=== PATIENT | female | born 1980 | race Caucasian/White ===

== ENCOUNTER 2016-05-31 16:09 | Inpatient (IN) | payer BC, MEDICAID, OTHER ==
--- NOTE | 2016-05-31 17:02 | ED ---
General Adult HPI - General Chief complaint: Psychiatric Symptoms Stated complaint: Mental Health Time Seen by Provider: 05/31/16 16:40 Source: patient, RN notes reviewed Mode of arrival: ambulatory Limitations: no limitations - History of Present Illness Initial comments: Patient 36-year-old female who presents emergency room today with a chief complaint of Court ordered psychiatric evaluation. Patient does admit that she missed an appointment. She states that the police showed up at her door and brought her here to the emergency room for evaluation. She denies any suicidal thoughts or plans. Denies any homicidal thoughts or plans. Denies any visual or auditory hallucinations. Patient denies any physical complaints. Patient denies any recent fever, chills, shortness of breath, chest pain, back pain, abdominal pain, nausea or vomiting, numbness or tingling, dysuria or hematuria, constipation or diarrhea, headaches or visual changes, or any other complaints. - Related Data Home Medications Medication Instructions Recorded Confirmed Dextroamphetamine/Amphetamine 30 mg PO BID 05/31/16 05/31/16 [Adderall] Venlafaxine HCl [Effexor XR] 150 mg PO DAILY 05/31/16 05/31/16 Previous Rx's Medication Instructions Recorded Divalproex ER [Depakote ER] 1,000 mg PO HS #60 tab.er.[id number] 01/04/16 Allergies Allergy/AdvReac Type Severity Reaction Status Date / Time No Known Allergies Allergy Verified 05/31/16 16:40 Review of Systems ROS Statement: Those systems with pertinent positive or pertinent negative responses have been documented in the HPI. ROS Other: All systems not noted in ROS Statement are negative. Past Medical History Past Medical History: Hypertension History of Any Multi-Drug Resistant Organisms: None Reported Additional Past Surgical History / Comment(s): breast implants Past Anesthesia/Blood Transfusion Reactions: No Reported Reaction Past Psychological History: ADD/ADHD, Bipolar Smoking Status: Former smoker Past Alcohol Use History: None Reported Additional Past Alcohol Use History / Comment(s): Patient has history of smoking and quit when she was 18 years old. She does use marijuana approximately once every 6 months. She drinks alcohol on a rare basis. She denies any medical marijuana card. She is currently but his left her . She has 3-year-old twins and one 6-year-old daughter. Past Drug Use History: None Reported - Past Family History Father Family Medical History: No Reported History Mother Family Medical History: No Reported History Brother(s) Family Medical History: No Reported History Sister(s) Family Medical History: No Reported History General Exam - General Exam Comments Initial Comments: General: The patient is awake and alert, in no distress, and does not appear acutely ill. Eye: Pupils are equal, round and reactive to light, extra-ocular movements are intact. No nystagmus. There is normal conjunctiva bilaterally. No signs of icterus. Ears, nose, mouth and throat: There are moist mucous membranes and no oral lesions. Neck: The neck is supple, there is no tenderness or JVD. Cardiovascular: There is a regular rate and rhythm. No murmur, rub or gallop is appreciated. Respiratory: Lungs are clear to auscultation, respirations are non-labored, breath sounds are equal. No wheezes, stridor, rales, or rhonchi. Gastrointestinal: Soft, non-distended, non-tender abdomen without masses or organomegaly noted. There is no rebound or guarding present. No CVA tenderness. Bowel sounds are unremarkable. Musculoskeletal: Normal ROM, no tenderness. Strength 5/5. Sensation intact. Pulses equal bilaterally 2+. Neurological: A&O x 3. CN II-XII intact, There are no obvious motor or sensory deficits. Coordination appears grossly intact. Speech is normal. Skin: Skin is warm and dry and no rashes or lesions are noted. Psychiatric: Cooperative. Limitations: no limitations Course Vital Signs 05/31/16 05/31/16 16:17 17:07 Temperature 98.0 F Pulse Rate 94 85 Respiratory 20 18 Rate Blood Pressure 243/134 172/103 O2 Sat by Pulse 100 99 Oximetry Medical Decision Making - Medical Decision Making Patient seen here the emergency room by [facility]. They recommend admission. Patient's blood pressure elevated here in the emergency room does have a history of hypertension but has not been taking her blood pressure medication. Patient has been ordered Norvasc. Will be admitted. - Lab Data Lab Results 05/31/16 Range/Units 18:51 Valproic Acid 20.7 ug/mL Disposition Clinical Impression: Bipolar disorder Disposition: TRANSFER TO PSYCH HOSP/UNIT Condition: Stable Time of Disposition: 19:40
[2016-05-31] MEDS: amLODIPine 5 MG TAB PO SCH (19:49)
[2016-05-31] MEDS ORDERED: ZIPRASIDONE 20 MG VIAL IM ONE (21:36)
[2016-05-31] MEDS ORDERED: WATER FOR INJECTION, STERILE 10 ML IV ONE (21:36)
[2016-05-31] MEDS ORDERED: LORazepam 2 MG/ML SYRINGE ONE (21:39)
[2016-05-31] MEDS ORDERED: LORazepam 2 MG/ML SYRINGE IM PRN (21:39)
[2016-05-31] MEDS: ZIPRASIDONE 20 MG VIAL IM PRN (21:59)
[2016-05-31] MEDS ORDERED: MAG HYDROX/AL HYDROX/SIMETH 30 ML CUP PO PRN (22:18)
[2016-05-31] MEDS ORDERED: LORazepam 1 MG TAB PO PRN (22:30)
[2016-05-31 22:59] LABS: Appearance,Urine Cloudy (Clear); Bilirubin,Urine Negative (Negative); Glucose,Urine (UA) Negative (Negative); Ketones,Urine Negative (Negative); Leukocyte Esterase,Urine Moderate (Negative); Mucus,Urine Occasional /hpf; Nitrite,Urine Negative (Negative); PH, Urine 6.5 (5.0-8.0); Particle Count 7449; Protein,Urine Trace (Negative); RBC,Urine 1 /hpf (0-5); Specific Gravity,Urine 1.012 (1.001-1.035); Squamous Epithelial Cell,Urine 9 /hpf (0-4); UA Billing (MACRO vs. MICRO) MICRO; Urobilinogen,Urine <2.0 mg/dL (<2.0); WBC,Urine 15 /hpf (0-5)
[2016-06-01] MEDS ORDERED: ZIPRASIDONE 20 MG CAP PO SCH (09:00)
[2016-06-01] MEDS ORDERED: WATER FOR INJECTION, STERILE 10 ML IV ONE (09:17)
[2016-06-01] MEDS: ZIPRASIDONE 20 MG VIAL IM PRN (09:27)
[2016-06-01 11:04] LABS: Basophils % (A) 0 %; CH 25.1; CHCM 31.5; Eosinophils # (A) 0.1 k/uL (0-0.7); Eosinophils % (A) 3 %; HCT 37.4 % (34.0-46.0); HDW 2.78; HGB 11.7 gm/dL (11.4-16.0); Hypochromasia Slight; Luc # (Auto) 0.09; Luc % (Auto) 2; Lymphocytes % (A) 27 %; MCH 24.9 pg (25.0-35.0); MCHC 31.2 g/dL (31.0-37.0); MCV 79.7 fL (80.0-100.0); Mean Platelet Volume 6.8; Monocytes # (A) 0.3 k/uL (0-1.0); Monocytes % (A) 8 %; Neutrophils # (A) 2.2 k/uL (1.3-7.7); Neutrophils % (A) 60 %; RBC 4.69 m/uL (3.80-5.40); RDW 14.7 % (11.5-15.5); WBC 3.7 k/uL (3.8-10.6); WBC (Perox) 3.97
[2016-06-01 11:13] LABS: ALT 22 U/L (9-52); AST 22 U/L (14-36); Alkaline Phosphatase 56 U/L (38-126); Anion Gap 9 mmol/L; Blood Urea Nitrogen 6 mg/dL (7-17); Calcium 9.3 mg/dL (8.4-10.2); Carbon Dioxide 29 mmol/L (22-30); Chloride 101 mmol/L (98-107); Glucose 91 mg/dL (74-99); Non-African American GFR(MDRD) >60 (>60 ml/min/1.73 sqM); Potassium 4.5 mmol/L (3.5-5.1); Sodium 139 mmol/L (137-145); Total Bilirubin 0.6 mg/dL (0.2-1.3); Total Protein 7.1 g/dL (6.3-8.2)
[2016-06-01] MEDS ORDERED: ZIPRASIDONE 20 MG VIAL IM PRN (11:51)
--- NOTE | 2016-06-01 12:32 | P.HP ---
Psychiatric H&P - . H&P Date: 06/01/16 History & Physical: IDENTIFYING DATA: Mr. Otto is a 36-year-old female who has history of a bipolar disorder.. HISTORY OF PRESENT ILLNESS: The police brought her to the emergency department with a pickup order for noncompliance with outpatient mental health treatment. She is on a 1 year involuntary treatment order due to persistent noncompliance with mental health treatment. She was loud, yelling profane and aggressive in the emergency department. She spit on some of the ER staff. Her management required administration of Geodon 20 mg and Ativan 1 mg IM. On arrival in the unit she remained agitated, angry and loud and profane. Since admission she has received 1 mg of lorazepam and 20 mg of Geodon IM. She insisted that I interview her in her room. She was pleasant on approach and alleged that there is no reason for her to have been admitted. She denied that she had been noncompliant with outpatient treatment attributing missed appointments to medical illness. She denied that she had been noncompliant with her prescribed medications-Abilify 5 mg and Depakote ER 500 mg. Urine drug screen was positive for amphetamines. PAST PSYCHIATRIC HISTORY: She has history of bipolar disorder and noncompliance with mental health treatment. She meets with Dr Escobedo at [facility] outpatient counseling services. His last appointment was 05/11/2016. She complained of headache with Invega Sustenna and Dr. Escobedo changed her medication from Invega to Abilify. She has had multiple prior psychiatric hospitalization (at least 6 to this facility). Her last admission was in December 2015 for noncompliance with an outpatient treatment order an acute symptoms of marquita and psychosis. Her discharge medications included Depakote ER 1000 mg at bedtime and Invega Sustenna 117 mg IM monthly. PAST MEDICAL HISTORY: Essential hypertension. ALLERGIES: NO KNOWN DRUG ALLERGIES. SUBSTANCE USE HISTORY: She denied use of alcohol or drugs. She has a history of use of psychostimulants including Adderall. According to record, she has a history of marijuana use. FAMILY PSYCHIATRIC/SUBSTANCE USE HISTORY: According to the medical record she has a family history of mental illness and alcohol use disorder.. LEGAL HISTORY: She denied that she is on probation, parole or has pending charges. SOCIAL HISTORY: She was born and raised in [facility]. She has an 11th grade education. She is and her has custody of her 3 children. She is unemployed and receives social security disability. MENTAL STATUS EXAM: She presented as a disheveled 36-year-old female who had a hospital gown and wrapped tightly around her head. She wrapped the towel around her head because she has a headache and "sinus problems". She maintained eye contact and appeared to attend to the interview. She had no prominent physical abnormalities. She had a bright facial expression. She is alert and oriented to person, place and time. She was restless but not agitated and did not demonstrate involuntary movements. She was irritable but not aggressive or agitated. Her speech was rapid with increased rhythm and volume. She demonstrated flight of ideas and pressured speech. She denied suicidal ideation or wishes. She denied homicidal ideation. She feels hopeless and helpless regarding her readmission. She ruminated on the injustice of this hospitalization. She did not express ideas of reference or clear paranoid ideation. Her thinking was concrete and logical. She did not demonstrate clang associations, neologisms or blocking. She denied hallucinations and did not appear to be responding to internal stimuli STRENGTHS: Good physical health, stable housing, stable income, WEAKNESSES: Noncompliance with mental health treatment resulting in multiple involuntary hospitalizations. IMPRESSION: Have she is a 36-year-old female with a well-established diagnosis of bipolar disorder. She presented involuntarily for noncompliance with a 1 year involuntary treatment order. She was irritable, restless, aggressive and disruptive in the emergency room and initially on the unit. Her management required administration of IM sedatives but not seclusion or restraint. She continues several symptoms of marquita including rapid speech, flight of ideas, restlessness and pressured speech. She did not express symptoms suggestive of psychosis such as hallucinations, organized delusional beliefs etc. PRINCIPLE DIAGNOSIS: Bipolar disorder most recent episode manic without psychotic symptoms, noncompliance with mental health treatment RECOMMENDATION: Continue with inpatient psychiatric hospitalization due to the severity of her manic symptoms. Increase Abilify to 15 mg daily and Depakote ER to 1000 mg at bedtime. Continue Geodon 20 mg IM twice a day and/or lorazepam 1 mg by mouth/IM every 6 hours when necessary for agitation. Encourage participation in therapeutic groups and activities as tolerated. Evaluate clinical status response to treatment on a daily basis. Allergies Allergy/AdvReac Type Severity Reaction Status Date / Time No Known Allergies Allergy Verified 05/31/16 16:40 Vital Signs Temp 97.9 F 05/31/16 22:36 Pulse 72 05/31/16 22:36 Resp 16 05/31/16 22:36 BP 135/69 05/31/16 22:36 Pulse Ox 100 05/31/16 19:45 Laboratory Last Values WBC 3.7 k/uL (3.8-10.6) L 06/01/16 10:40 RBC 4.69 m/uL (3.80-5.40) 06/01/16 10:40 Hgb 11.7 gm/dL (11.4-16.0) 06/01/16 10:40 Hct 37.4 % (34.0-46.0) 06/01/16 10:40 MCV 79.7 fL (80.0-100.0) L 06/01/16 10:40 MCH 24.9 pg (25.0-35.0) L 06/01/16 10:40 MCHC 31.2 g/dL (31.0-37.0) 06/01/16 10:40 RDW 14.7 % (11.5-15.5) 06/01/16 10:40 Plt Count 190 k/uL (150-450) 06/01/16 10:40 Neutrophils % 60 % 06/01/16 10:40 Lymphocytes % 27 % 06/01/16 10:40 Monocytes % 8 % 06/01/16 10:40 Eosinophils % 3 % 06/01/16 10:40 Basophils % 0 % 06/01/16 10:40 Neutrophils # 2.2 k/uL (1.3-7.7) 06/01/16 10:40 Lymphocytes # 1.0 k/uL (1.0-4.8) 06/01/16 10:40 Monocytes # 0.3 k/uL (0-1.0) 06/01/16 10:40 Eosinophils # 0.1 k/uL (0-0.7) 06/01/16 10:40 Basophils # 0.0 k/uL (0-0.2) 06/01/16 10:40 Hypochromasia Slight 06/01/16 10:40 Sodium 139 mmol/L (137-145) 06/01/16 10:40 Potassium 4.5 mmol/L (3.5-5.1) 06/01/16 10:40 Chloride 101 mmol/L (98-107) 06/01/16 10:40 Carbon Dioxide 29 mmol/L (22-30) 06/01/16 10:40 Anion Gap 9 mmol/L 06/01/16 10:40 BUN 6 mg/dL (7-17) L 06/01/16 10:40 Creatinine 0.72 mg/dL (0.52-1.04) 06/01/16 10:40 Est GFR (MDRD) Af Amer >60 (>60 ml/min/1.73 sqM) 06/01/16 10:40 Est GFR (MDRD) Non-Af >60 (>60 ml/min/1.73 sqM) 06/01/16 10:40 Glucose 91 mg/dL (74-99) 06/01/16 10:40 Calcium 9.3 mg/dL (8.4-10.2) 06/01/16 10:40 Total Bilirubin 0.6 mg/dL (0.2-1.3) 06/01/16 10:40 AST 22 U/L (14-36) 06/01/16 10:40 ALT 22 U/L (9-52) 06/01/16 10:40 Alkaline Phosphatase 56 U/L (38-126) 06/01/16 10:40 Total Protein 7.1 g/dL (6.3-8.2) 06/01/16 10:40 Albumin 3.8 g/dL (3.5-5.0) 06/01/16 10:40 TSH 0.977 mIU/L (0.465-4.680) 06/01/16 10:40 Urine Color Yellow 05/31/16 17:05 Urine Appearance Cloudy (Clear) H 05/31/16 17:05 Urine pH 6.5 (5.0-8.0) 05/31/16 17:05 Ur Specific [place] 1.012 (1.001-1.035) 05/31/16 17:05 Urine Protein Trace (Negative) H 05/31/16 17:05 Urine Glucose (UA) Negative (Negative) 05/31/16 17:05 Urine Ketones Negative (Negative) 05/31/16 17:05 Urine Blood Negative (Negative) 05/31/16 17:05 Urine Nitrate Negative (Negative) 05/31/16 17:05 Urine Bilirubin Negative (Negative) 05/31/16 17:05 Urine Urobilinogen <2.0 mg/dL (<2.0) 05/31/16 17:05 Ur Leukocyte Esterase Moderate (Negative) H 05/31/16 17:05 Urine RBC 1 /hpf (0-5) 05/31/16 17:05 Urine WBC 15 /hpf (0-5) H 05/31/16 17:05 Ur Squamous Epith Cells 9 /hpf (0-4) H 05/31/16 17:05 Urine Mucus Occasional /hpf (None) H 05/31/16 17:05 Urine HCG, Qual Not Detected (Not Detectd) 05/31/16 17:05 Urine Opiates Screen Not Detected (NotDetected) 05/31/16 17:05 Ur Oxycodone Screen Not Detected (NotDetected) 05/31/16 17:05 Urine Methadone Screen Not Detected (NotDetected) 05/31/16 17:05 Ur Propoxyphene Screen Not Detected (NotDetected) 05/31/16 17:05 Ur Barbiturates Screen Not Detected (NotDetected) 05/31/16 17:05 Valproic Acid 20.7 ug/mL 05/31/16 18:51 U Tricyclic Antidepress Not Detected (NotDetected) 05/31/16 17:05 Ur Phencyclidine Scrn Not Detected (NotDetected) 05/31/16 17:05 Ur Amphetamines Screen Detected (NotDetected) H 05/31/16 17:05 U Methamphetamines Scrn Not Detected (NotDetected) 05/31/16 17:05 U Benzodiazepines Scrn Not Detected (NotDetected) 05/31/16 17:05 Urine Cocaine Screen Not Detected (NotDetected) 05/31/16 17:05 U Marijuana (THC) Screen Not Detected (NotDetected) 05/31/16 17:05 06/01/16 12:05
[2016-06-01] MEDS: ARIPiprazole 15 MG TAB PO SCH (13:11)
--- NOTE | 2016-06-01 13:35 | P.CONS ---
History of Present Illness - Reason for Consult Consult date: 06/01/16 Medical history and physical - History of Present Illness 36 year old female with a history of bipolar disorder who was maintained on Abilify was brought into the hospital by the police as patient started be angry and started inappropriate behavior including spitting out some staff in the ER. Patient has some history of noncompliance with her treatments. Patient states her her main reason for her anger is her children were taken away from her due to the above-stated illness. In the recent times patient denies having any headaches, blurry vision, nausea, vomiting, abdominal pain, chest pain, difficulty breathing, urinary urgency or frequency, change in bowel habits. Patient does apparently have a history of isolated elevation of blood pressures especially when she is angry. She does maintain a blood pressure diary. She does state to understand that her use of Adderall could cause blood pressure elevation as well. She states that her last blood pressure was 120/72 at her PCPs office. During the time of my examination patient does have some flight of ideas. Comfort her head with his shirt and states that it protects her eyes is and is able to relieve intermittent headaches. Denies having any suicidal or homicidal ideations. Review of Systems All systems: negative (Noted in HPI) Past Medical History Past Medical History: Hypertension History of Any Multi-Drug Resistant Organisms: None Reported Additional Past Surgical History / Comment(s): breast implants Past Anesthesia/Blood Transfusion Reactions: No Reported Reaction Past Psychological History: ADD/ADHD, Bipolar Smoking Status: Former smoker Past Alcohol Use History: None Reported Additional Past Alcohol Use History / Comment(s): Patient has history of smoking and quit when she was 18 years old. She does use marijuana approximately once every 6 months. She drinks alcohol on a rare basis. She denies any medical marijuana card. She is currently but his left her . She has 3-year-old twins and one 6-year-old daughter. Past Drug Use History: None Reported - Past Family History Father Family Medical History: No Reported History Mother Family Medical History: No Reported History Brother(s) Family Medical History: No Reported History Sister(s) Family Medical History: No Reported History Medications and Allergies Home Medications Medication Instructions Recorded Confirmed Type Dextroamphetamine/Amphetamine 30 mg PO BID 05/31/16 05/31/16 History [Adderall] ARIPiprazole [ARIPiprazole] 5 mg PO DAILY 06/01/16 06/01/16 History Divalproex ER [Depakote ER] 500 mg PO HS 06/01/16 06/01/16 History Venlafaxine HCl [Venlafaxine HCl 37.5 mg PO DAILY 06/01/16 06/01/16 History ER] Allergies Allergy/AdvReac Type Severity Reaction Status Date / Time No Known Allergies Allergy Verified 05/31/16 16:40 Physical Exam Vitals: Vital Signs Temp Pulse Resp BP 05/31/16 22:36 97.9 F 72 16 135/69 Physical exam Gen. appearance oriented 3 in no distress Neck is supple no JVD Lungs good air entry clear to auscultation no rhonchi or wheezing Heart S1-S2 heard regular rate and rhythm no murmurs appreciated Abdomen is soft nontender no organomegaly bowel sounds are intact Neurologically cranial nerves II-12 grossly intact no focal motor or sensory deficits noted. Strength is 5 out of 5 in all 4 extremities no abnormal deep tendon reflexes appreciated Skin no abnormalities appreciated Psychiatric flight of ideas. No suicidal or homicidal ideations reported. Results CBC & Chem 7: 06/01/16 10:40 06/01/16 10:40 Labs: Abnormal Lab Results - Last 24 Hours (Table) 06/01/16 06/01/16 Range/Units 10:40 10:40 WBC 3.7 L (3.8-10.6) k/uL MCV 79.7 L (80.0-100.0) fL MCH 24.9 L (25.0-35.0) pg BUN 6 L (7-17) mg/dL Assessment and Plan Plan: #1 bipolar disorder with acute psychosis #2 remote history of intermittent elevated blood pressure e plan Continue current medications. Patient's blood pressure this a.m. was appropriate. Continue amlodipine and this should be continued even on discharge. She is to follow-up with her primary care thereafter. Thank you for the consultation. Patient is medically stable and no further workup is indicated.
[2016-06-01] MEDS: DIVALPROEX ER 500 MG TAB.ER.24H PO SCH (21:28)
[2016-06-02] MEDS: amLODIPine 5 MG TAB PO SCH (08:39)
[2016-06-02] MEDS: ARIPiprazole 15 MG TAB PO SCH (08:39)
--- NOTE | 2016-06-02 16:35 | P.PN ---
Progress Note - Text SUBJECTIVE: I reviewed the medical record and interviewed Ms. Otto. She is a 36-year-old female who has history of bipolar disorder. She presents unit involuntarily for noncompliance with treatment and recurrence of manic symptoms. She is on a one-year involuntary treatment order due to a persistent history of noncompliance. Note that her urine drug screen was positive for amphetamines. She complained of feeling sedated and requested that we decreased her medication. She requested repeatedly to be discharged so that she could "be with my 3 daughters." She feigned shock when I informed her that her current dose of Depakote is 1000 mg at bedtime. She alleged that his "too much" and the reason for her sedation. OBJECTIVE: She presented as a disheveled appearing 36-year-old female who was minimally cooperative. She appeared tired and moderately sedated. She made intermittent eye contact but appeared to attend to the interview. She had no physical abnormalities. She had a blunted facial expression. She showed psychomotor retardation but no abnormal movements. Her speech was spontaneous, slow with decreased rhythm and volume. Her affect appeared depressed. She denied suicidal ideation or wishes. She denied homicidal ideation. She did not expressed depressive cognitions such as hopelessness, helplessness and worthlessness. She ruminated about discharge. She did not express ideas reference or paranoid ideation. Her thinking was concrete but her associations were coherent and logical. She denied hallucinations and did not appear to be responding to internal stimuli. According to the MAR she has been compliant with both aripiprazole and Depakote. She slept 7 hours last night. She showed no behavioral problems and has not required use of when necessary medication for behavioral dyscontrol. ASSESSMENT: She is much less hyperactive, restless, irritable than on admission yesterday. The abrupt change in her presentation and the marked sedation maybe due to combination of medication noncompliance and use of psychostimulant medications. PLAN: Continue inpatient hospitalization for treatment of her bipolar illness. Decrease Abilify to 10 mg daily; consider changing to Abilify Maintenna prior to discharge. Continue Depakote 1000 mg at bedtime and obtain a serum valproic acid level and 3-4 days. Discussed the contribution of psychostimulant use to her rehospitalization. Encourage participation in therapeutic groups and activities. Evaluate clinical status and response to treatment daily basis.
[2016-06-02] MEDS: DIVALPROEX ER 500 MG TAB.ER.24H PO SCH (20:48)
[2016-06-03 06:55] VITALS: RESP 16
[2016-06-03] MEDS: ARIPiprazole 10 MG TAB PO SCH (09:38)
[2016-06-03] MEDS: amLODIPine 5 MG TAB PO SCH (09:38)
--- NOTE | 2016-06-03 15:27 | P.PN ---
Progress Note - Text SUBJECTIVE: I reviewed the medical record and interviewed Ms. Otto. She again requested to be discharged. She gave several reasons for needing to be discharged. She stated that she needs to make a partial payment of initial deposit for her apartment by June 08 or she would lose the apartment. She has a court hearing on Saturday for trespassing charges. She also perseverated on needing to "see my daughters." She denied that she intentionally missed her outpatient appointments; she alleged that she had rescheduled all of the missed appointments. OBJECTIVE: She presented as a disheveled appearing 36-year-old female who was minimally cooperative. She had a towel wrapped around her head for the treatment of headache and nasal congestion. She would not get out of bed for the interview. She made intermittent eye contact but appeared to attend to the interview. She had a blunted facial expression. She showed psychomotor retardation but no abnormal movements. She had pressured speech and flight of ideas. Affect was irritable. She denied suicidal ideation or wishes. She denied homicidal ideation. She did not expressed depressive cognitions such as hopelessness, helplessness and worthlessness. She ruminated about discharge. She did not express ideas reference or paranoid ideation. Her thinking was concrete but her associations were coherent and logical. She denied hallucinations and did not appear to be responding to internal stimuli. According to the MAR she has been compliant with both aripiprazole and Depakote. She slept 6 hours last night. She showed no behavioral problems and has not required use of when necessary medication for behavioral dyscontrol. ASSESSMENT: She appears moderately mentally ill and is slightly improved from admission. She continues to show signs and symptoms of hypomania including pressured speech, irritability and flight of ideas. PLAN: Continue inpatient hospitalization for treatment of her bipolar illness. Continue Abilify to 10 mg daily; consider changing to Abilify Maintenna prior to discharge. Continue Depakote 1000 mg at bedtime and obtain a serum valproic acid level and 3-4 days. Encourage participation in therapeutic groups and activities. Evaluate clinical status and response to treatment daily basis.
[2016-06-03] MEDS: DIVALPROEX ER 500 MG TAB.ER.24H PO SCH (20:19)
[2016-06-04] MEDS: ARIPiprazole 10 MG TAB PO SCH (08:08)
[2016-06-04] MEDS: amLODIPine 5 MG TAB PO SCH (08:09)
--- NOTE | 2016-06-04 11:59 | P.PN ---
Progress Note - Text SUBJECTIVE: I reviewed the medical record, interviewed Ms. Otto and discussed her treatment and treatment plan during team meeting. She complained of feeling fatigued and tired and complaining about the current dose of Depakote and Abilify. As she had on every encounter, she requested to be discharged. She again emphasized the need to make a partial initial deposit for apartment by June 08 or she would lose the apartment. She the June [address] for trespassing charges. As she has maintained during prior encounters she denied that she had intentionally missed scheduled outpatient mental health appointments or failed to keep terms of her involuntary treatment order. Today she alleged that she missed the appointments because she was caring for her 6 children. OBJECTIVE: She presented as a somewhat disheveled appearing 36-year-old female who was pleasant on approach. She was pleasant on approach. She made eye contact and appeared to attend to the interview. She had a blunted. bright facial expression. She showed no abnormality of psychomotor activity and no abnormal movements. Her speech was spontaneous with normal rate , rhythm rhythm and volume. Her affect was blunted but stable and appropriate. She was not hyperverbal and did not demonstrate flight of ideas. She denied suicidal ideation or wishes. She denied homicidal ideation. She did not expressed depressive cognitions such as hopelessness, helplessness and worthlessness. She ruminated about discharge. She did not express ideas reference or paranoid ideation. Her thinking was concrete but her associations were coherent and logical. She denied hallucinations and did not appear to be responding to internal stimuli. According to the MAR she has been compliant with both aripiprazole and Depakote. She slept 7 hours last night. She showed no behavioral problems and has not required use of when necessary medication for behavioral dyscontrol. ASSESSMENT: She appears moderately mentally ill and is marked improved from admission. She does not appear hypomanic. I suspect that her presentation was related to use of psychostimulant medications. PLAN: Continue inpatient hospitalization for treatment of her bipolar illness. Continue Abilify to 10 mg daily; consider changing to Abilify Maintenna prior to discharge. Continue Depakote 1000 mg at bedtime and obtain a serum valproic acid level and 3-4 days. Encourage participation in therapeutic groups and activities. Evaluate clinical status and response to treatment daily basis. I sent her primary care provider, Dr. Sarthak Jean, a letter requesting him not to prescribe her psychostimulant medications.
[2016-06-04 14:44] VITALS: BMI 28.8
[2016-06-04] MEDS: DIVALPROEX ER 500 MG TAB.ER.24H PO SCH (19:59)
[2016-06-05 06:04] VITALS: BP 137/87; PULSE 65; TEMP 97.9
[2016-06-05] MEDS: ARIPiprazole 10 MG TAB PO SCH (08:29)
[2016-06-05] MEDS: amLODIPine 5 MG TAB PO SCH (08:29)
--- NOTE | 2016-06-05 13:50 | P.DS ---
Providers Date of admission: 05/31/16 21:18 Attending physician: Anastacio Negrete MD Consults: 05/31/16 22:18 Consult Physician Routine Consulting Provider: Zoila Aguilar Consult Reason/Comments: H and P with medical follow up. 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 Otto is a 36-year-old female who has history of a bipolar disorder. The police brought her to the emergency department with a pickup order for noncompliance with outpatient mental health treatment. She is on a 1 year involuntary treatment order due to persistent noncompliance with mental health treatment. She was loud, yelling profane and aggressive in the emergency department. She spit on some of the ER staff. Her management required administration of Geodon 20 mg and Ativan 1 mg IM. On arrival in the unit she remained agitated, angry and loud and profane. Since admission she has received 1 mg of lorazepam and 20 mg of Geodon IM. She insisted that I interview her in her room. She was pleasant on approach and alleged that there is no reason for her to have been admitted. She denied that she had been noncompliant with outpatient treatment attributing missed appointments to medical illness. She denied that she had been noncompliant with her prescribed medications-Abilify 5 mg and Depakote ER 500 mg. Urine drug screen was positive for amphetamines. She has history of bipolar disorder and noncompliance with mental health treatment. She meets with Dr Escobedo at [facility] outpatient counseling services. His last appointment was 05/11/2016. She complained of headache with Invega Sustenna and Dr. Escobedo changed her medication from Invega to Abilify. She has had multiple prior psychiatric hospitalization (at least 6 to this facility). Her last admission was in December 2015 for noncompliance with an outpatient treatment order an acute symptoms of marquita and psychosis. Her discharge medications included Depakote ER 1000 mg at bedtime and Invega Sustenna 117 mg IM monthly. We admitted to the psychiatric unit under the care of this news writer. We provided a biopsychosocial assessment. The microsoft bi consultant services engineer completed the initial physical exam and medical history. The microsoft bi consultant diagnosed a remote history of intermittent elevated blood pressure and, after subsequent monitoring, prescribed Norvasc 5 mg daily. Her blood pressure on the day of discharge was 137/87. We increased Abilify to 15 mg daily and Depakote 1000 mg at bedtime. She complained of sedation from the increased dose of Abilify and we decreased the dose to 10 mg daily. Her marquita abated fairly quickly and was followed by a period of hypersomnia and lassitude. We suspect that her presentation was related to her use of psychostimulant medications. We did not prescribed Adderall and we do not recommend that she continue Adderall. We sent her to her primary care provider a letter requesting his assistance by not prescribing her psychostimulants. From our first encounter and every day throughout the hospitalization she requested to be discharged. Her reasons including a pending court hearing for a trespassing charge, housing issues and the needs of her children. At time of discharge she was alert and fully oriented. She was pleasant on approach. She displayed no signs or symptoms of marquita or hypomania. She continues to maintain her need for psychostimulant medications and disagrees with our medical recommendation that she not take psychostimulants. She has a follow-up appointment with her outpatient providers. Patient Condition at Discharge: Stable Plan - Discharge Summary New Discharge Prescriptions: ARIPiprazole [Abilify] 10 mg PO DAILY 30 Days Divalproex ER [Depakote ER] 1,000 mg PO HS 30 Days amLODIPine [Norvasc] 5 mg PO DAILY 30 Days Discharge Medication List ARIPiprazole [Abilify] 10 mg PO DAILY 30 Days 06/05/16 [Rx] Divalproex ER [Depakote ER] 1,000 mg PO HS 30 Days 06/05/16 [Rx] amLODIPine [Norvasc] 5 mg PO DAILY 30 Days 06/05/16 [Rx] Follow up Appointment(s)/Referral(s): [facility] [Outside] - 1 Week (w/ Cami Etienne on 06/06/16 @ 10am w/ Dr. Escobedo on 06/21/16 @ 9:40am ) None,Stated [Primary Care Provider] - 1-2 days Patient Instructions/Handouts: Bipolar Disorder (DC) Activity/Diet/Wound Care/Special Instructions: Activity and diet as tolerated. Avoid the use of street drugs and alcohol. Take all medications as prescribed. When you are in of refills on your medications please contact your outpatient medical doctor and/or outpatient psychiatrist to have this done. Please go to your scheduled outpatient appointment for aftercare. If symptoms return or become worse call the crisis line at [phone] and/or go to the nearest emergency room for an evaluation. Discharge Disposition: HOME SELF-CARE
== END 2016-06-05 10:20 | disposition home or self-care (01) | DRG 885 ==
LOC: EC 16:09 → 3MHU 21:18
PROVIDERS: ADMIT Psychiatry & Neurology Psychiatry; ATTEND Psychiatry & Neurology Psychiatry
DX: F31.9 Bipolar disorder, unspecified (principal); F23 Brief psychotic disorder; I10 Essential (primary) hypertension; F12.90 Cannabis use, unspecified, uncomplicated; F90.9 Attention-deficit hyperactivity disorder, unspecified type; G47.10 Hypersomnia, unspecified; F15.10 Other stimulant abuse, uncomplicated; F19.10 Other psychoactive substance abuse, uncomplicated; Z91.19 Patient's noncompliance with other medical treatment and regimen; Z79.899 Other long term (current) drug therapy; Z87.891 Personal history of nicotine dependence
CPT/HCPCS: 36415; 80053; 80164; 80306; 81001; 81025; 84443; 85025; 99284

== ENCOUNTER 2017-09-27 22:50 | Inpatient (IN) | payer BC, MEDICAID ==
--- NOTE | 2017-09-27 23:14 | ED ---
Psych HPI - General Source: police, RN notes reviewed Mode of arrival: wheelchair - History of Present Illness MD Complaint: other <Raul Langofrd - Last Filed: 09/28/17 00:19> <Raul Barr - Last Filed: 09/28/17 06:06> - General Chief Complaint: Psychiatric Symptoms Stated Complaint: Petition Time Seen by Provider: 09/27/17 23:06 - History of Present Illness Initial Comments: This is a 37-year-old female history of bipolar disorder and psychosis who is brought in under petition by police she barely 7 taking her medications for past several days until earlier shoulder she does need them anymore she is been text seen people about demons she also states she woke up in a jungle she thought her kids were. Additionally she is very combative and verbally abusive and spitting at personnel. being tortured. (Raul Langford) - Related Data Previous Rx's Medication Instructions Recorded ARIPiprazole [Abilify] 10 mg PO DAILY 30 Days tab 06/05/16 Divalproex ER [Depakote ER] 1,000 mg PO HS 30 Days tab.er.24h 06/05/16 amLODIPine [Norvasc] 5 mg PO DAILY 30 Days tab 06/05/16 Allergies Allergy/AdvReac Type Severity Reaction Status Date / Time No Known Allergies Allergy Verified 05/31/16 16:40 Review of Systems ROS Other: All systems not noted in ROS Statement are negative. Limitations: ROS unobtainable due to patients medical condition <Raul Langford - Last Filed: 09/28/17 00:19> ROS Other: All systems not noted in ROS Statement are negative. <Raul Barr - Last Filed: 09/28/17 06:06> ROS Statement: Those systems with pertinent positive or pertinent negative responses have been documented in the HPI. Past Medical History Past Medical History: Hypertension History of Any Multi-Drug Resistant Organisms: None Reported Additional Past Surgical History / Comment(s): breast implants Past Anesthesia/Blood Transfusion Reactions: No Reported Reaction Past Psychological History: ADD/ADHD, Bipolar Smoking Status: Former smoker Past Alcohol Use History: Unable to Obtain Past Drug Use History: Unable to Obtain - Past Family History Father Family Medical History: No Reported History Mother Family Medical History: No Reported History Brother(s) Family Medical History: No Reported History Sister(s) Family Medical History: No Reported History <PrimitivoRaul - Last Filed: 09/28/17 00:19> General Exam Limitations: no limitations General appearance: alert, anxious Head exam: Present: atraumatic, normocephalic, normal inspection Eye exam: Present: normal appearance, PERRL, EOMI. Absent: scleral icterus, conjunctival injection, periorbital swelling ENT exam: Present: normal exam, mucous membranes moist Neck exam: Present: normal inspection. Absent: tenderness, meningismus, lymphadenopathy Respiratory exam: Present: normal lung sounds bilaterally. Absent: respiratory distress, wheezes, rales, rhonchi, stridor Cardiovascular Exam: Present: regular rate, normal rhythm, normal heart sounds. Absent: systolic murmur, diastolic murmur, rubs, gallop, clicks GI/Abdominal exam: Present: soft, normal bowel sounds. Absent: distended, tenderness, guarding, rebound, rigid Extremities exam: Present: normal inspection, full ROM, normal capillary refill. Absent: tenderness, pedal edema, joint swelling, calf tenderness Back exam: Present: normal inspection Neurological exam: Present: alert, altered, CN II-XII intact Psychiatric exam: Present: agitated, anxious, manic Skin exam: Present: warm, dry, intact, normal color. Absent: rash <Raul Langford - Last Filed: 09/28/17 00:19> <Raul Barr - Last Filed: 09/28/17 06:06> - General Exam Comments Initial Comments: This a well-developed well-nourished awake alert and agitated female demonstrate a very aggressive behavior and abusive language. She is verbally and physically threatening. (Raul Langford) Course <Raul Langford - Last Filed: 09/28/17 00:19> <Raul Barr N - Last Filed: 09/28/17 06:06> Vital Signs 09/28/17 09/28/17 09/28/17 01:19 03:06 03:45 Temperature 97.4 F L Pulse Rate 72 89 Respiratory 18 17 18 Rate Blood Pressure 139/106 133/82 O2 Sat by Pulse 100 98 Oximetry 09/28/17 04:40 Temperature Pulse Rate Respiratory 18 Rate Blood Pressure O2 Sat by Pulse Oximetry - Reevaluation(s) Reevaluation #1: 09/28/17 00:18 Patient is resting comfortably after sedation. The patient's-year-old be endorsed to Dr. Barr at our shift change. (Raul Langford) Reevaluation #2: 09/28/17 00:19 I did review the petition. I did discuss the presentation and initial findings by the police officers brought the patient. (Raul Langford) Procedures - Restraint - Face to Face Restraint Occurrence 1 Patient's Immediate Situation: Endangers self safety, Endangers others' safety, Endangers staff safety, Violent behavior Patient's Reaction to the Intervention: Uncooperative, Angry, Hostile, Belligerent, Bizarre, Aggressive, Combative, Resistive to care Need to Continue or Terminate Restraint or Seclusion: Continue Face to Face Eval of Restraint Date: 09/27/17 Face to Face Eval of Restraint Time: 11:00 <Raul Langford - Last Filed: 09/28/17 00:19> <Raul Barr - Last Filed: 09/28/17 06:06> - Restraint - Face to Face Restraint Occurrence 1 Patient's Immediate Situation - Comment: The patient is threatening spitting at staff members very combative. Aggressive verbally abusive (Raul Langford) Medical Decision Making <Raul Langford - Last Filed: 09/28/17 00:19> - Lab Data Result diagrams: 09/28/17 00:34 09/28/17 00:34 <Raul Barr - Last Filed: 09/28/17 06:06> - Medical Decision Making 37-year-old female with acute psychosis, care signed out at shift change. Patient is medically cleared and evaluated by EPS. She will be admitted for further evaluation and treatment. I was able to evaluate the patient and completed clinical certification. (Raul Barr) - Lab Data Lab Results 09/28/17 09/28/17 09/28/17 Range/Units 00:34 00:34 00:34 WBC 4.2 (3.8-10.6) k/uL RBC 4.57 (3.80-5.40) m/uL Hgb 12.9 (11.4-16.0) gm/dL Hct 38.1 (34.0-46.0) % MCV 83.4 (80.0-100.0) fL MCH 28.2 (25.0-35.0) pg MCHC 33.9 (31.0-37.0) g/dL RDW 14.3 (11.5-15.5) % Plt Count 235 (150-450) k/uL Neutrophils % 60 % Lymphocytes % 30 % Monocytes % 7 % Eosinophils % 1 % Basophils % 0 % Neutrophils # 2.5 (1.3-7.7) k/uL Lymphocytes # 1.3 (1.0-4.8) k/uL Monocytes # 0.3 (0-1.0) k/uL Eosinophils # 0.0 (0-0.7) k/uL Basophils # 0.0 (0-0.2) k/uL Sodium 140 (137-145) mmol/L Potassium 3.0 L* (3.5-5.1) mmol/L Chloride 104 (98-107) mmol/L Carbon Dioxide 24 (22-30) mmol/L Anion Gap 12 mmol/L BUN 12 (7-17) mg/dL Creatinine 0.50 L (0.52-1.04) mg/dL Est GFR (CKD-EPI)AfAm >90 (>60 ml/min/1.73 sqM) Est GFR (CKD-EPI)NonAf >90 (>60 ml/min/1.73 sqM) Glucose 95 (74-99) mg/dL Calcium 9.6 (8.4-10.2) mg/dL Total Bilirubin 0.7 (0.2-1.3) mg/dL AST 41 H (14-36) U/L ALT 41 (9-52) U/L Alkaline Phosphatase 48 (38-126) U/L Total Creatine Kinase 403 H (30-135) U/L CK-MB (CK-2) 6.9 H* (0.0-2.4) ng/mL CK-MB (CK-2) Rel Index 1.7 Total Protein 7.0 (6.3-8.2) g/dL Albumin 4.2 (3.5-5.0) g/dL Urine Color Urine Appearance (Clear) Urine pH (5.0-8.0) Ur Specific [place] (1.001-1.035) Urine Protein (Negative) Urine Glucose (UA) (Negative) Urine Ketones (Negative) Urine Blood (Negative) Urine Nitrite (Negative) Urine Bilirubin (Negative) Urine Urobilinogen (<2.0) mg/dL Ur Leukocyte Esterase (Negative) Urine RBC (0-5) /hpf Urine WBC (0-5) /hpf Urine Bacteria (None) /hpf Hyaline Casts (0-2) /lpf Urine Mucus (None) /hpf Urine HCG, Qual (Not Detectd) Salicylates <1.0 mg/dL Urine Opiates Screen (NotDetected) Ur Oxycodone Screen (NotDetected) Urine Methadone Screen (NotDetected) Ur Propoxyphene Screen (NotDetected) Acetaminophen <10.0 ug/mL Ur Barbiturates Screen (NotDetected) U Tricyclic Antidepress (NotDetected) Ur Phencyclidine Scrn (NotDetected) Ur Amphetamines Screen (NotDetected) U Methamphetamines Scrn (NotDetected) U Benzodiazepines Scrn (NotDetected) Urine Cocaine Screen (NotDetected) U Marijuana (THC) Screen (NotDetected) Serum Alcohol <10 mg/dL 09/28/17 09/28/17 Range/Units 01:17 01:17 WBC (3.8-10.6) k/uL RBC (3.80-5.40) m/uL Hgb (11.4-16.0) gm/dL Hct (34.0-46.0) % MCV (80.0-100.0) fL MCH (25.0-35.0) pg MCHC (31.0-37.0) g/dL RDW (11.5-15.5) % Plt Count (150-450) k/uL Neutrophils % % Lymphocytes % % Monocytes % % Eosinophils % % Basophils % % Neutrophils # (1.3-7.7) k/uL Lymphocytes # (1.0-4.8) k/uL Monocytes # (0-1.0) k/uL Eosinophils # (0-0.7) k/uL Basophils # (0-0.2) k/uL Sodium (137-145) mmol/L Potassium (3.5-5.1) mmol/L Chloride (98-107) mmol/L Carbon Dioxide (22-30) mmol/L Anion Gap mmol/L BUN (7-17) mg/dL Creatinine (0.52-1.04) mg/dL Est GFR (CKD-EPI)AfAm (>60 ml/min/1.73 sqM) Est GFR (CKD-EPI)NonAf (>60 ml/min/1.73 sqM) Glucose (74-99) mg/dL Calcium (8.4-10.2) mg/dL Total Bilirubin (0.2-1.3) mg/dL AST (14-36) U/L ALT (9-52) U/L Alkaline Phosphatase (38-126) U/L Total Creatine Kinase (30-135) U/L CK-MB (CK-2) (0.0-2.4) ng/mL CK-MB (CK-2) Rel Index Total Protein (6.3-8.2) g/dL Albumin (3.5-5.0) g/dL Urine Color Dark Yellow Urine Appearance Turbid H (Clear) Urine pH 6.0 (5.0-8.0) Ur Specific [place] 1.028 (1.001-1.035) Urine Protein 2+ H (Negative) Urine Glucose (UA) Negative (Negative) Urine Ketones 1+ H (Negative) Urine Blood Negative (Negative) Urine Nitrite Negative (Negative) Urine Bilirubin 1+ H (Negative) Urine Urobilinogen 4.0 (<2.0) mg/dL Ur Leukocyte Esterase Moderate H (Negative) Urine RBC 2 (0-5) /hpf Urine WBC 126 H (0-5) /hpf Urine Bacteria Occasional H (None) /hpf Hyaline Casts 146 H (0-2) /lpf Urine Mucus Many H (None) /hpf Urine HCG, Qual Not Detected (Not Detectd) Salicylates mg/dL Urine Opiates Screen Not Detected (NotDetected) Ur Oxycodone Screen Not Detected (NotDetected) Urine Methadone Screen Not Detected (NotDetected) Ur Propoxyphene Screen Not Detected (NotDetected) Acetaminophen ug/mL Ur Barbiturates Screen Not Detected (NotDetected) U Tricyclic Antidepress Not Detected (NotDetected) Ur Phencyclidine Scrn Not Detected (NotDetected) Ur Amphetamines Screen Detected H (NotDetected) U Methamphetamines Scrn Not Detected (NotDetected) U Benzodiazepines Scrn Detected H (NotDetected) Urine Cocaine Screen Not Detected (NotDetected) U Marijuana (THC) Screen Detected H (NotDetected) Serum Alcohol mg/dL Disposition <Raul Langford - Last Filed: 09/28/17 00:19> Is patient prescribed a controlled substance at d/c from ED?: No Time of Disposition: 06:06 Decision to Admit Reason: Admit from EC Decision Date: 09/28/17 Decision Time: 06:06 <Raul Barr - Last Filed: 09/28/17 06:06> Clinical Impression: Acute psychosis, Bipolar disorder Disposition: ADMITTED IP TO THIS [facility] Condition: Stable Referrals: None,Stated [Primary Care Provider] - 1-2 days
[2017-09-27] MEDS ORDERED: LORazepam 2 MG/ML INJ IM STA (23:37)
[2017-09-27] MEDS ORDERED: ZIPRASIDONE 20 MG VIAL IM STA (23:37)
[2017-09-28 01:10] LABS: ALT 41 U/L (9-52); AST 41 U/L (14-36); Acetaminophen <10.0 ug/mL; Albumin 4.2 g/dL (3.5-5.0); Alcohol <10 mg/dL; Alkaline Phosphatase 48 U/L (38-126); Anion Gap 12 mmol/L; Blood Urea Nitrogen 12 mg/dL (7-17); Calcium 9.6 mg/dL (8.4-10.2); Carbon Dioxide 24 mmol/L (22-30); Chloride 104 mmol/L (98-107); Glucose 95 mg/dL (74-99); Salicylate <1.0 mg/dL; Sodium 140 mmol/L (137-145); Total Bilirubin 0.7 mg/dL (0.2-1.3)
[2017-09-28] MEDS ORDERED: POTASSIUM BICARBONATE/CIT AC 20 MEQ TABLET.EFF PO ONE (01:49)
[2017-09-28 01:55] LABS: Creatine Kinase MB 6.9 ng/mL (0.0-2.4)
[2017-09-28 02:05] LABS: Basophils % (A) 0 %; Eosinophils % (A) 1 %; HCT 38.1 % (34.0-46.0); HGB 12.9 gm/dL (11.4-16.0); Lymphocytes # (A) 1.3 k/uL (1.0-4.8); Lymphocytes % (A) 30 %; MCH 28.2 pg (25.0-35.0); MCHC 33.9 g/dL (31.0-37.0); MCV 83.4 fL (80.0-100.0); Mean Platelet Volume 7.3; Monocytes # (A) 0.3 k/uL (0-1.0); Monocytes % (A) 7 %; Neutrophils # (A) 2.5 k/uL (1.3-7.7); Neutrophils % (A) 60 %; Platelet Count 235 k/uL (150-450); RBC 4.57 m/uL (3.80-5.40); RDW 14.3 % (11.5-15.5); WBC 4.2 k/uL (3.8-10.6)
[2017-09-28 02:17] LABS: Appearance,Urine Turbid (Clear); Bacteria,Urine Occasional /hpf; Bilirubin,Urine 1+ (Negative); Blood,Urine Negative (Negative); Color,Urine Dark Yellow; Glucose,Urine (UA) Negative (Negative); Hyaline Casts,Urine 146 /lpf (0-2); Ketones,Urine 1+ (Negative); Leukocyte Esterase,Urine Moderate (Negative); Mucus,Urine Many /hpf; Nitrite,Urine Negative (Negative); Protein,Urine 2+ (Negative); RBC,Urine 2 /hpf (0-5); Specific Gravity,Urine 1.028 (1.001-1.035); WBC,Urine 126 /hpf (0-5)
[2017-09-28 02:24] LABS: Amphetamine Screen,Urine Detected (NotDetected); Barbiturate Screen,Urine Not Detected (NotDetected); Benzodiazepines Screen,Urine Detected (NotDetected); Cocaine Screen,Urine Not Detected (NotDetected); Methadone Screen, Urine Not Detected (NotDetected); Opiate Screen,Urine Not Detected (NotDetected); Oxycodone Screen, Urine Not Detected (NotDetected); Phencyclidine Screen,Urine Not Detected (NotDetected); Tricyclic Antidepressant,Urine Not Detected (NotDetected); Urn Cannabinoid Scrn Detected (NotDetected)
[2017-09-28] MEDS ORDERED: ACETAMINOPHEN TAB 325 MG TAB PO PRN (07:50)
[2017-09-28] MEDS ORDERED: MAG HYDROX/AL HYDROX/SIMETH 30 ML CUP PO PRN (07:50)
[2017-09-28] MEDS ORDERED: MAGNESIUM HYDROXIDE 2,400 MG/10 ML CUP PO PRN (07:50)
[2017-09-28] MEDS ORDERED: LORazepam 1 MG TAB PO PRN (07:50)
[2017-09-28 08:06] VITALS: RESP 20; TEMP 98
[2017-09-28 09:36] VITALS: BP 147/97; PULSE 70
[2017-09-28] MEDS: ZIPRASIDONE 20 MG VIAL IM PRN (10:18)
[2017-09-28] MEDS: LORazepam 2 MG/ML INJ IM PRN (10:19)
--- NOTE | 2017-09-28 19:33 | P.HP ---
Psychiatric H&P - . H&P Date: 09/28/17 History & Physical: Allergies Allergy/AdvReac Type Severity Reaction Status Date / Time No Known Allergies Allergy Verified 05/31/16 16:40 Vital Signs Temp 98.0 F 09/28/17 08:05 Pulse 70 09/28/17 09:24 Resp 20 09/28/17 09:24 BP 147/97 09/28/17 09:24 Pulse Ox 99 09/28/17 08:05 Intake & Output 09/28/17 09/28/17 09/29/17 06:59 18:59 06:59 Weight 74.843 kg Laboratory Last Values WBC 4.2 k/uL (3.8-10.6) 09/28/17 00:34 RBC 4.57 m/uL (3.80-5.40) 09/28/17 00:34 Hgb 12.9 gm/dL (11.4-16.0) 09/28/17 00:34 Hct 38.1 % (34.0-46.0) 09/28/17 00:34 MCV 83.4 fL (80.0-100.0) 09/28/17 00:34 MCH 28.2 pg (25.0-35.0) 09/28/17 00:34 MCHC 33.9 g/dL (31.0-37.0) 09/28/17 00:34 RDW 14.3 % (11.5-15.5) 09/28/17 00:34 Plt Count 235 k/uL (150-450) 09/28/17 00:34 Neutrophils % 60 % 09/28/17 00:34 Lymphocytes % 30 % 09/28/17 00:34 Monocytes % 7 % 09/28/17 00:34 Eosinophils % 1 % 09/28/17 00:34 Basophils % 0 % 09/28/17 00:34 Neutrophils # 2.5 k/uL (1.3-7.7) 09/28/17 00:34 Lymphocytes # 1.3 k/uL (1.0-4.8) 09/28/17 00:34 Monocytes # 0.3 k/uL (0-1.0) 09/28/17 00:34 Eosinophils # 0.0 k/uL (0-0.7) 09/28/17 00:34 Basophils # 0.0 k/uL (0-0.2) 09/28/17 00:34 Sodium 140 mmol/L (137-145) 09/28/17 00:34 Potassium 3.0 mmol/L (3.5-5.1) L* 09/28/17 00:34 Chloride 104 mmol/L (98-107) 09/28/17 00:34 Carbon Dioxide 24 mmol/L (22-30) 09/28/17 00:34 Anion Gap 12 mmol/L 09/28/17 00:34 BUN 12 mg/dL (7-17) 09/28/17 00:34 Creatinine 0.50 mg/dL (0.52-1.04) L 09/28/17 00:34 Est GFR (CKD-EPI)AfAm >90 (>60 ml/min/1.73 sqM) 09/28/17 00:34 Est GFR (CKD-EPI)NonAf >90 (>60 ml/min/1.73 sqM) 09/28/17 00:34 Glucose 95 mg/dL (74-99) 09/28/17 00:34 Calcium 9.6 mg/dL (8.4-10.2) 09/28/17 00:34 Total Bilirubin 0.7 mg/dL (0.2-1.3) 09/28/17 00:34 AST 41 U/L (14-36) H 09/28/17 00:34 ALT 41 U/L (9-52) 09/28/17 00:34 Alkaline Phosphatase 48 U/L (38-126) 09/28/17 00:34 Total Creatine Kinase 403 U/L (30-135) H 09/28/17 00:34 CK-MB (CK-2) 6.9 ng/mL (0.0-2.4) H* 09/28/17 00:34 CK-MB (CK-2) Rel Index 1.7 09/28/17 00:34 Total Protein 7.0 g/dL (6.3-8.2) 09/28/17 00:34 Albumin 4.2 g/dL (3.5-5.0) 09/28/17 00:34 Urine Color Dark Yellow 09/28/17 01:17 Urine Appearance Turbid (Clear) H 09/28/17 01:17 Urine pH 6.0 (5.0-8.0) 09/28/17 01:17 Ur Specific [place] 1.028 (1.001-1.035) 09/28/17 01:17 Urine Protein 2+ (Negative) H 09/28/17 01:17 Urine Glucose (UA) Negative (Negative) 09/28/17 01:17 Urine Ketones 1+ (Negative) H 09/28/17 01:17 Urine Blood Negative (Negative) 09/28/17 01:17 Urine Nitrite Negative (Negative) 09/28/17 01:17 Urine Bilirubin 1+ (Negative) H 09/28/17 01:17 Urine Urobilinogen 4.0 mg/dL (<2.0) 09/28/17 01:17 Ur Leukocyte Esterase Moderate (Negative) H 09/28/17 01:17 Urine RBC 2 /hpf (0-5) 09/28/17 01:17 Urine WBC 126 /hpf (0-5) H 09/28/17 01:17 Urine Bacteria Occasional /hpf (None) H 09/28/17 01:17 Hyaline Casts 146 /lpf (0-2) H 09/28/17 01:17 Urine Mucus Many /hpf (None) H 09/28/17 01:17 Urine HCG, Qual Not Detected (Not Detectd) 09/28/17 01:17 Salicylates <1.0 mg/dL 09/28/17 00:34 Urine Opiates Screen Not Detected (NotDetected) 09/28/17 01:17 Ur Oxycodone Screen Not Detected (NotDetected) 09/28/17 01:17 Urine Methadone Screen Not Detected (NotDetected) 09/28/17 01:17 Ur Propoxyphene Screen Not Detected (NotDetected) 09/28/17 01:17 Acetaminophen <10.0 ug/mL 09/28/17 00:34 Ur Barbiturates Screen Not Detected (NotDetected) 09/28/17 01:17 Valproic Acid <10.0 ug/mL 09/28/17 00:34 U Tricyclic Antidepress Not Detected (NotDetected) 09/28/17 01:17 Ur Phencyclidine Scrn Not Detected (NotDetected) 09/28/17 01:17 Ur Amphetamines Screen Detected (NotDetected) H 09/28/17 01:17 U Methamphetamines Scrn Not Detected (NotDetected) 09/28/17 01:17 U Benzodiazepines Scrn Detected (NotDetected) H 09/28/17 01:17 Urine Cocaine Screen Not Detected (NotDetected) 09/28/17 01:17 U Marijuana (THC) Screen Detected (NotDetected) H 09/28/17 01:17 Serum Alcohol <10 mg/dL 09/28/17 00:34 09/28/17 19:25 Identifying information 37 year old woman. She says she has three beautiful daughters. She says she doesnt believe in [place] marriage system and refuses to answer questions about her marital status. She says she has been seeing a pamela whom she had known for many years. 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 She also reports she gets SSI. Chief complaint: She says Dr. Warren signed a piece of paper and a bunch of police came to my house, put me in hand cuffs and brought me to the hospital with out my permission. History of presenting illness She says I am doing well, minding my own business. She says she is not mentally and does not need any medications. She says she is not going to sign any papers. She reports God will take care of her. She reports people hate her due to her natural talents. She says all she needs is her family and her children. She reports she can go to God with her problems. She reports she wants to look nice and dress nice and complains that she doesnt have nice clothes to wear in the hospital. She denies history of auditory or visual hallucinations. She reports feeling paranoid, but refuses to talk further about it and says who doesnt feel paranoid . When asked about mood swings, she says every one will have mood swings. She says she should not even be in the hospital stating she has not anything harmful to self or others. She has no insight into her mental illness. She was petitioned by her ex-. Per petition she is non complaint with her prescribed medications and is sending text messages about demons, its ok if she dies taking a bubble bath, waking up in the jungle with her children being tortured, killed etc. Upon arrival in the ER she was very combative, verbally abusive, threatening and spitting on staff. She has to be restrained and sedated due to her combative and threatening behaviors. On the unit patient received prn injectable medications such as geodon and ativan due to her being loud, disruptive, hostile, obnoxious, throwing things at staff and hitting them. She is also paranoid about government taking her Kids away from her and calling staff demons. She is impulsive , irritable with pressured, tangential speech. Due to her established history of medication non compliance she had been treated with involuntary treatment orders before. PAST PSYCHIATRIC HISTORY: Multiple psychiatric hospitalizations due to her established history of medication non compliance. Has been treated with various psychotropic medications such as invega, abilify, depakote, She has history of bipolar disorder and follows up with [facility] outpatient counseling services PAST MEDICAL HISTORY: Essential hypertension. SUBSTANCE USE HISTORY: Urine drug screen was positive for amphetamines, benzodiazepines, marijuana. She claims to have used marijuana as teenager and denies use of other illicit drugs. FAMILY PSYCHIATRIC/SUBSTANCE USE HISTORY: She states both her parents are drug addicts. LEGAL HISTORY: None reported SOCIAL HISTORY: She was born and raised in [facility]. Says both her parents are drug addicts. Denies childhood history of abuse. Reports completing 8th grade education. . She is and her has custody of her 3 children. She is unemployed and receives social security disability. MENTAL STATUS EXAM: 37 year old woman. She is well built and appears in good grooming and hygiene. She maintains good eye contact. No abnormal movements noted. Her speech is increased in volume, rate and normal in tone. Her mood is reported as irritable and frustrated about being in the hospital and affect appropriate. She is paranoid about government taking her children away from her and Dr. Caicedo sending police to her home. She denies current auditory or visual hallucinations. Her thought process is tangential with flight of ideas. She is alert and oriented X 4. She denies current suicidal or homicidal ideations. Her insight and judgement are poor. Admitted through ER on petition and cert Second cert was completed today. She has poor insight and judgement and refuses to take medications. She has been aggressive on the unit and gets PRN injectable to medication to control her behaviors. She has responded well to PRN medications and she is less aggressive with medications. Medicine consult to complete initial history and physical exam Routine labs ordered Placed on safety precautions Monitor for symptoms Multidisciplinary team assessments
--- NOTE | 2017-09-28 20:17 | P.MDCNMH ---
History of Present Illness H&P Date: 09/28/17 Chief Complaint: medical management 37-year-old female with no significant past medical history presented to the hospital, seen by police due to acute psychosis patient is accusing people of trying to hurt her she also admits to hearing voices talking about her. She also paranoid regarding her ex- is trying to strike her life. She also admitted to suicidal thoughts where she is hoping that one day she can blow herself up. So she can hurt as much people with her as possible. Then she said just exaggerating I wouldn't do. Patient otherwise denies any medical concerns at this point she denies any headache changes in her vision or hearing denies any chest pain or trouble breathing denies any abdominal pain denies nausea or vomiting denies fevers chills denies any GI bleeding Review of Systems Pertinent positives as noted in HPI. All other systems were reviewed and are negative Past Medical History Past Medical History: Hypertension History of Any Multi-Drug Resistant Organisms: None Reported Additional Past Surgical History / Comment(s): breast implants Past Anesthesia/Blood Transfusion Reactions: No Reported Reaction Past Psychological History: ADD/ADHD, Bipolar Smoking Status: Former smoker Past Alcohol Use History: Unable to Obtain Past Drug Use History: Unable to Obtain - Past Family History Father Family Medical History: No Reported History Mother Family Medical History: No Reported History Brother(s) Family Medical History: No Reported History Sister(s) Family Medical History: No Reported History Medications and Allergies Home Medications Medication Instructions Recorded Confirmed Type Divalproex ER [Depakote ER] 1,000 mg PO HS 30 Days tab.er.24h 06/05/16 Rx ARIPiprazole [Abilify] 10 mg PO HS 09/28/17 09/28/17 History Dextroamphetamine/Amphetamine 30 mg PO BID 09/28/17 09/28/17 History [Adderall] Falmina 1 tab PO DAILY 09/28/17 09/28/17 History Lisinopril [Zestril] 20 mg PO DAILY 09/28/17 09/28/17 History Allergies Allergy/AdvReac Type Severity Reaction Status Date / Time No Known Allergies Allergy Verified 05/31/16 16:40 Physical Exam Vitals: Vital Signs Temp Pulse Pulse Resp BP BP Pulse Ox 09/28/17 09:24 70 20 147/97 09/28/17 08:05 98.0 F 76 20 130/78 99 09/28/17 07:14 74 18 163/85 100 09/28/17 04:40 18 09/28/17 03:45 89 18 133/82 98 09/28/17 03:06 17 09/28/17 01:19 97.4 F L 72 18 139/106 100 Patient refused to have a physical examination Cranial Nerve Examination - Cranial Nerves Cranial Nerve I- Olfactory: Intact (Patient refuses to have physical exam performed, system is forcing me to make a choice on this patient) Cranial Nerve II- Optic: Intact (Again patient refuses physical exam) Cranial Nerve III- Oculomotor: Intact Cranial Nerve IV- Trochlear: Intact Cranial Nerve V- Trigeminal: Intact Cranial Nerve - Abducens: Intact Cranial Nerve VII- Facial: Intact Cranial Nerve VIII- Auditory: Intact Cranial Nerve IX- Glossopharyngeal: Intact Cranial Nerve X- Vagus: Intact Cranial Nerve XI- Accessory: Intact Cranial Nerve XII- Hypoglossal: Intact Results CBC & Chem 7: 09/28/17 00:34 09/28/17 00:34 Labs: Abnormal Lab Results - Last 24 Hours (Table) 09/28/17 09/28/17 09/28/17 Range/Units 00:34 00:34 01:17 Potassium 3.0 L* (3.5-5.1) mmol/L Creatinine 0.50 L (0.52-1.04) mg/dL AST 41 H (14-36) U/L Total Creatine Kinase 403 H (30-135) U/L CK-MB (CK-2) 6.9 H* (0.0-2.4) ng/mL Urine Appearance Turbid H (Clear) Urine Protein 2+ H (Negative) Urine Ketones 1+ H (Negative) Urine Bilirubin 1+ H (Negative) Ur Leukocyte Esterase Moderate H (Negative) Urine WBC 126 H (0-5) /hpf Urine Bacteria Occasional H (None) /hpf Hyaline Casts 146 H (0-2) /lpf Urine Mucus Many H (None) /hpf Ur Amphetamines Screen Detected H (NotDetected) U Benzodiazepines Scrn Detected H (NotDetected) U Marijuana (THC) Screen Detected H (NotDetected) Assessment and Plan Assessment: 37-year-old female presented to the hospital due to acute psychosis and psoas consultative for medical management Plan: Acute psychosis Suicidal ideation Suicide precautions Management per psych #Hypertension Continue with lisinopril #Tobacco smoking Patient counseled to quit Nicotine replacement replacement therapy offered Patient is low risk for DVT as she is ambulatory Thank you for allowing us to participate in the care of this patient. We will follow peripherally. Do not hesitate to contact us with questions. Someone can be reached from the [facility] hospitalist group at all hours of the day at [phone].
[2017-09-29] MEDS: LISINOPRIL 20 MG TAB PO SCH (10:56)
[2017-09-29] MEDS: LORazepam 2 MG/ML INJ IM PRN (11:02)
[2017-09-29] MEDS: ZIPRASIDONE 20 MG VIAL IM PRN (11:03)
--- NOTE | 2017-09-29 20:04 | P.PN ---
Progress Note - Text Progress Note Date: 09/29/17 Patient was sleeping on her bed and refuses to talk stating she wants to rest. She was about to receive PRN injections this morning due to being agitated and banging on the door. She has been loud, disruptive, obnoxious most of the day. She is also hyper verbal with pressured and disorganized speech. She has her hand prints on the priest, windows in her room. 37 year old woman. She is well built and appears in good grooming and hygiene. She was lying on her bed refuses to talk stating she wants to rest and does not want to be disturbed. She has poor insight and judgement and refuses to take medications. Monitor for symptoms
[2017-09-30] MEDS: LISINOPRIL 20 MG TAB PO SCH (10:08)
--- NOTE | 2017-09-30 16:11 | P.PN ---
Subjective Progress Note Date: 09/30/17 Principal diagnosis: Bipolar disorder current episode manic with psychotic features, poor compliance with medication I reviewed the medical record, interviewed the patient and discuss her treatment and treatment plan during team meeting. The patient is a 49-year-old female with a well-established diagnosis of bipolar disorder. She has had multiple psychiatric hospitalizations and, according to the [facility] logistics service representative, was on a one year order for outpatient treatment. In July 2017 upon the recommendations of her [facility] treatment team the insurance follow up specialist dismissed her order. After the transition advisor dismissed her involuntary treatment order she has not kept her outpatient appointments at [facility] and has not responded when the community team visit her at home. She presented to unit involuntarily. She is restless, hyperactive, paranoid, angry and impulsive. She required 20 mg of Geodon IM on 09/01/2017 for agitation and disruptive behavior. In therapeutic groups and activities she is hyper properly, aggressive, intrusive, hostile and restless. She slept only 4 hours last night. Objective - Vital Signs Vital signs: Vital Signs Temp 98.0 F 09/28/17 08:05 Pulse 70 09/28/17 09:24 Resp 20 09/28/17 09:24 BP 147/97 09/28/17 09:24 Pulse Ox 99 09/28/17 08:05 Intake & Output 09/29/17 09/30/17 09/30/17 18:59 06:59 18:59 Weight 81.4 kg - Psychiatric Psychiatric Comment(s): She presented as a casually dressed and casually groomed 37-year-old female with bright blonde hair. She made eye contact and appeared to attend to the interview. She was restless, angry and paranoid. She was hyperverbal and her speech was loud. Her affect was angry and paranoid. She denied homicidal or suicidal ideation. She did not express ideas reference or clear delusional thoughts. Her thinking was abstract and associations were coherent and logical. She denied hallucinations and did not appear to be responding to internal stimuli. - Labs CBC & Chem 7: 09/28/17 00:34 09/28/17 00:34 Assessment and Plan Assessment: She is a 37-year-old female who presented to unit with signs and symptoms of acute marquita. She has a well-established diagnosis of bipolar disorder has been noncompliant with treatment. (1) Bipolar I disorder, most recent episode manic, severe without psychotic features Current Visit: Yes Status: Acute Priority: High Code(s): F31.13 - BIPOLAR DISORD, CRNT EPSD MANIC W/O PSYCH FEATURES, SEVERE SNOMED Code(s): 409160 (2) Poor compliance Current Visit: Yes Status: Chronic Priority: High Code(s): Z91.19 - PATIENT'S NONCOMPLIANCE W OTH MEDICAL TREATMENT AND REGIMEN SNOMED Code(s): 540856927 (3) Involuntary commitment Current Visit: Yes Status: Acute Priority: Medium Code(s): Z04.6 - ENCNTR FOR GENERAL PSYCHIATRIC EXAM, REQUESTED BY AUTHORITY SNOMED Code(s): 373640472 Plan: Continue inpatient hospitalization. Continue safety precautions. They have probate hearing pending. Continue Geodon 20 mg IM twice a day when necessary for agitation or aggressive behavior. Continue lorazepam 1 mg IM/by mouth for agitation or anxiety. Continue discussion to resume her or outpatient medications Abilify and Depakote. Encourage participation in therapeutic groups and activities. Evaluate clinical status response to treatment daily basis.
[2017-10-01] MEDS: LISINOPRIL 20 MG TAB PO SCH (10:06)
--- NOTE | 2017-10-01 14:17 | P.PN ---
Subjective Progress Note Date: 10/01/17 Principal diagnosis: Bipolar disorder current episode manic with psychotic features, poor compliance with medication I reviewed the medical record, attempted to interview the patient and discuss her treatment and treatment plan during team meeting. She was irritable, sarcastic and condescending. She denied problems or concerns and alleged there is no reason for this hospitalization. She declined to resume her outpatient psychotropic medications-Abilify and Depakote. I obtained a narc care report. She received prescriptions for Adderall from a community doctor in July and August. She remains on a voluntary status pending her probate hearing. She refused to defer the probate hearing. Objective - Vital Signs Vital signs: Vital Signs Temp 98.0 F 09/28/17 08:05 Pulse 70 09/28/17 09:24 Resp 20 09/28/17 09:24 BP 147/97 09/28/17 09:24 Pulse Ox 99 09/28/17 08:05 - Psychiatric Psychiatric Comment(s): She presented as a casually dressed and groomed German[place] appearing female. She made eye contact and appeared to attend to the interview. She had no distinguishing features or prominent physical abnormalities. She had an angry facial expression. She was restless and agitated and is often observed pacing the hallway. Every time I past her on the unit she made a sarcastic comment. Her speech was spontaneous with increased rate. Her affect was irritable, angry and inappropriate. She did not express clear ideas reference, paranoid ideation or delusions. Her thinking abstract and associations were coherent and logical. She did not demonstrate clang associations or neologisms. She did not appear to be responding to internal stimuli. - Labs CBC & Chem 7: 09/28/17 00:34 09/28/17 00:34 Assessment and Plan Assessment: She continues demonstrate signs and symptoms of marquita. She continues to refuse psychotropic medications. She was obtaining prescriptions for Adderall in the community that likely contributed to the manic episode. (1) Bipolar I disorder, most recent episode manic, severe without psychotic features Current Visit: Yes Status: Acute Priority: High Code(s): F31.13 - BIPOLAR DISORD, CRNT EPSD MANIC W/O PSYCH FEATURES, SEVERE SNOMED Code(s): 028881 (2) Poor compliance Current Visit: Yes Status: Chronic Priority: High Code(s): Z91.19 - PATIENT'S NONCOMPLIANCE W OTH MEDICAL TREATMENT AND REGIMEN SNOMED Code(s): 487455951 (3) Involuntary commitment Current Visit: Yes Status: Acute Priority: Medium Code(s): Z04.6 - ENCNTR FOR GENERAL PSYCHIATRIC EXAM, REQUESTED BY AUTHORITY SNOMED Code(s): 354754160 (4) Amphetamine and psychostimulant abuse Current Visit: No Status: Chronic Priority: High Code(s): F15.10 - OTHER STIMULANT ABUSE, UNCOMPLICATED SNOMED Code(s): 636185264 Plan: Continue inpatient hospitalization. Continue safety precautions. Probate hearing pending. Continue Geodon 20 mg IM twice a day when necessary for agitation or aggressive behavior. Continue lorazepam 1 mg IM/by mouth for agitation or anxiety. Continue discussion to resume her or outpatient medications Abilify and Depakote. Encourage participation in therapeutic groups and activities. Evaluate clinical status response to treatment daily basis.
[2017-10-02] MEDS: LISINOPRIL 20 MG TAB PO SCH (09:33)
--- NOTE | 2017-10-02 15:04 | P.PN ---
Subjective Progress Note Date: 10/02/17 Principal diagnosis: Bipolar disorder current episode manic with psychotic features, poor compliance with medication I reviewed the medical record and interviewed the patient. She was irritable, sarcastic and angry in the morning. In the afternoon her affect was brighter and she was more engaging. She denies that she has a mental illness or needs treatment with psychiatric medications. She slept 7 hours last night. She attends some of the therapeutic groups and activities. The therapist described her as hyperverbal, irritable and intrusive. She is refusing lisinopril for the treatment of hypertension. Objective - Vital Signs Vital signs: Vital Signs Temp 98.0 F 09/28/17 08:05 Pulse 70 09/28/17 09:24 Resp 20 09/28/17 09:24 BP 147/97 09/28/17 09:24 Pulse Ox 99 09/28/17 08:05 - Psychiatric Psychiatric Comment(s): She presented as a restless and casually groomed 37-year-old female looked younger than her stated age. She was intermittently irritable, angry and hostile. She made eye contact and appeared to attend to the interview. Her speech was spontaneous with increased rate but normal volume. Her affect was labile at times intense and appropriate. She did not express ideas reference or paranoid ideation. Her thinking was organized and coherent. She did not demonstrate clang associations or neologisms. She did not appear to be responding to internal stimuli. - Labs CBC & Chem 7: 09/28/17 00:34 09/28/17 00:34 Assessment and Plan Assessment: She continues to show signs and symptoms of marquita. She is less persistently irritable and is sleeping most of the night. I suspect that her marked agitation on presentation was due to her use of psychostimulants. (1) Bipolar I disorder, most recent episode manic, severe without psychotic features Current Visit: Yes Status: Acute Priority: High Code(s): F31.13 - BIPOLAR DISORD, CRNT EPSD MANIC W/O PSYCH FEATURES, SEVERE SNOMED Code(s): 274988 (2) Poor compliance Current Visit: Yes Status: Chronic Priority: High Code(s): Z91.19 - PATIENT'S NONCOMPLIANCE W OTH MEDICAL TREATMENT AND REGIMEN SNOMED Code(s): 935550734 (3) Involuntary commitment Current Visit: Yes Status: Acute Priority: Medium Code(s): Z04.6 - ENCNTR FOR GENERAL PSYCHIATRIC EXAM, REQUESTED BY AUTHORITY SNOMED Code(s): 797893342 (4) Amphetamine and psychostimulant abuse Current Visit: No Status: Chronic Priority: High Code(s): F15.10 - OTHER STIMULANT ABUSE, UNCOMPLICATED SNOMED Code(s): 953491095 Plan: Continue inpatient hospitalization. Continue safety precautions. Probate hearing pending. Continue Geodon 20 mg IM twice a day when necessary for agitation or aggressive behavior. Continue lorazepam 1 mg IM/by mouth for agitation or anxiety. Continue discussion to resume her or outpatient medications Abilify and Depakote. Encourage participation in therapeutic groups and activities. Evaluate clinical status response to treatment daily basis.
[2017-10-03] MEDS: LISINOPRIL 20 MG TAB PO SCH (09:21)
--- NOTE | 2017-10-03 16:55 | P.PN ---
Subjective Progress Note Date: 10/03/17 Principal diagnosis: Bipolar disorder current episode manic with psychotic features, poor compliance with medication I reviewed the medical record, interviewed the patient and discussed her treatment and treatment plan during team meeting. She continues to refuse all medications including her antihypertensive. She denies that she requires treatment for mental illness and denies that she has hypertension. She spends most of time in the hallway by the nurses station grooming herself and talking to anyone who passes by. Objective - Vital Signs Vital signs: Vital Signs Temp 98.0 F 09/28/17 08:05 Pulse 70 09/28/17 09:24 Resp 20 09/28/17 09:24 BP 147/97 09/28/17 09:24 Pulse Ox 99 09/28/17 08:05 - Psychiatric Psychiatric Comment(s): She presented as Thelma C dressed and neatly groomed 37-year-old female who was wearing makeup. She was restless, euphoric and hyperverbal. She did not express ideas reference, paranoid ideation or delusional thoughts. Her thinking was abstract and logical. She demonstrated flight of ideas but no clang associations or neologisms. She did not appear to responding to internal stimuli. - Labs CBC & Chem 7: 09/28/17 00:34 09/28/17 00:34 Assessment and Plan Assessment: She is much less irritable, angry and sarcastic. She her mood is elevated and euphoric. She remains manic and the need for treatment with a mood stabilizer. (1) Bipolar I disorder, most recent episode manic, severe without psychotic features Current Visit: Yes Status: Acute Priority: High Code(s): F31.13 - BIPOLAR DISORD, CRNT EPSD MANIC W/O PSYCH FEATURES, SEVERE SNOMED Code(s): 414853 (2) Poor compliance Current Visit: Yes Status: Chronic Priority: High Code(s): Z91.19 - PATIENT'S NONCOMPLIANCE W OTH MEDICAL TREATMENT AND REGIMEN SNOMED Code(s): 578118035 (3) Involuntary commitment Current Visit: Yes Status: Acute Priority: Medium Code(s): Z04.6 - ENCNTR FOR GENERAL PSYCHIATRIC EXAM, REQUESTED BY AUTHORITY SNOMED Code(s): 221062213 (4) Amphetamine and psychostimulant abuse Current Visit: No Status: Chronic Priority: High Code(s): F15.10 - OTHER STIMULANT ABUSE, UNCOMPLICATED SNOMED Code(s): 073346068 Plan: Continue inpatient hospitalization. Continue safety precautions. Probate hearing scheduled for 10/04/2017. Continue Geodon 20 mg IM twice a day when necessary for agitation or aggressive behavior. Continue lorazepam 1 mg IM/by mouth for agitation or anxiety. Continue discussion to resume her or outpatient medications Abilify and Depakote. Encourage participation in therapeutic groups and activities. Evaluate clinical status response to treatment daily basis.
[2017-10-04] MEDS: LISINOPRIL 20 MG TAB PO SCH (08:51)
[2017-10-04] MEDS: ARIPiprazole 5 MG TAB PO SCH (14:02)
--- NOTE | 2017-10-04 17:17 | P.PN ---
Subjective Progress Note Date: 10/04/17 Principal diagnosis: Bipolar disorder current episode manic with psychotic features, poor compliance with medication I reviewed the medical record, interviewed the patient and discussed her treatment and treatment plan during team meeting. She had a probate hearing for involuntary hospitalization and received a 60/90 day involuntary treatment order. When she returned from the record she was angry and accused me of "betraying her". She was restless, hyperactive, intrusive and hyperverbal. She came to my office repeatedly requesting to be discharge. She became frustrated and angry when I wouldn't commit to a discharge date. At one point, she stated her sister wanted me to call and confirm that a discharged on Saturday. I repeatedly told her that she would not be discharge before Saturday. She interpreted this statement to me that she would not remain in the hospital beyond Saturday. We discussed treatment options and she agreed to begin Abilify. She declined my recommendation to begin lithium. We haggled an initial dose of 5 mg daily Objective - Vital Signs Vital signs: Vital Signs Temp 98.0 F 09/28/17 08:05 Pulse 70 09/28/17 09:24 Resp 20 09/28/17 09:24 BP 147/97 09/28/17 09:24 Pulse Ox 99 09/28/17 08:05 - Psychiatric Psychiatric Comment(s): She presented as a neatly groomed and casually dressed 37-year-old woman who was wearing makeup. She made eye contact but did not appear to attend to the interview. She was restless. Her speech was pressured. Her affect was labile , euphoric and irritability. She ruminated about discharge. She did not express ideas reference, paranoid ideation or delusions. Her thinking was abstract and about her thinking was perseverative. She did not express clang associations or neologisms. She did not appear to be responding to internal stimuli. - Labs CBC & Chem 7: 09/28/17 00:34 09/28/17 00:34 Assessment and Plan Assessment: She remains manic, received an involuntary treatment order and agreed to begin psychotropic medications. (1) Bipolar I disorder, most recent episode manic, severe without psychotic features Current Visit: Yes Status: Acute Priority: High Code(s): F31.13 - BIPOLAR DISORD, CRNT EPSD MANIC W/O PSYCH FEATURES, SEVERE SNOMED Code(s): 371988 (2) Poor compliance Current Visit: Yes Status: Chronic Priority: High Code(s): Z91.19 - PATIENT'S NONCOMPLIANCE W OTH MEDICAL TREATMENT AND REGIMEN SNOMED Code(s): 641455945 (3) Involuntary commitment Current Visit: Yes Status: Acute Priority: Medium Code(s): Z04.6 - ENCNTR FOR GENERAL PSYCHIATRIC EXAM, REQUESTED BY AUTHORITY SNOMED Code(s): 251248665 (4) Amphetamine and psychostimulant abuse Current Visit: No Status: Chronic Priority: High Code(s): F15.10 - OTHER STIMULANT ABUSE, UNCOMPLICATED SNOMED Code(s): 186295159 Plan: Continue inpatient hospitalization. Continue safety precautions. Continue Geodon 20 mg IM twice a day when necessary for agitation or aggressive behavior. Continue lorazepam 1 mg IM/by mouth for agitation or anxiety. Begin Depakote 5 mg daily and titrated according to clinical response and tolerance. Encourage participation in therapeutic groups and activities. Evaluate clinical status response to treatment daily basis.
[2017-10-05] MEDS: LISINOPRIL 20 MG TAB PO SCH (09:00)
[2017-10-05] MEDS: ARIPiprazole 5 MG TAB PO SCH (09:00)
--- NOTE | 2017-10-05 19:37 | PN ---
PROGRESS NOTE DATE OF SERVICE: 10/05/2017. CHIEF COMPLAINT: The patient had disorganized behavior. She was texting messages about demons. She was agitated and unable to cooperate with an evaluation. She was admitted on petition for involuntary hospitalization. INTERVAL HISTORY: Patient has been doing fair. She has had considerable ups and downs in her mood. She has periods where she can be calm. She will be out on the unit. She will interact appropriately. At other times, she gets quite distressed and disorganized. It is noted that last evening at 4:30 pm a nursing note indicated that she came to the desk indicating that a patient had been swearing at her and calling her names. The patient herself then proceeded to call other patients on the unit by disrespectful names and stating that she should not be in the hospital. She acknowledged that in fact she had spit on the patient, who had called her name. In group activities, her behavior has been up and down. Yesterday, she did not make much effort to attend group. She was encouraged today. In some of the groups, she was more organized and appropriate in her manner. At times she could get quite intense. In one group it was documented that she had attention seeking behavior and made the statement of "how long do I have to sit here to get credit". It is noteworthy that after I had interviewed her, there was a patient in the day area who was in a very agitated state. The patient talked to that patient having problems giving some reassurance that staff were there to help him and that he should take his medications. She had a very calm manner and was quite supportive and encouraging to the patient. The patient reports that she has not had problems with her medications though she notes that when she was on a higher dose of Abilify it made her excessively sleepy. MENTAL STATUS: Patient gave good eye contact. She had quite animated psychomotor activity. She answered questions with direct responses. At times she would ramble on tangential subjects. At other times, she was more connected to the subject at hand. She was somewhat hyperverbal with pressured speech. Her mood was fluctuating between being calm and then showing some elevated mood with her making sarcastic comments with a broad smile. There was no outward evidence of thought disorder beyond her manic presentation. ASSESSMENT AND PLAN: I will continue the current diagnosis and treatment plan. We will continue to engage the patient in individual and group therapeutic activities. I discussed medications with the patient and suggested that her current dose of Abilify may not be sufficient to fully stabilize her bipolar disorder. At this point, the patient was comfortable with her current dose, feeling that it was helping her. It is noteworthy that I reviewed the history with the patient. I refer the reader to my progress note from a previous admission with a note dated November 13, 2015 for details. The progress note was also a letter to the court regarding her long-term history of relapsing bipolar disorder. I discussed that my understanding is the best she has done was during this past when she was placed on a 1 year treatment order, which was the first time the patient had been on 1 year treatment order. Prior to that she had been on 3 months treatment orders which typically failed because as soon as the order , she would relapse very quickly. I do not have information at this time regarding her medications during that period of time, though it is noted that she has had a number of psychiatric admissions and only returns at this time since her treatment order has . We will continue to focus on stabilization and discharge planning. I reviewed the medical records and reviewed progress with staff. The patient was interviewed. JAMES / SHAHLA: [id number] /
[2017-10-06] MEDS: ARIPiprazole 5 MG TAB PO SCH (08:46)
[2017-10-06] MEDS: LISINOPRIL 20 MG TAB PO SCH (08:48)
--- NOTE | 2017-10-06 18:26 | PN ---
PROGRESS NOTE DATE OF SERVICE: 10/06/2017. CHIEF COMPLAINT: The patient had disorganized behavior. She was texting messages about demons. She was agitated and unable to cooperate with an evaluation. She was admitted on petition for involuntary hospitalization. INTERVAL HISTORY: The patient has been doing fairly well. She had a quiet evening last night. She slept well. Today she has been up. She comes out in the day area. She will interact with others. She has been attending groups. She has seemed to be fairly comfortable. When she is in groups there are times where she can appear "defensive, dramatic, elated and intrusive." She also has been noted to be "appropriate, animated and compliant." Overall she seems to have a more calm manner about her. She was able to discuss discharge planning issues. She is hopeful to be discharged soon. She tolerates her psychotropic medication. MENTAL STATUS: Patient gave good eye contact. Psychomotor activity and speech were normal. Her thoughts were clear. She was spontaneous and interactive. On occasion she would make some sarcastic comments though for the most part her thoughts were on track and appropriate within the conversation. Her affect was a little constricted. Her mood was quiet. She did appear to be anxious, distressed or elevated in mood. There was no clear indication of hypomanic, manic, manic depressive or psychotic symptoms. ASSESSMENT AND PLAN: I will continue the current diagnosis and treatment plan. I will continue psychotropic medications the same. Patient appears to be making good progress. We will continue to focus on stabilization and discharge planning. JAMES / LIVANN: [id number] /
[2017-10-07] MEDS: ARIPiprazole 5 MG TAB PO SCH (09:51)
[2017-10-07] MEDS: LISINOPRIL 20 MG TAB PO SCH (09:52)
--- NOTE | 2017-10-07 12:31 | P.PN ---
Progress Note - Text Progress Note Date: 10/07/17 Interval History: Patient is a 37-year-old female who was admitted and is currently on an involuntary order. Patient had not been taking her outpatient medications of Abilify and Depakote for months. Patient states that she was having side effects from the Depakote and stopped that. Patient denies any racing thoughts and states that she's been sleeping for 12 hours a night. Patient has also been taking amphetamines 30 mg twice a day from her PCP last filled the prescription on September 16. Patient states that she was taking the medications prior to her admission and her UDS was also positive for benzodiazepines and marijuana. Patient denies any racing thoughts and states she is more focused. Mental Status: Appearance/Attitude: Patient is appropriately dressed, makes good eye contact and was cooperative. Behavior: Patient did not exhibit any psychomotor agitation or retardation. Speech/Language: Patient's speech was pressured, normal volume and she was coherent Thought Process: Patient denied racing thoughts, no evidence of loose association or flight of ideas Thought Content: Patient denied any auditory or visual hallucinations no delusions or paranoid ideation were elicited. Patient discussed that she stopped her Depakote due to side effects and states that she had been off of her Abilify for an unknown period of time. Patient states that she is sleeping and eating well. Suicidal/Homicidal Ideation: denies any current suicidal or homicidal ideation Sensorium/Cognition: patient is alert and oriented to person, place, and time and her recent and remote memory are grossly intact. Mood/Affect: patient's mood remains slightly irritable, her affect is appropriate to her mood Insight/Judgment: patient has little insight in the need for medication or her need for treatment, stating that she is ready for discharge Assessment: patient states that she feels she is doing well and ready for discharge and states that she stopped her medication her Depakote due to side effects and it is unclear how long she is been off Abilify. Patient had been on an order as an outpatient which had been discontinued as the patient was doing well. Patient continues to present with slightly pressured speech and little to no insight into the need for medication. Patient's UDS was positive on admission for amphetamines benzodiazepines and marijuana. Patient had been prescribed amphetamines from her primary care physician there is no prescription on maps for benzodiazepines. Patient has been sleeping 6 hours a night she reports that she's been sleeping for 12 hours a night. Patient is currently on an involuntary order. Plan: Patient continues to require hospitalization to further stabilize her mood and her Abilify will be increased to 10 mg a day. Will continue to observe the patient's response to Abilify, no mood stabilizers have been added at this time. Patient has little insight into the need for medication and request that she be discharged.
[2017-10-08] MEDS: ARIPiprazole 10 MG TAB PO SCH (08:38)
[2017-10-08] MEDS: LISINOPRIL 20 MG TAB PO SCH (09:31)
--- NOTE | 2017-10-08 12:03 | P.PN ---
Progress Note - Text Progress Note Date: 10/08/17 Interval History: Patient is a 37-year-old female who was seen today she reports that she slept for 10 hours last night not the sixth that staff reported. She states that she's been attending groups and reported to me that her counselor saw her yesterday and felt she was ready for discharge and also reported that all of the staff here feel she is ready for discharge. Patient states that she has spoken with her psychiatrist at [facility] regarding non- amphetamine based treatments for her ADHD. Patient reported no side effects from her medication. Patient reported that she doesn't understand why she still in the hospital and requested discharge today Mental Status: Appearance/Attitude: Patient is appropriately dressed, makes good eye contact and was cooperative Behavior: Patient did not display any psychomotor agitation or retardation. Speech/Language: Her speech remains slightly pressured of normal volume and she is coherent Thought Process: Patient is goal-directed, no evidence of loose association or flight of ideas Thought Content: Patient denies any auditory or visual hallucinations no delusions or paranoid ideation or elicited. Patient states that she is sleeping and eating well. Patient continues to insist on discharge stating that staff feel she is ready for discharge and that her counselor saw her yesterday and felt she was ready for discharge. Suicidal/Homicidal Ideation: Patient denies any suicidal or homicidal ideation at this time Sensorium/Cognition: Patient is alert and oriented to person, place, and time and recent and remote memory are grossly intact Mood/Affect: Patient's mood is labile, her affect is appropriate to her mood. Patient at times during the interview was smiling and laughing and at other times quite upset and when she left the appointment began sobbing and crying hysterically because she was not being discharged today Insight/Judgment: Patient's insight and judgment are limited Assessment: Patient continues on Abilify which was increased this morning to 10 mg. Patient continues to request discharge stating that she is stable and states that staff and everyone else feels she is ready for discharge. Patient' s mood remains labile and her speech remains slightly pressured. Patient has been sleeping 6 hours a night although she reports that she slept for 10 hours last night. Plan: Patient continue on Abilify 10 mg to target her manic symptoms. Patient and I again discussed the fact that she needs to avoid the use of any amphetamines or other stimulants once she is discharged. Patient continues to require hospitalization to further stabilize her mood and improve her insight into her diagnosis.
[2017-10-08 15:41] VITALS: BMI 27.7
[2017-10-09] MEDS: LISINOPRIL 20 MG TAB PO SCH (08:31)
[2017-10-09] MEDS: ARIPiprazole 10 MG TAB PO SCH (08:31)
[2017-10-09] MEDS ORDERED: ARIPiprazole 400 MG VIAL (NO CHARGE) IM ONE (11:58)
--- NOTE | 2017-10-09 12:10 | P.PN ---
Progress Note - Text Progress Note Date: 10/09/17 Interval History: Patient is a 37-year-old female who was seen this morning and she reports that she slept about 7-1/2 hours last night. She states that she is not feeling sedated on the Abilify and states that she is feeling calm her. She denied having racing thoughts. She states that she feels the medication has been helpful for her. She reports attending groups and activities. Patient reported no side effects from the Abilify. She and I discussed the long -acting injectable Abilify and the patient was agreeable to this. Mental Status: Appearance/Attitude: Patient is appropriately dressed and makes good eye contact and was cooperative. Behavior: Patient did not display any psychomotor agitation or retardation. Speech/Language: Patient's speech is of normal volume and rhythm and spontaneous and she is coherent Thought Process: Patient is goal-directed there is no evidence of loose association or flight of ideas and the patient denies racing thoughts Thought Content: Patient denies any auditory or visual hallucinations no delusions or paranoid ideation were elicited. Patient reports that she is sleeping and eating well. Patient states that her thoughts are much clearer she is not feeling sedated on the Abilify and reported no other complaints of side effects. Patient feels that she is much calmer. Suicidal/Homicidal Ideation: Patient denies any current homicidal or suicidal ideation Sensorium/Cognition: Patient is alert and oriented to person, place, and time and her recent and remote memory are grossly intact Mood/Affect: Patient's mood is less labile and her affect is appropriate. Insight/Judgment: Patient's insight and judgment are improving, patient was able to discuss need for medication and acceptance of long-acting injectable Assessment: Patient is less labile today, her speech is no longer pressured and her understanding of the need for medication has improved. Patient reports no racing thoughts and states that she is feeling calm. She reports that she is sleeping and eating well. Patient has been attending groups and activities and her speech was less pressured in group therapy today. Patient reports no side effects from the Abilify and feels that it has been helpful. She and I had a discussion regarding the use of long-acting injectable Abilify and the patient was agreeable to this. Plan: Patient will continue on Abilify 10 mg by mouth and will be given Abilify Maintenna 400 mg injectable today. Patient and I discussed possible discharge tomorrow and the need to continue with the Abilify orally for a total of 14 days after the injection. Patient was agreeable with the plan and will follow up at [facility] on her discharge.
[2017-10-10] MEDS: ARIPiprazole 10 MG TAB PO SCH (08:38)
[2017-10-10] MEDS: LISINOPRIL 20 MG TAB PO SCH (08:43)
--- NOTE | 2017-10-10 08:55 | P.DS ---
Providers Date of admission: 09/28/17 07:47 Expected date of discharge: 10/10/17 Attending physician: Nasrin White MD Consults: 09/28/17 07:50 Consult Physician Routine Consulting Provider: Caroline Thorne Consult Reason/Comments: H & P Do you want consulting provider notified?: Yes Primary care physician: Stated None Hospital Course: Discharge Diagnosis: Bipolar type I, current episode manic Reason for Admission: Patient is a 37-year-old female who presented to the hospital reporting that she was "doing well and minding my business". She reported that she was not mentally ill and did not need medications. Patient states she was not going to sign any papers and stated that God will take care of her. Patient also reported that she doesn't believe in the [place] marriage system and refused to answer questions regarding her marital status on admission. She denied any auditory or visual hallucinations and reported feeling paranoid but refused to talk about it. She was petitioned by her ex- who reported that she had been noncompliant with medication and was sending him text messages regarding demons and if it was okay to while taking a bubble bath. In the emergency room the patient was extremely combative , verbally abusive threatening and spitting on staff. She required restraints and sedation due to her combative and threatening behaviors. Patient also voiced paranoid ideation about the government taking her kids and calling staff demons. Patient was extremely irritable with pressured and tangential speech. Patient had an established history of medication noncompliance and had been treated in the past on outpatient involuntary treatment orders. Patient has multiple psychiatric hospitalization due to a diagnosis of bipolar disorder. Patient is been treated in the past with Invega, Abilify and Depakote. Patient also had been taking amphetamines at a dosage of 60 mg a day prescribed by her PCP in last filled on September 16, patient's UDS on admission was positive for benzodiazepines there were none on the maps program. Hospital Course: Patient was admitted on an involuntary basis, placed on routine observation, routine laboratory studies and a medical consultation were obtained. Patient was also ordered group and activity therapy. Patient had been compliant with medications while on an involuntary treatment order which had been dismissed by the project manager process development in July 2017 upon the recommendations of the [facility] treatment team. The patient at that time stopped attending treatment appointments as well as stopped taking her medication. Patient initially required IM medication due to agitated disruptive behavior on the inpatient unit. Patient initially refused oral medications, remained irritable, hyperactive intrusive and hyperverbal on the unit. On October 04 the patient at her hearing for an involuntary hospitalization and received a treatment order. That time the patient was begun on Abilify 5 mg daily to target her bipolar symptoms. Patient refused lithium and refused to restart Depakote. Patient was compliant with the Abilify 5 mg and the dose was increased to 10 mg daily. Patient continued to exhibit measured speech, labile mood requesting discharge on each interview, stating that staff felt she was ready to leave as did the staff at [facility]. Patient showed continued response to the Abilify with a decrease in her pressured speech, improvement in her sleep at night, less irritable and her mood stabilized. Patient and I discussed long- acting injectable Abilify and the patient was agreeable to this and was given 400 mg on October 09. Patient continued on Abilify 10 mg orally. Patient attended groups and activities on the unit, she was no longer exhibiting any agitated, labile behavior, her speech was not pressured and she was not exhibiting any paranoid or delusional ideation. Patient was sleeping and eating well. Patient reported no side effects from the medication. Patient and I also had a long discussion about not restarting any stimulant medication once she is discharged, I discussed with the patient her diagnosis of bipolar disorder, poor concentration and focus can be secondary to this diagnosis and to not restart her amphetamines once she is discharged. Allergies No Known Allergies Allergy (Verified 10/06/17 21:29) Laboratory Last Values WBC 4.2 k/uL (3.8-10.6) 09/28/17 00:34 RBC 4.57 m/uL (3.80-5.40) 09/28/17 00:34 Hgb 12.9 gm/dL (11.4-16.0) 09/28/17 00:34 Hct 38.1 % (34.0-46.0) 09/28/17 00:34 MCV 83.4 fL (80.0-100.0) 09/28/17 00:34 MCH 28.2 pg (25.0-35.0) 09/28/17 00:34 MCHC 33.9 g/dL (31.0-37.0) 09/28/17 00:34 RDW 14.3 % (11.5-15.5) 09/28/17 00:34 Plt Count 235 k/uL (150-450) 09/28/17 00:34 Neutrophils % 60 % 09/28/17 00:34 Lymphocytes % 30 % 09/28/17 00:34 Monocytes % 7 % 09/28/17 00:34 Eosinophils % 1 % 09/28/17 00:34 Basophils % 0 % 09/28/17 00:34 Neutrophils # 2.5 k/uL (1.3-7.7) 09/28/17 00:34 Lymphocytes # 1.3 k/uL (1.0-4.8) 09/28/17 00:34 Monocytes # 0.3 k/uL (0-1.0) 09/28/17 00:34 Eosinophils # 0.0 k/uL (0-0.7) 09/28/17 00:34 Basophils # 0.0 k/uL (0-0.2) 09/28/17 00:34 Sodium 140 mmol/L (137-145) 09/28/17 00:34 Potassium 3.0 mmol/L (3.5-5.1) L* 09/28/17 00:34 Chloride 104 mmol/L (98-107) 09/28/17 00:34 Carbon Dioxide 24 mmol/L (22-30) 09/28/17 00:34 Anion Gap 12 mmol/L 09/28/17 00:34 BUN 12 mg/dL (7-17) 09/28/17 00:34 Creatinine 0.50 mg/dL (0.52-1.04) L 09/28/17 00:34 Est GFR (CKD-EPI)AfAm >90 (>60 ml/min/1.73 sqM) 09/28/17 00:34 Est GFR (CKD-EPI)NonAf >90 (>60 ml/min/1.73 sqM) 09/28/17 00:34 Glucose 95 mg/dL (74-99) 09/28/17 00:34 Calcium 9.6 mg/dL (8.4-10.2) 09/28/17 00:34 Total Bilirubin 0.7 mg/dL (0.2-1.3) 09/28/17 00:34 AST 41 U/L (14-36) H 09/28/17 00:34 ALT 41 U/L (9-52) 09/28/17 00:34 Alkaline Phosphatase 48 U/L (38-126) 09/28/17 00:34 Total Creatine Kinase 403 U/L (30-135) H 09/28/17 00:34 CK-MB (CK-2) 6.9 ng/mL (0.0-2.4) H* 09/28/17 00:34 CK-MB (CK-2) Rel Index 1.7 09/28/17 00:34 Total Protein 7.0 g/dL (6.3-8.2) 09/28/17 00:34 Albumin 4.2 g/dL (3.5-5.0) 09/28/17 00:34 Urine Color Dark Yellow 09/28/17 01:17 Urine Appearance Turbid (Clear) H 09/28/17 01:17 Urine pH 6.0 (5.0-8.0) 09/28/17 01:17 Ur Specific [place] 1.028 (1.001-1.035) 09/28/17 01:17 Urine Protein 2+ (Negative) H 09/28/17 01:17 Urine Glucose (UA) Negative (Negative) 09/28/17 01:17 Urine Ketones 1+ (Negative) H 09/28/17 01:17 Urine Blood Negative (Negative) 09/28/17 01:17 Urine Nitrite Negative (Negative) 09/28/17 01:17 Urine Bilirubin 1+ (Negative) H 09/28/17 01:17 Urine Urobilinogen 4.0 mg/dL (<2.0) 09/28/17 01:17 Ur Leukocyte Esterase Moderate (Negative) H 09/28/17 01:17 Urine RBC 2 /hpf (0-5) 09/28/17 01:17 Urine WBC 126 /hpf (0-5) H 09/28/17 01:17 Urine Bacteria Occasional /hpf (None) H 09/28/17 01:17 Hyaline Casts 146 /lpf (0-2) H 09/28/17 01:17 Urine Mucus Many /hpf (None) H 09/28/17 01:17 Urine HCG, Qual Not Detected (Not Detectd) 09/28/17 01:17 Salicylates <1.0 mg/dL 09/28/17 00:34 Urine Opiates Screen Not Detected (NotDetected) 09/28/17 01:17 Ur Oxycodone Screen Not Detected (NotDetected) 09/28/17 01:17 Urine Methadone Screen Not Detected (NotDetected) 09/28/17 01:17 Ur Propoxyphene Screen Not Detected (NotDetected) 09/28/17 01:17 Acetaminophen <10.0 ug/mL 09/28/17 00:34 Ur Barbiturates Screen Not Detected (NotDetected) 09/28/17 01:17 Valproic Acid <10.0 ug/mL 09/28/17 00:34 U Tricyclic Antidepress Not Detected (NotDetected) 09/28/17 01:17 Ur Phencyclidine Scrn Not Detected (NotDetected) 09/28/17 01:17 Ur Amphetamines Screen Detected (NotDetected) H 09/28/17 01:17 U Methamphetamines Scrn Not Detected (NotDetected) 09/28/17 01:17 U Benzodiazepines Scrn Detected (NotDetected) H 09/28/17 01:17 Urine Cocaine Screen Not Detected (NotDetected) 09/28/17 01:17 U Marijuana (THC) Screen Detected (NotDetected) H 09/28/17 01:17 Serum Alcohol <10 mg/dL 09/28/17 00:34 Discharge Mental Status: Appearance/Attitude: Patient is appropriately dressed, made good eye contact and was cooperative. Behavior: Patient did not exhibit any psychomotor agitation or retardation, patient was able to sit quietly during the interview. Speech/Language: Patient's speech was spontaneous and normal volume and rhythm and she was coherent. Thought Process: Patient was goal-directed there was no evidence of loose association or flight of ideas Thought Content: Patient denied any auditory or visual hallucinations and no delusions or paranoid ideation were elicited. Patient denied that she was having any racing thoughts and stated that she was feeling more in control. She reported that her thinking was much clearer and she was not feeling overly sedated on the medication during the day. She reported that she was sleeping well at night and feeling rested in the morning and her appetite had improved. Suicidal/Homicidal Ideation: Patient denied any current suicidal or homicidal ideation. Sensorium/Cognition: Patient was alert and oriented to person, place, and time and her recent and remote memory were grossly intact. Patient reports that her focus and concentration had improved Mood/Affect: Patient's mood was stable she was euthymic and her affect was appropriate Insight/Judgment: Patient's insight and judgment were improving, she was able to discuss the need for medication and the beneficial response Risk Assessment: Patient's risk for readmission is moderate should she become noncompliant with her medication, start the re-use of benzodiazepines or amphetamines. Discharge Plan: Patient will return home and continue on Abilify 10 mg orally for 12 days and then stop. Patient will continue on Abilify Maintenna 400 mg IM the next dose is due on 11/06/2017. Patient will also continue on her lisinopril for her hypertension. Patient denied discussed the fact that she is on a court order for treatment and that she needs to comply with medication and outpatient treatment appointments and she was aware of this. Patient has her first appointment at [facility] tomorrow October 11 at 8:30 in the morning. Patient was encouraged to not restart her amphetamines, avoid the use of any alcohol or other drugs. Patient Condition at Discharge: Stable Plan - Discharge Summary Discharge Rx Participant: No New Discharge Prescriptions: New ARIPiprazole IM [Abilify Maintena] 400 mg IM QMONTH #1 vial Continue Falmina 1 tab PO DAILY ARIPiprazole [Abilify] 10 mg PO HS #12 tab Lisinopril [Zestril] 20 mg PO DAILY #28 tab Discontinued Divalproex ER [Depakote ER] 1,000 mg PO HS 30 Days tab.er.24h Dextroamphetamine/Amphetamine [Adderall] 30 mg PO BID Discharge Medication List Falmina 1 tab PO DAILY 09/28/17 [History] ARIPiprazole IM [Abilify Maintena] 400 mg IM QMONTH #1 vial 10/10/17 [Rx] ARIPiprazole [Abilify] 10 mg PO HS #12 tab 10/10/17 [Rx] Lisinopril [Zestril] 20 mg PO DAILY #28 tab 10/10/17 [Rx] Follow up Appointment(s)/Referral(s): [facility] [Outside] - 10/11/17 8:30 am (10-11-17 @ [address] Mendoza 10-14-17 @ 3:45 with Melissa Rae ) None,Stated [Primary Care Provider] - 1-2 days Discharge Disposition: HOME SELF-CARE
== END 2017-10-10 10:37 | disposition home or self-care (01) | DRG 885 ==
LOC: EC 22:50 → 3MHU 09-28 07:47
PROVIDERS: ADMIT Psychiatry & Neurology Psychiatry; ATTEND Psychiatry & Neurology Psychiatry
DX: F31.2 Bipolar disorder, current episode manic severe with psychotic features (principal); I10 Essential (primary) hypertension; F15.10 Other stimulant abuse, uncomplicated; Z78.1 Physical restraint status; Z79.899 Other long term (current) drug therapy; Z87.891 Personal history of nicotine dependence; Z91.14 Patient's other noncompliance with medication regimen; Z91.19 Patient's noncompliance with other medical treatment and regimen; Z98.82 Breast implant status
CPT/HCPCS: 36415; 80053; 80164; 80306; 80320; 81001; 81025; 82550; 82553; 83520; 85025; 96372; 99285

== ENCOUNTER 2017-10-16 18:58 | Inpatient (IN) | payer BC, MEDICAID ==
--- NOTE | 2017-10-16 19:55 | ED ---
Psych HPI - General Chief Complaint: Psychiatric Symptoms Stated Complaint: Mental Health Time Seen by Provider: 10/16/17 19:27 Source: patient, RN notes reviewed, old records reviewed Mode of arrival: ambulatory - History of Present Illness Initial Comments: Patient is a 37-year-old female with history of bipolar psychosis disorder presents emergency department with police for a pickup order. They were intended to pick the Patient up for further evaluation and psychiatric treatment. Patient then reported that she was suicidal and was brought here for evaluation. Patient that she's been taking her medication. She does not know when she was brought here, she denies suicidal thoughts. Patient is very upset at being treated patiently multiple times and states that her family is being taken away from her. Apparently [facility] was to see her today. - Related Data Home Medications Medication Instructions Recorded Confirmed Dextroamphetamine/Amphetamine 30 mg PO BID 10/16/17 10/16/17 [Adderall] Lisinopril [Prinivil] 20 mg PO DAILY 10/16/17 10/16/17 Previous Rx's Medication Instructions Recorded ARIPiprazole IM [Abilify Maintena] 400 mg IM QMONTH #1 vial 10/10/17 ARIPiprazole [Abilify] 10 mg PO HS #12 tab 10/10/17 Allergies Allergy/AdvReac Type Severity Reaction Status Date / Time No Known Allergies Allergy Verified 10/16/17 20:10 Review of Systems ROS Statement: Those systems with pertinent positive or pertinent negative responses have been documented in the HPI. ROS Other: All systems not noted in ROS Statement are negative. Past Medical History Past Medical History: Hypertension History of Any Multi-Drug Resistant Organisms: None Reported Additional Past Surgical History / Comment(s): breast implants Past Anesthesia/Blood Transfusion Reactions: No Reported Reaction Past Psychological History: ADD/ADHD, Bipolar Smoking Status: Former smoker Past Alcohol Use History: None Reported Past Drug Use History: Marijuana - Past Family History Father Family Medical History: No Reported History Mother Family Medical History: No Reported History Brother(s) Family Medical History: No Reported History Sister(s) Family Medical History: No Reported History General Exam - General Exam Comments Initial Comments: 37-year-old female. Alert and oriented. Patient is verbally abusive. Limitations: no limitations Head exam: Present: atraumatic, normocephalic, normal inspection Eye exam: Present: normal appearance, PERRL, EOMI. Absent: scleral icterus, conjunctival injection, periorbital swelling ENT exam: Present: normal exam, mucous membranes moist Neck exam: Present: normal inspection. Absent: tenderness, meningismus, lymphadenopathy Respiratory exam: Present: normal lung sounds bilaterally. Absent: respiratory distress, wheezes, rales, rhonchi, stridor Cardiovascular Exam: Present: regular rate, normal rhythm, normal heart sounds. Absent: systolic murmur, diastolic murmur, rubs, gallop, clicks GI/Abdominal exam: Present: soft, normal bowel sounds. Absent: distended, tenderness, guarding, rebound, rigid Extremities exam: Present: normal inspection, full ROM, normal capillary refill. Absent: tenderness, pedal edema, joint swelling, calf tenderness Back exam: Present: normal inspection Neurological exam: Present: alert, oriented X3, CN II-XII intact Psychiatric exam: Present: agitated. Absent: normal affect, normal mood Skin exam: Present: warm, dry, intact, normal color. Absent: rash Medical Decision Making - Medical Decision Making is medical clear for EPS evaluation. They feel the Patient should be admitted for further inpatient psychiatric treatment. Patient's case was transferred time [facility] at 8:54 PM. Disposition Clinical Impression: Bipolar disorder Disposition: ADMITTED IP TO THIS HOSP Condition: Stable Time of Disposition: 20:54
[2017-10-16] MEDS ORDERED: LORazepam 1 MG TAB PO STA (20:52)
[2017-10-16] MEDS ORDERED: LORazepam 2 MG/ML INJ IM STA (20:52)
[2017-10-16] MEDS ORDERED: MAG HYDROX/AL HYDROX/SIMETH 30 ML CUP PO PRN (21:33)
[2017-10-16] MEDS ORDERED: ACETAMINOPHEN TAB 325 MG TAB PO PRN (21:33)
[2017-10-16] MEDS ORDERED: LORazepam 1 MG TAB PO PRN (21:33)
[2017-10-16] MEDS ORDERED: MAGNESIUM HYDROXIDE 2,400 MG/10 ML CUP PO PRN (21:33)
--- NOTE | 2017-10-17 06:58 | P.HPIM ---
History of Present Illness H&P Date: 10/17/17 Chief Complaint: medical management 37-year-old female with history of bipolar disorder. Patient had the wind was being picked up by police however when they found her she claimed that she suicidal bedside she was brought to the hospital for psychiatry treatment and evaluation. Patient claims that she is compliant with her medications. Currently she denies any medical concerns, denies any chest pain or trouble breathing denies any headache changes in vision or hearing denies any focal neurologic deficits denies any abdominal pain nausea or vomiting denies any changes in her bowel habits or urinary habits Review of Systems Pertinent positives as noted in HPI. All other systems were reviewed and are negative Past Medical History Past Medical History: Hypertension History of Any Multi-Drug Resistant Organisms: None Reported Additional Past Surgical History / Comment(s): breast implants Past Anesthesia/Blood Transfusion Reactions: No Reported Reaction Past Psychological History: ADD/ADHD, Bipolar Smoking Status: Former smoker Past Alcohol Use History: None Reported Past Drug Use History: Marijuana - Past Family History Father Family Medical History: No Reported History Mother Family Medical History: No Reported History Brother(s) Family Medical History: No Reported History Sister(s) Family Medical History: No Reported History Medications and Allergies Home Medications Medication Instructions Recorded Confirmed Type ARIPiprazole IM [Abilify Maintena] 400 mg IM QMONTH #1 vial 10/10/17 10/16/17 Rx ARIPiprazole [Abilify] 10 mg PO HS #12 tab 10/10/17 10/16/17 Rx Dextroamphetamine/Amphetamine 30 mg PO BID 10/16/17 10/16/17 History [Adderall] Lisinopril [Prinivil] 20 mg PO DAILY 10/16/17 10/16/17 History Allergies Allergy/AdvReac Type Severity Reaction Status Date / Time No Known Allergies Allergy Verified 10/16/17 20:10 Physical Exam Vitals: Intake and Output 10/16/17 10/16/17 10/17/17 14:59 22:59 06:59 Other: Weight 76.206 kg Constitutional: No acute distress, conversant, pleasant Eyes: Anicteric sclerae, moist conjunctiva, no lid-lag Pupils equal round reactive to light ENMT: NC/AT Oropharynx clear, no erythema, or exudates Neck: Supple, FROM, no masses, or JVD No carotid bruits No thyromegaly Lungs: Clear to auscultation Clear to percussion Normal respiratory effort, no accessory muscle use Cardiovascular: Heart regular in rate and rhythm, No murmurs, gallops, or rubs No peripheral edema Abdominal: Soft Nontender, no guarding, rebound or rigidity Abdomen moving with respiration Normoactive bowel sounds No hepatomegaly, No splenomegaly No palpable mass No abdominal wall hernia noted Skin: Normal temperature, tone, texture, turgor No induration No subcutaneous nodules No rash, lesions No ulcers Extremities: No digital cyanosis No clubbing Pedal pulses intact and symmetrical Radial pulses intact and symmetrical No calf tenderness Psychiatric: Alert and oriented to person, place and time Appropriate affect fair judgement Neuro Muscles Strength 5/5 in all 4 extremities Sensation to light touch grossly present throughout No focal sensory deficits Lymphatics: no palpable cervical or supraclavicular , or inguinal lymph nodes Assessment and Plan Assessment: 37-year-old female with history of bipolar disorder and hypertension brought him to the hospital by police upon pickup order for psychiatric evaluation and treatment due to her claiming suicidal ideation medicine consulted for medical management Plan: Suicidal ideation Bipolar disorder Management per psych Suicide precautions Hypertension Continue lisinopril DVT prophylaxis patient is low risk and ambulatory Follow-up labs Thank you for allowing us to participate in the care of this patient. We will follow peripherally. Do not hesitate to contact us with questions. Someone can be reached from the [facility] hospitalist group at all hours of the day at [phone].
[2017-10-17] MEDS: LISINOPRIL 20 MG TAB PO SCH (08:52)
--- NOTE | 2017-10-17 13:28 | P.HP ---
Psychiatric H&P - . H&P Date: 10/17/17 History & Physical: Allergies Allergy/AdvReac Type Severity Reaction Status Date / Time No Known Allergies Allergy Verified 10/16/17 20:10 Intake & Output 10/16/17 10/17/17 10/17/17 18:59 06:59 18:59 Weight 76.206 kg 10/17/17 13:17 Identification: Patient is a 37-year-old female who was brought in on a pickup order after she did not comply with outpatient treatment. History of Present Illness: Patient was recently discharged from the inpatient psychiatric unit on October 10, she had been given Abilify 10 mg for 12 days after her discharge and had been given and Abilify long-acting injection of 400 mg on the . Patient was told to not restart her Adderall and she states that she restarted her Adderall after discharge. Patient was seen in the interview room and she was extremely irritable, loud and denying that she had not followed up with her outpatient appointments. Patient also stated that it was her god given right and that she did not believe in the Court or the laws of this country. She states that she was told to taper her Adderall and not stop it abruptly. Patient then began accusing me of causing her children distress, depression because she is from them. Patient then accused me of causing her distress, patient stood up and was loud, yelling and threatening. Patient then walked out of the interview room. Past Psychiatric History: Patient was most recently admitted to psychiatric unit in August 2017 and discharged on October 10. Patient was on a court order that expires in December 2017. Patient has a history of multiple psychiatric admissions due to noncompliance. Patient has been on Invega, Abilify Depakote. Past Medical/Surgical History: Hypertension Family History: Unable to obtain as the patient was not cooperative Social History: Unable to obtain as the patient was not cooperative, patient does have 3 daughters and is currently . Patient states that she is a [id number] mom. Substance Use History: Patient did not cooperate with the interview but does have a prescription for Adderall 30 mg tablets which was filled on September 16 with a quantity of 60 and she states that she restarted taking these on discharge. Patient's drug screen on her prior admission was positive for amphetamines, benzodiazepines and marijuana she refused to give a urine specimen at this admission and refuses to respond to questions regarding her drug or alcohol use stating that she restarted her Adderall because she was told to taper it. Legal History: Unknown Mental status: Appearance/Attitude: Patient is dressed in a black skirt and top , she made intermittent eye contact and was not cooperative Behavior: Patient did not exhibit any psychomotor retardation but she was agitated, stood up and was not cooperative during the interview and left the interview room abruptly Speech/Language: Patient's speech is pressured, she is coherent Thought Process: Patient exhibits flight of ideas Thought Content: Patient did not appear to be responding to internal stimuli, patient was extremely irritable during the interview becoming angry and accusing yelling and threatening to me. Patient states that I'm the cause of her children's depression and separation. She stated that she didn't believe in records of the laws of this country and noted there is a road against her. She states that it's her God given right to talk the way she does. Suicidal/Homicidal Ideation: Patient refused to respond to questions Sensorium/Cognition: Patient is alert and oriented to person, place and time and recent and remote memory are grossly intact Mood/Affect: Patient's mood is labile and irritable and her affect is appropriate to her mood Insight/Judgment: Patient's insight and judgment are impaired Intellectual Functioning: Patient's intellectual functioning appears average Strength/Weakness: Patient has a source of financial support housing/lack of compliance with medication and follow-up, use of drugs Assessment: Patient presents after not following up with her outpatient appointments at [facility] and was on a pickup order. Patient is on a court ordered treatment that will in December 2017. Patient was recently discharged from the hospital on October 10 and had been given long-acting injectable Abilify 400 mg on the and was to continue taking Abilify 10 mg for 12 more days. The patient also began using Adderall and her discharge. Patient presents with pressured speech, and threatening accusatory behavior, making statements regarding her not believing in the laws are Court of this country, is her God given right to talk this way, she was refusing laboratory studies, refusing to give a urine specimen. Patient was extremely agitated during our interview and abruptly left the room. Admission Diagnosis: Bipolar disorder type I current episode manic with psychotic features, amphetamine use disorder, moderate Plan: Patient was admitted under a court order for treatment expires in December 2017. Patient was placed on routine observation, Pollo activity therapy were ordered. Patient had a medical consultation and routine laboratory studies ordered. Patient was begun on Abilify 10 mg orally, she received an injection of long-acting Abilify on October 09. Should patient refuse her oral Abilify she will be given an injection of Geodon 20 mg. Patient was encouraged to comply with laboratory studies. Patient requires inpatient treatment to stabilize her mood. 10/17/17 13:26
[2017-10-17] MEDS: ZIPRASIDONE 20 MG VIAL IM PRN (18:50)
[2017-10-17] MEDS: LORazepam 2 MG/ML INJ IM PRN (18:51)
[2017-10-17] MEDS: ARIPiprazole 10 MG TAB PO SCH (20:04)
[2017-10-18] MEDS: LISINOPRIL 20 MG TAB PO SCH ×2 (09:05→21:17)
[2017-10-18] MEDS ORDERED: ZIPRASIDONE 20 MG VIAL IM ONE (10:05)
[2017-10-18] MEDS: ZIPRASIDONE 20 MG VIAL IM PRN (10:06)
[2017-10-18] MEDS: LORazepam 2 MG/ML INJ IM PRN (10:10)
--- NOTE | 2017-10-18 16:01 | P.PN ---
Progress Note - Text Progress Note Date: 10/18/17 Interval History: Patient is a 37-year-old female who was seen in her room. Patient had been sleeping most of the morning secondary to receiving Geodon and Ativan earlier today due to punching staff on the arm as well as being loud, intrusive and not redirectable. Patient states that she feels she is ready for discharge and wants to go home. She states that she doesn't understand why she is being kept against her will, states that she doesn't like me, doesn't like your country, doesn't like the rules here and doesn't want to stay here. She states that she was just being funny, joking around like she does with all her friends when she hit staff on the arm. Patient states that she doesn't understand why she is being held against her will, continues to insist that she kept all of her appointments at [facility] and stated "I wonder if [facility] like my anxiety". Mental Status: Appearance/Attitude: Patient is casually dressed, sitting on a bed in her room, made eye contact was superficially cooperative Behavior: Patient appears slightly sleepy having just awakened, there is no evidence of psychomotor agitation or retardation Speech/Language: Patient's speech is slightly pressured, of normal volume and she is coherent Thought Process: Patient is fixed on her need for not being in the hospital, that she doesn't understand why she is here, her dislike of myself this country and rules Thought Content: Patient does not appear to be responding to internal stimuli, she is not expressing any paranoid ideation. Patient continues to express her dislike of the rules on the unit, her not understanding why she is being held against her will, why she is in the hospital, that everyone is lying about her not following up as an outpatient or taking medication. Suicidal/Homicidal Ideation: Patient is not verbalizing any suicidal or homicidal ideation at this time Sensorium/Cognition: Patient is alert and oriented to person, place, and time and her recent and remote memory are grossly intact Mood/Affect: Patient's mood remains labile, irritable and her affect is appropriate to her mood Insight/Judgment: Patient's insight and judgment are limited regarding the need for treatment and medication and her diagnosis Assessment: Patient remains irritable, hostile at times quite angry yelling and wild on the unit at other times she is intrusive with other patients. At times her behavior with other patients is inappropriate and she is sexually preoccupied. Patient has required IM medication yesterday evening as well as today due to her behavior and inability to follow redirection. Patient continues to voice her wish to be discharged, she cannot understand why she is in the hospital or being held against her will and attempts to inform and educate the patient regarding the process on numerous occasions have failed. Plan: Patient continue on Abilify 10 mg at bedtime, she received a long-acting injectable Abilify on October 09 patient is currently also on a court order for treatment. Patient continues to require hospitalization to further stabilize her mood. I am not considering adding Depakote or lithium to the patient's medication regimen the patient does not practice any control. A consideration for Lamictal to be added to her Abilify is being considered should her mood not stabilize.
[2017-10-18] MEDS: ARIPiprazole 10 MG TAB PO SCH (21:17)
--- NOTE | 2017-10-19 10:40 | P.PN ---
Progress Note - Text Interval history: The patient is found in the hallway she follows me to the library to speak. The patient speaks at length regarding her frustration with our facility the [facility] and [facility]. She states she has been hospitalized 10 times unnecessarily. She states "there is nothing wrong with my mind or anything wrong with my body". She reports that she was placed here for being noncompliant with appointments. Mental status exam: The patient is a female appearing her stated age. She presents with adequate hygiene grooming. Speech is fluent pressured and she is irritable during the interaction. She does demonstrate brief tearfulness when discussing her children. She demonstrates tangential thinking and loose associations. She describes thoughts of persecution. She demonstrates increased psychomotor activity. Insight into her symptoms is poor. She is reporting no suicidal or homicidal thoughts. She endorses no hallucinations. Plan: The patient continues to demonstrate symptoms of marquita and poor insight into those symptoms. Continue medications as written. Historically she stabilizes with medication and with sobriety from stimulants. We will monitor her for safety.
[2017-10-19] MEDS: ARIPiprazole 10 MG TAB PO SCH (20:13)
[2017-10-20] MEDS: LISINOPRIL 20 MG TAB PO SCH (09:19)
--- NOTE | 2017-10-20 13:15 | P.PN ---
Progress Note - Text Interval history: The patient is found in the hallway playing cards with peers. She follows me to the [facility] to speak. She indicates her mood is frustrated as she feels we are keeping her from her family and she has not seen her children in over one month. She indicates she slept 11 hours last night. She has been observed being hyperverbal and loud in the hallway. Staff report that yesterday she had exposed herself to male peers. The patient states that she does not agree with the use of medication and would like it stopped but she has been complying with the Abilify. Mental status exam: The patient is alert she is dressed in her own clothing she is wearing makeup. Eye contact is appropriate. She made an effort to control her behavior and reactions during our interaction. She frequently use sarcasm. She described an irritable mood. Thought process could be linear briefly and then she would become tangential at times. She is endorsing no auditory or visual hallucinations she is endorsing no specific delusions although she feels persecuted in that she is here in the hospital. She demonstrated no verbal or physical aggressiveness. Insight and judgment are impaired. She is oriented to person place and date. She demonstrates no abnormal involuntary movements. Affect demonstrates lability. Plan: The patient will continue on her current psychotropic medication. Consider titrating the oral Abilify further. We will monitor for safety and encourage her full participation in the milieu. Reality orientation is provided.
[2017-10-20] MEDS: ARIPiprazole 10 MG TAB PO SCH (20:44)
[2017-10-21] MEDS: LISINOPRIL 20 MG TAB PO SCH (09:17)
--- NOTE | 2017-10-21 12:40 | P.PN ---
Progress Note - Text Progress Note Date: 10/21/17 Interval History: Patient is a 37-year-old female who was seen in the library today, she reports that she doesn't have a mental homeless doesn't need medication and wants to be discharged. Patient continues to insist that she was compliant with follow-up care, and doesn't understand why she was brought back to the hospital. She states that everything is a lie and that she did attend her follow-up appointments. Patient stated that "this is all a flunder" and she doesn't agree with the [place] system. Patient states that she is ready to leave because she hasn't been home, she loves her truck and doesn't know where it is, because her excellent letter talk to her daughter's. Mental Status: Appearance/Attitude: Patient is casually dressed, wearing makeup , makes eye contact and was superficially cooperative Behavior: Patient does not exhibit any psychomotor agitation or retardation however patient is easily irritated Speech/Language: Patient's speech is spontaneous, slightly pressured and she is coherent. Thought Process: Patient continues to be focused on discharge,that she doesn't need medications and doesn't have an illness Thought Content: Patient denies any auditory or visual hallucinations and no paranoid ideation, patient continues to voice that this is all a lie, that she was attending her outpatient follow-up and taking medication and states that she doesn't agree with the [place] system. Patient states that she is ready to leave and needs to speak with her children. Patient is eating and sleeping well. Suicidal/Homicidal Ideation: Patient denies any current suicidal or homicidal ideation Sensorium/Cognition: Patient is alert and oriented to person, place, and time and her recent and remote memory are grossly intact Mood/Affect: Patient's mood remains irritable and labile and her affect is appropriate to her mood Insight/Judgment: Patient's insight and judgment are limited Assessment: Patient continues to remain irritable with a labile mood and at times inappropriate interactions with peers on the unit. Patient continues to voice that she doesn't have a mental homeless doesn't need medication and then states that she followed up with her aftercare appointments and did take her medications after her last discharge. Patient insists that they are lying at [facility] and that she did not have any reason to be picked up and brought back to the hospital. Patient states that she is ready to leave, insisting that she has been here long enough and questioning whether I have the authority to keep her in the hospital. Patient does not understand the court order, states that she doesn't have a mental illness and doesn't know why she is taking medications. Plan: Will increase patient's oral Abilify to 15 mg at bedtime, patient again refused any laboratory studies. Patient continues to require hospitalization to stabilize her mood, as patient has limited insight into her need for treatment and medication. Patient continues on long-acting injectable Abilify.
[2017-10-21] MEDS: ARIPiprazole 15 MG TAB PO SCH (21:06)
[2017-10-22] MEDS: LISINOPRIL 20 MG TAB PO SCH (09:18)
--- NOTE | 2017-10-22 13:03 | P.PN ---
Progress Note - Text Progress Note Date: 10/22/17 Interval History: Patient is a 37-year-old female who was seen in the hallway, she continues to demand discharge stating that she complied with follow-up care , she became increasingly loud and yelling during our interview. She states that she needs to be discharged because her children are suffering, she doesn't agree with the court, she states that she doesn't need to follow-up at [facility]. Mental Status: Appearance/Attitude: Patient is casually dressed, wearing makeup , makes eye contact and is not cooperative during the interview Behavior: Patient does not demonstrate any psychomotor retardation but is easily agitated and becoming quite angry yelling Speech/Language: Patient's speech is pressured, she is coherent Thought Process: Patient is focused on her children, discharged from the hospital, the fact that she doesn't need to be here and that she is here due to people lie. Patient is not redirectable Thought Content: Patient does not appear to be responding to internal stimuli, patient continues to verbalize that she doesn't need to be here, doesn't require medication, doesn't believe in the [place] laws, doesn' t believe that she is under a court order and doesn't care and states that she is not been a follow up with [facility]. Patient continued to become increasingly agitated during the interview beginning to yell stating that I was causing her children suffering, doesn't understand why she is still in the hospital Suicidal/Homicidal Ideation: Patient denies any current suicidal or homicidal ideation Sensorium/Cognition: Patient is alert and oriented to person, place, and time and further cognitive testing was not performed as patient was not cooperative Mood/Affect: Patient's mood remains labile, irritable and her affect is appropriate to her mood Insight/Judgment: Patient's insight and judgment are limited as she continues to state she doesn't know why she is in the hospital, does not require medication Assessment: Patient continues to exhibit manic behavior, with a labile irritable mood becoming increasingly agitated when I speak with her and refused to discharge her. Patient continues to insist she doesn't require medication or to be in here and that I am causing her children suffering and depression. Patient continues to insist that she complied with her outpatient care and does not have any understanding of why she was brought back to the hospital. Patient has been taking her oral medication. Patient remains intrusive and irritable on the unit. Plan: Patient continue on Abilify 15 mg orally, patient does not use any control and refuses to practice any control and so Depakote and lithium will not be begun. Patient has received a long-acting Abilify injection during her last admission a day prior to discharge. We'll continue with the current medications should the patient not show any improvement we'll consider the addition of either Trileptal or Lamictal. Patient continues to require hospitalization to further stabilize her mood.
[2017-10-22] MEDS: ARIPiprazole 15 MG TAB PO SCH (21:23)
[2017-10-23 05:37] LABS: Appearance,Urine Clear (Clear); Bilirubin,Urine Negative (Negative); Blood,Urine Negative (Negative); Color,Urine Light Yellow; Glucose,Urine (UA) Negative (Negative); Ketones,Urine Negative (Negative); Leukocyte Esterase,Urine Negative (Negative); Nitrite,Urine Negative (Negative); PH, Urine 6.5 (5.0-8.0); Protein,Urine Negative (Negative); Specific Gravity,Urine 1.007 (1.001-1.035); Urobilinogen,Urine <2.0 mg/dL (<2.0)
[2017-10-23 06:06] LABS: Amphetamine Screen,Urine Not Detected (NotDetected); Barbiturate Screen,Urine Not Detected (NotDetected); Benzodiazepines Screen,Urine Not Detected (NotDetected); Cocaine Screen,Urine Not Detected (NotDetected); Methadone Screen, Urine Not Detected (NotDetected); Opiate Screen,Urine Not Detected (NotDetected); Oxycodone Screen, Urine Not Detected (NotDetected); Phencyclidine Screen,Urine Not Detected (NotDetected); Tricyclic Antidepressant,Urine Not Detected (NotDetected); Urn Cannabinoid Scrn Not Detected (NotDetected)
[2017-10-23] MEDS: LISINOPRIL 20 MG TAB PO SCH (09:17)
--- NOTE | 2017-10-23 14:17 | P.PN ---
Progress Note - Text Progress Note Date: 10/23/17 Interval History: Patient is a 37-year-old female who was seen today, she requested that she be discharged. Patient was seen in the library and she stated that she was expressing herself yesterday about emotional topics. Patient states that she has been taking her medication and does not see why she can't be discharged. Patient went on to state that she doesn't agree that she needs medication and when I asked her why did she think she's been admitted on numerous occasions and given medication, she caused and stated "protocol". When I asked the patient if she had been diagnosed with bipolar disorder in her understanding of that diagnosis she stated that it was all a misunderstanding when she left the house naked after an argument with her ex-. Patient states that there is nothing wrong with her, she likes the way she is, she is been a good mother and doesn't see the need for medication or the diagnosis. Patient stated that she's been diagnosed with ADHD and again stated she had been prescribed Adderall and even though was instructed on discharge at the last admission to not continue taking it patient restarted it. Patient states that she is doing fine there is no need for her to be in the hospital and then went on to state that she had found out from the court today that they have awarded full custody to her ex-, she stated that she can't wait to see her daughters and when I asked her if she had visitation rights she said no. Mental Status: Appearance/Attitude: Patient is casually dressed in a black skirt and top, makes good eye contact is wearing makeup and is cooperative Behavior: Patient did not exhibit any psychomotor agitation or retardation was able to sit quietly today during the interview Speech/Language: Patient's speech remains slightly pressured, she speaks in a normal volume and rhythm and is coherent Thought Process: Patient will begin responses to question in a goal-directed fashion but becomes tangential and continues to ruminate about her children, the lack of need for hospitalization questioning why she is in the hospital. Thought Content: Patient denied any auditory or visual hallucinations and no paranoid ideation was elicited. Patient was unable to explain to me why she's been admitted and medicated on numerous admissions in the past for only response was "protocol". She continues to voice the opinion that she is not bipolar, does not need medication and does not understand why she is in the hospital, she stated she's been diagnosed and prescribed Adderall for her ADHD. Patient slept 5 hours last night and her appetite is good. Patient was not yelling and screaming today during the interview. Patient also stated that her focus is on protecting her womb because she wants to have more children. She continues to assert that she is a good mother. Suicidal/Homicidal Ideation: Patient denies any current suicidal or homicidal ideation Sensorium/Cognition: Patient is alert and oriented to person, place, and time and her recent and remote memory are grossly intact Mood/Affect: Patient's mood was less labile, less irritable and her affect is appropriate to her mood Insight/Judgment: Patient's insight and judgment are limited, she continues to state she does not need to be in the hospital, does not require medication and does not think that the diagnosis of bipolar disorder is correct and that she has ADHD. Assessment: Patient continues to exhibit no insight into the need for treatment , her diagnosis or her behavior. Patient continues to request discharge and states that she's been taking the medication here and everyone feels she is ready for discharge. Patient today was less labile and was not yelling and screaming during our interaction, she stated she was yelling yesterday because she was emotional and the topic was meaningful to her. Patient slept for 5 hours last night, attend some groups or activities. Plan: Increase the Abilify to 20 mg at bedtime to continue to target her bipolar disorder, patient continues to require hospitalization as she continues to question the need for medication, questions her diagnosis and continues to insist that she is ready for discharge.
[2017-10-24] MEDS: LISINOPRIL 20 MG TAB PO SCH (08:46)
--- NOTE | 2017-10-24 12:04 | P.PN ---
Progress Note - Text Progress Note Date: 10/24/17 Interval History: Patient is a 37-year-old female who was seen in the office today, patient stated that she slept 12 hours last night as documented that she slept about 6. She states she was speaking to child protective services regarding an evaluation meeting with protective services, her ex- and the patient on November 07. Patient stated today that her parenting time has been revoked and the meeting is to discuss this. Patient states that she had some drooling last night while she was sleeping but is not currently experiencing any now. Patient discussed that she is aware that she is on a court order, stated that she understands if she is not compliant she will return to the hospital but continues to argue with why she is here now. She then stated that there was some incident with the pickup truck and I discussed with her that she was described as having sweeping out the back of the truck with a tree branch, the patient laughed and agreed that that may have been an inappropriate action. Patient and I also discussed her use of Adderall and she states that she was aware of my discussion with her last time about why should not be used but did take it when she went home and states that she no longer has any medication at home. Patient didn't feel the medication had been helpful, she has been taking her medication without difficulty. Mental Status: Appearance/Attitude: Patient is appropriately dressed, makes good eye contact wearing makeup and is cooperative Behavior: Patient did not exhibit any psychomotor agitation or retardation. Speech/Language: Patient's speech was much less pressured she was speaking in a normal volume and rhythm and was coherent Thought Process: Patient was more goal-directed and less tangential and there is no evidence of loose association or flight of ideas Thought Content: Patient denied any auditory or visual hallucination and no delusions or paranoid ideation were elicited. Patient was more appropriately discussing her treatment and the need for medication as well as her understanding that she should not restart the Adderall. Patient stated she was sleeping and eating well. Patient reported some drooling last night from the medication. Patient discussed the meeting with child protective services in an appropriate fashion, discussed her wish to see her 3 daughters appropriately and discussed being on a court order and the consequences appropriately. Suicidal/Homicidal Ideation: Patient denied any current suicidal or homicidal ideation Sensorium/Cognition: Patient was alert and oriented to person, place, and time and her recent and remote memory are grossly intact. Mood/Affect: Patient's mood is much less irritable, less labile and her affect is appropriate Insight/Judgment: Patient's insight and judgment have improved and that she agrees that she will continue with the medication and treatment Assessment: Patient was less irritable today and less labile and was able to converse with me in a calm voice in a reasonable fashion. Patient discussed her wish to be with her children, the upcoming evaluation with child protective services and was able to discuss these issues appropriately. Patient and I discussed her court order and the need for treatment and she agreed that she would continue in treatment continue with the medication although I suspect her insight remains somewhat limited about the reasons for taking medication and her diagnosis. Patient agreed that she would not restart Adderall and states that she doesn't have any at home. Patient attends some groups and activities. She states that she is sleeping and eating well and had some drooling from the medication. Patient has been on the Abilify injection for now 2 weeks Plan: Patient continue on Abilify 20 mg, patient has now been on Abilify injectable for 2 weeks and she and I discussed possible discharge, patient when she is discharged will only be on the injectable Abilify and will follow up with community mental health.
[2017-10-25] MEDS: LISINOPRIL 20 MG TAB PO SCH (08:43)
--- NOTE | 2017-10-25 09:40 | P.DS ---
Providers Date of admission: 10/16/17 20:51 Expected date of discharge: 10/25/17 Attending physician: Nasrin White MD Consults: 10/16/17 21:33 Consult Physician Routine Consulting Provider: Caroline Thorne Consult Reason/Comments: follow up H & P Do you want consulting provider notified?: Yes Primary care physician: Stated None Hospital Course: Discharge Diagnosis: Bipolar disorder type I, current episode manic with psychotic features; amphetamine use disorder Reason for Admission: Patient is a 37-year-old female who was brought in on a pickup order after she started using adderall again and was found acting strangely in public and the police and mobile crisis unit were called. Patient was recently discharged from the inpatient psychiatric unit on October 10, she had been given Abilify 10 mg for 12 days after her discharge and had been given and Abilify long-acting injection of 400 mg on the . Patient was told to not restart her Adderall and she states that she restarted her Adderall after discharge. Patient was seen in the interview room and she was extremely irritable, loud and denying that she had not followed up with her outpatient appointments. Patient also stated that it was her god given right and that she did not believe in the Court or the laws of this country. She states that she was told to taper her Adderall and not stop it abruptly. Patient then began accusing me of causing her children distress, depression because she is from them. Patient then accused me of causing her distress, patient stood up and was loud, yelling and threatening. Patient then walked out of the interview room. Mental status on Admission: Appearance/Attitude: Patient is dressed in a black skirt and top, she made intermittent eye contact and was not cooperative Behavior: Patient did not exhibit any psychomotor retardation but she was agitated, stood up and was not cooperative during the interview and left the interview room abruptly Speech/Language: Patient's speech is pressured, she is coherent Thought Process: Patient exhibits flight of ideas Thought Content: Patient did not appear to be responding to internal stimuli, patient was extremely irritable during the interview becoming angry and accusing yelling and threatening to me. Patient states that I'm the cause of her children's depression and separation. She stated that she didn't believe in records of the laws of this country and noted there is a road against her. She states that it's her God given right to talk the way she does. Suicidal/Homicidal Ideation: Patient refused to respond to questions Sensorium/Cognition: Patient is alert and oriented to person, place and time and recent and remote memory are grossly intact Mood/Affect: Patient's mood is labile and irritable and her affect is appropriate to her mood Insight/Judgment: Patient's insight and judgment are impaired Hospital Course: Patient was admitted under court-ordered for treatment that expires in December 2017, patient was placed on routine observation in group and activity therapy were ordered. No laboratory studies were obtained as the patient refused any blood work during her hospital stay. Patient had a medical consultation. Patient states that she returned home, he restarted taking Adderall initially telling me that it was because she was told to taper the medication. [facility] had received calls regarding her behavior, when he went to her apartment to do a wellness check on her they found her with her truck parked on the [address] walk in [place] sleeping the back of the truck with a treatment. When the police were trying to speak with her she was not cooperative and handed them a rain poncho and told them it was a body bag. Patient had received long-acting injectable Abilify prior to her discharge but was to continue taking oral Abilify and it is unclear if she was compliant with this or not. Patient was restarted on oral Abilify at 10 mg daily and it was increased to 20 mg to target her manic symptoms. Patient slowly improved on the unit, no longer yelling and screaming, accusing me of hurting her children by not allowing her to see them and was able to discuss her diagnosis and the need for medication. Patient and I also had a discussion regarding her use of Adderall. Patient showed fair insight into the need for medication, the problems with the use of Adderall and her need to be compliant with medication. Patient reported no side effects from the Abilify, was no longer expressing any delusional ideation, and felt ready to return home. Allergies No Known Allergies Allergy (Verified 10/20/17 19:48) Discharge Mental Status: Appearance/Attitude: Patient is appropriately dressed, makes good eye contact and was cooperative. Behavior: Patient did not display any psychomotor agitation or retardation. Speech/Language: Patient's speech was spontaneous of normal volume and rhythm and she was coherent. Thought Process: Patient was goal-directed there is no evidence of loose association or flight of ideas. Thought Content: Patient denied any auditory or visual hallucinations no delusions or paranoid ideation were elicited. Patient was no longer accusing me of ruining her life, causing her children to suffer and was able to have a conversation regarding her diagnosis and appropriate treatment. Patient stated she was sleeping well and felt rested and did not complain of any side effects or sedation during the day. Patient's appetite was good. Patient denied having racing thoughts. Suicidal/Homicidal Ideation: Patient denied any current suicidal or homicidal ideation. Sensorium/Cognition: Patient was alert and oriented to person, place, and time and her recent and remote memory were grossly intact Mood/Affect: Patient's mood was stable and her affect was appropriate Insight/Judgment: Patient was able to discuss her diagnosis and response to medication appropriately, we also discussed her use of Adderall and its detrimental effects and she was able to see the difficulties that it has caused. Patient was also able to appropriately discuss being under a court order and what that meant. Risk Assessment: Patient's risk for readmission is moderate should she return to using Adderall weren't be noncompliant with medication and follow-up appointments. Discharge Plan: Patient will return to live in her own home, she will follow-up at [facility] mental health inpatient at a prescription and states that it is at [facility] for her next injection of Abilify Maintenna 400 mg due on November 06. Patient does not require any oral medication and states that she has sufficient lisinopril at home and no prescriptions will be given. Patient was encouraged and advised to avoid the use of Adderall, not request further prescriptions for this medication and avoid the use of any other drugs or alcohol. Patient was encouraged to be compliant with medication and her follow- up appointments. Patient Condition at Discharge: Stable Plan - Discharge Summary Discharge Rx Participant: No New Discharge Prescriptions: Continue ARIPiprazole IM [Abilify Maintena] 400 mg IM QMONTH #1 vial Lisinopril [Prinivil] 20 mg PO DAILY Discontinued ARIPiprazole [Abilify] 10 mg PO HS #12 tab Dextroamphetamine/Amphetamine [Adderall] 30 mg PO BID Discharge Medication List ARIPiprazole IM [Abilify Maintena] 400 mg IM QMONTH #1 vial 10/10/17 [Rx] Lisinopril [Prinivil] 20 mg PO DAILY 10/16/17 [History] Follow up Appointment(s)/Referral(s): [facility] [Outside] - 10/28/17 10:00 am (October 28 @ 10:00 with Melissa Rae November 07 @ 8:15 with Melissa Rae November 07 @ 12:30 Injection November 07 @ 1:[address] Mendoza) None,Stated [Primary Care Provider] - 1-2 days Discharge Disposition: HOME SELF-CARE
[2017-11-06] MEDS ORDERED: ARIPiprazole 400 MG VIAL (NO CHARGE) IM SCH (09:00)
== END 2017-10-25 10:53 | disposition home or self-care (01) | DRG 885 ==
LOC: EC 18:58 → 3MHU 20:51
PROVIDERS: ADMIT Psychiatry & Neurology Psychiatry; ATTEND Psychiatry & Neurology Psychiatry
DX: F31.2 Bipolar disorder, current episode manic severe with psychotic features (principal); R45.851 Suicidal ideations; F90.9 Attention-deficit hyperactivity disorder, unspecified type; I10 Essential (primary) hypertension; F15.90 Other stimulant use, unspecified, uncomplicated; Z79.899 Other long term (current) drug therapy; Z87.891 Personal history of nicotine dependence; Z91.19 Patient's noncompliance with other medical treatment and regimen; Z98.82 Breast implant status
CPT/HCPCS: 80306; 81003; 81025; 82075; 99285

== ENCOUNTER 2021-06-01 10:51 | Inpatient (IN) | payer MEDICAID, OTHER ==
--- NOTE | 2021-06-01 11:35 | ED ---
General Adult HPI - General Chief complaint: Psychiatric Symptoms Stated complaint: Consulting Practice Manager Order Time Seen by Provider: 06/01/21 10:57 Source: patient, RN notes reviewed Mode of arrival: ambulatory Limitations: no limitations - History of Present Illness Initial comments: This a 41-year-old female presents emergency Department for psychiatric evaluation. Patient is brought uncle for evaluation issues currently manic per report. Patient states that she's not take any current medications she is mostly on blood pressure medication but states that she does not take any. Patient had recent hospitalization at [facility] and states that she was also had some transient. Patient denies being suicidal denies being homicidal. - Related Data Home Medications Medication Instructions Recorded Confirmed No Known Home Medications 06/01/21 06/01/21 Allergies Allergy/AdvReac Type Severity Reaction Status Date / Time No Known Allergies Allergy Verified 06/01/21 12:01 Review of Systems ROS Statement: Those systems with pertinent positive or pertinent negative responses have been documented in the HPI. ROS Other: All systems not noted in ROS Statement are negative. Past Medical History Past Medical History: Hypertension History of Any Multi-Drug Resistant Organisms: None Reported Past Surgical History: No Surgical Hx Reported Additional Past Surgical History / Comment(s): breast implants Past Anesthesia/Blood Transfusion Reactions: No Reported Reaction Past Psychological History: ADD/ADHD, Bipolar Smoking Status: Vaper Past Alcohol Use History: None Reported Past Drug Use History: Marijuana - Past Family History Father Family Medical History: No Reported History Mother Family Medical History: No Reported History Brother(s) Family Medical History: No Reported History Sister(s) Family Medical History: No Reported History General Exam General appearance: alert, in no apparent distress Head exam: Present: atraumatic, normocephalic, normal inspection Eye exam: Present: normal appearance, PERRL, EOMI. Absent: scleral icterus, conjunctival injection, periorbital swelling ENT exam: Present: normal exam, normal oropharynx, mucous membranes moist Neck exam: Present: normal inspection, full ROM. Absent: tenderness, meningismus, lymphadenopathy Respiratory exam: Present: normal lung sounds bilaterally. Absent: respiratory distress, wheezes, rales, rhonchi, stridor Cardiovascular Exam: Present: regular rate, normal rhythm, normal heart sounds. Absent: systolic murmur, diastolic murmur, rubs, gallop, clicks GI/Abdominal exam: Present: soft, normal bowel sounds. Absent: distended, tende rness, guarding, rebound, rigid Psychiatric exam: Present: anxious, manic Skin exam: Present: warm, dry, intact, normal color. Absent: rash Course Vital Signs 06/01/21 06/01/21 10:51 12:10 Temperature 98.2 F Pulse Rate 108 H 81 Respiratory 18 18 Rate Blood Pressure 220/137 158/101 O2 Sat by Pulse 98 100 Oximetry Medical Decision Making - Medical Decision Making Patient evaluated by [facility] and [facility]. Patient will be admitted for psychiatric treatment. Patient is on a court order - Lab Data Lab Results 06/01/21 06/01/21 Range/Units 11:19 11:53 Urine Opiates Screen Not Detected (NotDetected) Ur Oxycodone Screen Not Detected (NotDetected) Urine Methadone Screen Not Detected (NotDetected) Ur Propoxyphene Screen Not Detected (NotDetected) Ur Barbiturates Screen Not Detected (NotDetected) U Tricyclic Antidepress Not Detected (NotDetected) Ur Phencyclidine Scrn Not Detected (NotDetected) Ur Amphetamines Screen Not Detected (NotDetected) U Methamphetamines Scrn Not Detected (NotDetected) U Benzodiazepines Scrn Not Detected (NotDetected) Urine Cocaine Screen Not Detected (NotDetected) U Marijuana (THC) Screen Not Detected (NotDetected) Coronavirus (PCR) Not Detected (Not Detectd) Disposition Clinical Impression: Acute psychosis, Bipolar disorder, Manic behavior Disposition: TRANSFER TO PSYCH HOSP/UNIT Referrals: Antionette Mast MD [Primary Care Provider] - 1-2 days
[2021-06-01 11:43] LABS: Amphetamine Screen,Urine Not Detected (NotDetected); Benzodiazepines Screen,Urine Not Detected (NotDetected); Cocaine Screen,Urine Not Detected (NotDetected); Methadone Screen, Urine Not Detected (NotDetected); Opiate Screen,Urine Not Detected (NotDetected); Phencyclidine Screen,Urine Not Detected (NotDetected); Tricyclic Antidepressant,Urine Not Detected (NotDetected); Urn Cannabinoid Scrn Not Detected (NotDetected)
[2021-06-01 11:44] LABS: Barbiturate Screen,Urine Not Detected (NotDetected); Oxycodone Screen, Urine Not Detected (NotDetected)
[2021-06-01] MEDS ORDERED: HALOPERIDOL LACTATE 5 MG/ML 1 ML VIAL IM PRN (18:18)
[2021-06-01] MEDS ORDERED: LORazepam 1 MG TAB PO PRN (18:18)
[2021-06-01] MEDS ORDERED: MAG HYDROX/AL HYDROX/SIMETH 30 ML CUP PO PRN (18:18)
[2021-06-01] MEDS ORDERED: haloperidoL 5 MG TAB PO PRN (18:25)
[2021-06-01] MEDS ORDERED: LORazepam 2 MG/ML INJ IM PRN (18:26)
[2021-06-01] MEDS ORDERED: traZODone HCL 100 MG TAB PO PRN (18:28)
[2021-06-01] MEDS: amLODIPine 5 MG TAB PO SCH (20:00)
[2021-06-01] MEDS: DIVALPROEX 500 MG TABLET.DR PO SCH (21:45)
[2021-06-01] MEDS: OLANZapine 5 MG TAB PO SCH (21:45)
[2021-06-01] MEDS: NICOTINE 14MG/24HR PATCH TRANSDERM SCH (21:48)
[2021-06-02 07:28] LABS: Basophils % (A) 1 %; Eosinophils # (A) 0.1 k/uL (0-0.7); Eosinophils % (A) 3 %; HCT 38.9 % (34.0-46.0); HGB 12.4 gm/dL (11.4-16.0); Hypochromasia Slight; Lymphocytes # (A) 1.8 k/uL (1.0-4.8); Lymphocytes % (A) 42 %; MCH 26.7 pg (25.0-35.0); MCHC 31.9 g/dL (31.0-37.0); MCV 83.9 fL (80.0-100.0); Mean Platelet Volume 8.8; Monocytes # (A) 0.2 k/uL (0-1.0); Monocytes % (A) 6 %; Neutrophils # (A) 2.1 k/uL (1.3-7.7); Neutrophils % (A) 48 %; Platelet Count 286 k/uL (150-450); RBC 4.64 m/uL (3.80-5.40); RDW 13.1 % (11.5-15.5); WBC 4.4 k/uL (3.8-10.6)
[2021-06-02 07:38] LABS: ALT 15 U/L (4-34); AST 22 U/L (14-36); African American GFR (CKD) >90 (>60 ml/min/1.73 sqM); Albumin 3.8 g/dL (3.5-5.0); Alkaline Phosphatase 66 U/L (38-126); Anion Gap 5 mmol/L; Blood Urea Nitrogen 5 mg/dL (7-17); Carbon Dioxide 29 mmol/L (22-30); Chloride 105 mmol/L (98-107); Glucose 88 mg/dL (74-99); Non-African American GFR(CKD) >90 (>60 ml/min/1.73 sqM); Potassium 4.1 mmol/L (3.5-5.1); Sodium 139 mmol/L (137-145); Total Bilirubin 0.5 mg/dL (0.2-1.3); Total Protein 7.5 g/dL (6.3-8.2)
[2021-06-02] MEDS: OLANZapine 5 MG TAB PO SCH (07:56)
[2021-06-02] MEDS: DIVALPROEX 500 MG TABLET.DR PO SCH (07:56)
[2021-06-02] MEDS: amLODIPine 5 MG TAB PO SCH (07:56)
[2021-06-02] MEDS: NICOTINE 14MG/24HR PATCH TRANSDERM SCH (07:56)
[2021-06-02 09:32] LABS: Valproic Acid (Depakene) 30.7 ug/mL
--- NOTE | 2021-06-02 13:59 | P.HP ---
Psychiatric H&P - . H&P Date: 06/02/21 History & Physical: Allergies Allergy/AdvReac Type Severity Reaction Status Date / Time No Known Allergies Allergy Verified 06/01/21 12:01 Vital Signs Temp 97.5 F L 06/02/21 07:53 Pulse 86 06/02/21 07:53 Resp 16 06/02/21 07:53 BP 136/86 06/02/21 07:53 Pulse Ox 98 06/02/21 07:53 Intake & Output 06/01/21 06/02/21 06/02/21 18:59 06:59 18:59 Weight 89.902 kg Laboratory Last Values WBC 4.4 k/uL (3.8-10.6) 06/02/21 07:15 RBC 4.64 m/uL (3.80-5.40) 06/02/21 07:15 Hgb 12.4 gm/dL (11.4-16.0) 06/02/21 07:15 Hct 38.9 % (34.0-46.0) 06/02/21 07:15 MCV 83.9 fL (80.0-100.0) 06/02/21 07:15 MCH 26.7 pg (25.0-35.0) 06/02/21 07:15 MCHC 31.9 g/dL (31.0-37.0) 06/02/21 07:15 RDW 13.1 % (11.5-15.5) 06/02/21 07:15 Plt Count 286 k/uL (150-450) 06/02/21 07:15 MPV 8.8 06/02/21 07:15 Neutrophils % 48 % 06/02/21 07:15 Lymphocytes % 42 % 06/02/21 07:15 Monocytes % 6 % 06/02/21 07:15 Eosinophils % 3 % 06/02/21 07:15 Basophils % 1 % 06/02/21 07:15 Neutrophils # 2.1 k/uL (1.3-7.7) 06/02/21 07:15 Lymphocytes # 1.8 k/uL (1.0-4.8) 06/02/21 07:15 Monocytes # 0.2 k/uL (0-1.0) 06/02/21 07:15 Eosinophils # 0.1 k/uL (0-0.7) 06/02/21 07:15 Basophils # 0.0 k/uL (0-0.2) 06/02/21 07:15 Hypochromasia Slight 06/02/21 07:15 Sodium 139 mmol/L (137-145) 06/02/21 07:15 Potassium 4.1 mmol/L (3.5-5.1) 06/02/21 07:15 Chloride 105 mmol/L (98-107) 06/02/21 07:15 Carbon Dioxide 29 mmol/L (22-30) 06/02/21 07:15 Anion Gap 5 mmol/L 06/02/21 07:15 BUN 5 mg/dL (7-17) L 06/02/21 07:15 Creatinine 0.51 mg/dL (0.52-1.04) L 06/02/21 07:15 Est GFR (CKD-EPI)AfAm >90 (>60 ml/min/1.73 sqM) 06/02/21 07:15 Est GFR (CKD-EPI)NonAf >90 (>60 ml/min/1.73 sqM) 06/02/21 07:15 Glucose 88 mg/dL (74-99) 06/02/21 07:[address] Glu mg/dL 102 06/02/21 07:15 Hemoglobin A1c 5.2 % (0.0-6.0) 06/02/21 07:15 Calcium 9.0 mg/dL (8.4-10.2) 06/02/21 07:15 Total Bilirubin 0.5 mg/dL (0.2-1.3) 06/02/21 07:15 AST 22 U/L (14-36) 06/02/21 07:15 ALT 15 U/L (4-34) 06/02/21 07:15 Alkaline Phosphatase 66 U/L (38-126) 06/02/21 07:15 Total Protein 7.5 g/dL (6.3-8.2) 06/02/21 07:15 Albumin 3.8 g/dL (3.5-5.0) 06/02/21 07:15 TSH 2.030 mIU/L (0.465-4.680) 06/02/21 07:15 Urine Opiates Screen Not Detected (NotDetected) 06/01/21 11:19 Ur Oxycodone Screen Not Detected (NotDetected) 06/01/21 11:19 Urine Methadone Screen Not Detected (NotDetected) 06/01/21 11:19 Ur Propoxyphene Screen Not Detected (NotDetected) 06/01/21 11:19 Ur Barbiturates Screen Not Detected (NotDetected) 06/01/21 11:19 Valproic Acid 30.7 ug/mL 06/02/21 07:15 U Tricyclic Antidepress Not Detected (NotDetected) 06/01/21 11:19 Ur Phencyclidine Scrn Not Detected (NotDetected) 06/01/21 11:19 Ur Amphetamines Screen Not Detected (NotDetected) 06/01/21 11:19 U Methamphetamines Scrn Not Detected (NotDetected) 06/01/21 11:19 U Benzodiazepines Scrn Not Detected (NotDetected) 06/01/21 11:19 Urine Cocaine Screen Not Detected (NotDetected) 06/01/21 11:19 U Marijuana (THC) Screen Not Detected (NotDetected) 06/01/21 11:19 Coronavirus (PCR) Not Detected (Not Detectd) 06/01/21 11:53 06/02/21 13:50 IDENTIFYING DATA: Patient is a 41-year-old female, currently is , unemployed, lives in an apartment with her 3 kids. HPI: Patient presented to the hospital yesterday on a pickup order for noncompliance. Apparently patient is on a deferral from her last psychiatric hospitalization last month at [facility]. Patient apparently has not been taking medications and not compliant with her follow-up at [facility]. Patient's UDS was negative. Patient was seen on the unit agreeable to speech pathologist assistant. She was denying and minimizing everything on the petition that was stated. Patient claims that she does not feel that she has bipolar disorder and does not need medications however was stating that "I'll just take them so I can go home". She states that she wanted to come to the hospital to get a "independent evaluation" and was minimizing her need for treatment. She claims that they are "fabricating lies about me" and claims that a lot of the evidence is "hearsay". She was rambling and had pressured speech. She had a flight of ideas and was disorganized at times. She is mainly tangential and loose associations. She also was religiously preoccupied. She was demanding discharge. She claims that her sleep has been fair. Has poor insight. Fair appetite. She does not believe that she has bipolar disorder or any other mental health problem. Patient denies any suicidal or homicidal ideations intent or plan. At this time patient denies any auditory or visual hallucinations. She claims that she uses vape products regularly. Denies any other recreational drug use. PAST PSYCHIATRIC HISTORY: Patient has a history of bipolar disorder and anxiety. Patient has been on several different psychiatric medications in the past including Zyprexa, Depakote and also Abilify. Patient used to be on a Abilify Maintenna injection however did not go in for her dose. Patient has been admitted psychiatrically several times, she claims around 16 admissions in the past. Her last psychiatric hospitalization was 1 month ago at [facility]. Patient is supposed to be following up at [facility] however has not gone since 2019. Patient denies any history of suicide attempts in the past. Past Medical History: Hypertension History of Any Multi-Drug Resistant Organisms: None Reported ALLERGIES: as per EMR CHEMICAL DEPENDENCY HISTORY: as per HPI FAMILY PSYCHIATRIC/SUBSTANCE USE HISTORY: She states that her father had some form of mental illness. SOCIAL HISTORY: Patient was born and raised in [place]. She states that she completed up to the eighth grade in school. 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 She states that she has never gone to intermediate however has gone to care home for "trespassing". She apparently has 3 kids at home and lives in an apartment. She is unemployed. She is . MENTAL STATUS EXAM: General Appearance: Patient appears to be stated age is alert, directable at times, argumentative. Patient appears to have fair hygiene and grooming. Behavior: Patient is seated without any agitated behavior. Argumentative at times. Demanding discharge. Speech: Patient's speech is pressured at times. Rambles. Mood/Affect: Patient reports their mood is "fine", affect is congruent and constricted. Suicidality/Homicidality: Patient denies having any homicidal ideation intent or plan. Denies any suicidal ideations intent or plan Perceptions: Patient denies any visual hallucinations and denies any auditory hallucinations Though content/process: Rambles, tangential, loose associations, religiously pre occupied. Flight of ideas. Memory and concentration: AOX3, grossly intact for the purposes of this session. Can spell "WORLD" backwards Judgment and insight: poor STRENGTHS/WEAKNESSES: strength is that patient is resilient. Weakness is that patient has poor judgment and is impulsive INTELLECT: average IMPRESSIONS: Bipolar disorder, current episode manic without psychotic features Anxiety disorder unspecified Noncompliance with medication regimen Nicotine dependence PLAN: -Patient is admitted under involuntary status to [facility]HU for stabilization of psychiatric symptoms and safety. Patient was on a deferral from her previous hospitalization at [facility]. Patient has signed adult voluntary form and medication consent and is placed in patient's chart. -Medications : Will start patient on Abilify by mouth 5 mg daily for mood stabilization/marquita. Plan to increase over the weekend as tolerated. trazodone 50 mg qhs prn for insomnia -Ativan and Haldol PRN for agitation/aggression -Patient was informed of the risks, benefits and side effects of the medication and patient verbally consented to taking the medications. Patient signed med consent form and was placed in chart. -Internal Medicine consult to perform medical evaluation and physical. -NRT - nicotine patch -SW on board for discharge planning. Encourage patient to participate in groups to work on coping skills. Demand for hearing was filed today and will await court hearing date. Patient states that she would be agreeable to take the medications and be transitioned onto long-acting injection and also claims that she would rather sign/consent to the order. will attempt to arrange this with her assistant attorney general next week if possible. 06/02/21 14:41 06/02/21 14:48
[2021-06-02] MEDS: ARIPiprazole 5 MG TAB PO SCH (14:00)
[2021-06-02] MEDS ORDERED: traZODone HCL 50 MG TAB PO PRN (14:48)
[2021-06-02 14:55] LABS: Chol/HDL Ratio 3.83 Ratio; LDL Cholesterol,Calculated 103.7 mg/dL (0.0-131.0); VLDL Calculation 16.04 mg/dL (5.00-40.00)
--- NOTE | 2021-06-02 23:23 | P.CONS ---
History of Present Illness - Reason for Consult Consult date: 06/02/21 Medical management Requesting physician: Dorian Rosen - Chief Complaint Not taking medications - History of Present Illness This is a 41-year-old patient, follows with Dr. Maggie Mast. Patient not taking any medications. She was sent in for a pickup order for noncompliance. She was at have an [facility] hospital last month. Has not been taking her medications and did not follow-up with [facility]. She was reported to have a negative urine drug screen. She feels that she keeps getting petitioned by her ex-. She lives with her daughter and twin sons. Not employed. She is at appetite is fair sleeping well denies any hallucinations. She feels slightly anxious and slightly depressed. Has a good appetite. She thinks [place] be [place] fabricating this. She has a diagnosis of bipolar disorder. No suicidal or homicidal thought processes. Review of systems: GEN.: None EYES: None HEENT: None NECK: None RESPIRATORY: None CARDIOVASCULAR: None GASTROINTESTINAL: None GENITOURINARY: None MUSCULOSKELETAL: None LYMPHATICS: None HEMATOLOGICAL: None PSYCHIATRY: As above NEUROLOGICAL: None Past medical history to include: Bipolar disorder, anxiety disorder Social history: . Not employed. Has a 13-year-old and 10-year-old twins. Does vape. Family history: Unremarkable Physical examination: VITAL SIGNS: 97.5, 86, 16, 136/86, 98% room air GENERAL: 30.6 BMI, comfortable. EYES: Pupils equal. Conjunctiva normal. HEENT: External appearance of nose and ears normal, oral cavity grossly normal. NECK: JVD not raised; masses not palpable. HEART: First and second heart sounds are normal; no edema. LUNGS: Respiratory rate normal; clear to auscultation. ABDOMEN: Soft, nontender, liver spleen not palpable, no masses palpable. PSYCH: Alert and oriented x3; mood and affect normal. MUSCULOSKELETAL:No Clubbing/cyanosis;muscles-grossly intact NEUROLOGICAL: Cranial nerves grossly intact; no facial asymmetry, power and sensation grossly intact. LYMPHATICS: No lymph nodes palpable in the axilla and neck. INVESTIGATIONS, reviewed in the clinical context: White count 4.4 hemoglobin 12.4 platelets 286 potassium 4.1 BUN 5 creatinine 0.5 bun LDL 103 TSH 2.0 Urine drug screen negative Coronavirus [PCR: Not detected Assessment and plan: -Obesity BMI 30.6 Weight loss measures -Recreational nicotine use in the form of vaping Nicotine patch -Bipolar disorder with manic episode as diagnosed by psychiatry Maria Fernanda Vora Ativan, Desyrel -Essential hypertension Amlodipine 5 mg a day Care was discussed the patient. Advised against use of vaping. Follow-up with PCP upon discharge Thank you Dr. Rosen Past Medical History Past Medical History: Hypertension History of Any Multi-Drug Resistant Organisms: None Reported Past Surgical History: No Surgical Hx Reported Additional Past Surgical History / Comment(s): breast implants Past Anesthesia/Blood Transfusion Reactions: No Reported Reaction Past Psychological History: ADD/ADHD, Bipolar Smoking Status: Vaper Past Alcohol Use History: None Reported Past Drug Use History: Marijuana - Past Family History Father Family Medical History: No Reported History Mother Family Medical History: No Reported History Brother(s) Family Medical History: No Reported History Sister(s) Family Medical History: No Reported History Medications and Allergies Home Medications Medication Instructions Recorded Confirmed Type No Known Home Medications 06/01/21 06/01/21 History Allergies Allergy/AdvReac Type Severity Reaction Status Date / Time No Known Allergies Allergy Verified 06/01/21 12:01 Physical Exam Vitals: Vital Signs Temp Pulse Pulse Resp BP BP Pulse Ox 06/02/21 07:53 97.5 F L 86 16 136/86 98 06/01/21 20:46 166/108 06/01/21 18:35 97.9 F 68 18 182/123 06/01/21 12:10 81 18 158/101 100 06/01/21 10:51 98.2 F 108 H 18 220/137 98 Intake and Output 06/01/21 06/02/21 06/02/21 22:59 06:59 14:59 Other: Weight 89.902 kg Results CBC & Chem 7: 06/02/21 07:15 06/02/21 07:15 Labs: Abnormal Lab Results - Last 24 Hours (Table) 06/02/21 Range/Units 07:15 BUN 5 L (7-17) mg/dL Creatinine 0.51 L (0.52-1.04) mg/dL
[2021-06-03] MEDS: amLODIPine 5 MG TAB PO SCH (08:21)
[2021-06-03] MEDS: NICOTINE 14MG/24HR PATCH TRANSDERM SCH (08:21)
[2021-06-03] MEDS: ARIPiprazole 5 MG TAB PO SCH (08:22)
[2021-06-03] MEDS: ACETAMINOPHEN TAB 325 MG TAB PO PRN (11:54)
--- NOTE | 2021-06-03 13:30 | P.PN ---
Progress Note - Text Interval history: Patient was seen and was directable and agreeable to speak with insurance writer. At this time patient denies any suicidal or homicidal ideations intent or plan. Denies any Auditory or visual hallucinations. Patient denies any side effects from the medications and has been compliant with meds. Mental status exam: General Appearance: [Patient appears to be stated age is alert, directable, and cooperative.] Behavior: [No agitated behavior. Patient is calm and directable] Speech: Patient's speech is fluent and nonpressured. Mood/Affect: Mood is "good" affect is congruent and full range Suicidality/Homicidality: Patient denies having any suicidal or homicidal ideation intent or plan. Perceptions: Patient denies any auditory or visual hallucinations. Though content/process: [There is no evidence of any delusional thought content and thought process is linear and goal-directed.] Memory and concentration: AOX3, grossly intact for the purposes of this session Judgment and insight: improving mildly Assessment/Plan: Continue with current diagnosis. Patient continues to meet criteria for inpatient psychiatric admission for symptom stabilization and safety.[Patient will be maintained on current psychotropic medication regimen.] Monitor for medication compliance and for any psychotropic medication side effects. Will continue to monitor ongoing response to treatment. Encouraged participation in milieu.
--- NOTE | 2021-06-03 13:43 | P.PN ---
Progress Note - Text Progress Note Date: 06/03/21 - Chief Complaint Not taking medications This is a 41-year-old patient, follows with Dr. Maggie Mast. Patient not taking any medications. She was sent in for a pickup order for noncompliance. She was at have an [facility] last month. Has not been taking her medications and did not follow-up with [facility]. She was reported to have a negative urine drug screen. She feels that she keeps getting petitioned by her ex-. She lives with h er daughter and twin sons. Not employed. She is at appetite is fair sleeping well denies any hallucinations. She feels slightly anxious and slightly depressed. Has a good appetite. She thinks PEEP be bluff fabricating this. She has a diagnosis of bipolar disorder. No suicidal or homicidal thought processes. Admitted with bipolar disorder with manic episode. June 03: Oral intake fair. Ambulating. Slept okay. Has not had a bowel movement for 2 or 3 days. States finds it difficult to have a BM other than home. She is concerned that her children were currently with her ex-'s parents are being given for and she does not like that. Active Medications Acetaminophen (Acetaminophen Tab 325 Mg Tab) 650 mg PO Q4HR PRN PRN Reason: Pain/Discomfort Last Admin: 06/03/21 11:54 Dose: 650 mg Documented by: Al Hydroxide/Mg Hydroxide (Mag Hydrox/Al Hydrox/Simeth 30 Ml Cup) 30 ml PO Q4HR PRN PRN Reason: GI Upset Amlodipine Besylate (Amlodipine 5 Mg Tab) 5 mg PO DAILY [facility] Last Admin: 06/03/21 08:21 Dose: 5 mg Documented by: Aripiprazole (Aripiprazole 5 Mg Tab) 5 mg PO DAILY [facility] Last Admin: 06/03/21 08:22 Dose: 5 mg Documented by: Haloperidol (Haloperidol 5 Mg Tab) 5 mg PO QID PRN PRN Reason: Agitation or Acute Psychosis Haloperidol Lactate (Haloperidol Lactate 5 Mg/Ml 1 Ml Vial) 5 mg IM QID PRN PRN Reason: Agitation or Acute Psychosis Lorazepam (Lorazepam 1 Mg Tab) 1 mg PO QID PRN PRN Reason: Agitation or Acute Anxiety Lorazepam (Lorazepam 2 Mg/Ml Inj) 1 mg IM QID PRN PRN Reason: Agitation or Acute Anxiety Nicotine (Nicotine 14mg/24hr Patch) 1 patch TRANSDERM DAILY JO Last Admin: 06/03/21 08:21 Dose: 1 patch Documented by: Trazodone HCl (Trazodone Hcl 50 Mg Tab) 50 mg PO HS PRN PRN Reason: Insomnia Past medical history to include: Bipolar disorder, anxiety disorder Social history: . Not employed. Has a 13-year-old and 10-year-old twins. Does vape. Family history: Unremarkable Physical examination: VITAL SIGNS: 98.3, 81, 16, 160/76, 98% room air GENERAL: Sitting up, comfortable. EYES: Pupils equal. Conjunctiva normal. HEENT: External appearance of nose and ears normal, oral cavity grossly normal. NECK: JVD not raised; masses not palpable. HEART: First and second heart sounds are normal; no edema. LUNGS: Respiratory rate normal; clear to auscultation. ABDOMEN: Soft, nontender, liver spleen not palpable, no masses palpable. PSYCH: Alert and oriented x3; mood and affect normal. MUSCULOSKELETAL:No Clubbing/cyanosis;muscles-grossly intact INVESTIGATIONS, reviewed in the clinical context: White count 4.4 hemoglobin 12.4 platelets 286 potassium 4.1 BUN 5 creatinine 0.5 bun LDL 103 TSH 2.0 Urine drug screen negative Coronavirus [PCR: Not detected Assessment and plan: -Obesity BMI 30.6 Weight loss measures -Recreational nicotine use in the form of vaping Nicotine patch -Bipolar disorder with manic episode as diagnosed by psychiatry Maria Fernanda Vora Ativan, Desyrel -Essential hypertension Amlodipine 5 mg a day. Add chlorthalidone Care was discussed the patient. Add chlorthalidone Follow-up with PCP upon discharge Thank you Dr. Rosen
[2021-06-03] MEDS: CHLORTHALIDONE 25 MG TAB PO SCH (16:10)
[2021-06-04] MEDS: NICOTINE 14MG/24HR PATCH TRANSDERM SCH (08:36)
[2021-06-04] MEDS: ARIPiprazole 5 MG TAB PO SCH (08:38)
[2021-06-04] MEDS: amLODIPine 5 MG TAB PO SCH (08:38)
[2021-06-04] MEDS: CHLORTHALIDONE 25 MG TAB PO SCH (08:38)
--- NOTE | 2021-06-04 11:41 | P.PN ---
Progress Note - Text Interval history: Patient was seen in the conference room and was directable and agreeable to speak with administrative underwriter. At this time patient denies any suicidal or homicidal ideations intent or plan. Denies any Auditory or visual hallucinations. Patient denies any side effects from the medications and has been compliant with meds. Mental status exam: General Appearance: [Patient appears to be stated age is alert, directable, and cooperative.] Behavior: [No agitated behavior. Patient is calm and directable] Speech: Patient's speech is fluent and nonpressured. Mood/Affect: Mood is "good", affect is congruent and full range Suicidality/Homicidality: Patient denies having any suicidal or homicidal ideation intent or plan. Perceptions: Patient denies any auditory or visual hallucinations. Though content/process: [There is no evidence of any delusional thought content and thought process is linear and goal-directed.] Memory and concentration: AOX3, grossly intact for the purposes of this session Judgment and insight: improving mildly Assessment/Plan: Continue with current diagnosis. Patient continues to meet criteria for inpatient psychiatric admission for symptom stabilization and safety.[Patient will be maintained on current psychotropic medication regimen.] Monitor for medication compliance and for any psychotropic medication side effects. Will continue to monitor ongoing response to treatment. Encouraged participation in milieu.
[2021-06-04] MEDS: ACETAMINOPHEN TAB 325 MG TAB PO PRN (13:54)
[2021-06-05 07:06] VITALS: RESP 16
[2021-06-05] MEDS: NICOTINE 14MG/24HR PATCH TRANSDERM SCH (08:58)
[2021-06-05] MEDS: amLODIPine 5 MG TAB PO SCH (08:58)
[2021-06-05] MEDS: CHLORTHALIDONE 25 MG TAB PO SCH (08:58)
[2021-06-05] MEDS ORDERED: NICOTINE 21MG/24HR PATCH TRANSDERM SCH (10:00)
[2021-06-05] MEDS: ARIPiprazole 5 MG TAB PO SCH (10:07)
--- NOTE | 2021-06-05 11:11 | P.PN ---
Progress Note - Text Progress Note Date: 06/05/21 Interval History: Patient was seen sitting in a group this morning and was directable and agreea ble to speak with program writer in the office. Patient appears to be fairly calm and cooperative with the program writer today. She states that she's been taking her medications cooperative hold off on the Abilify dose this morning as she wasn't sure if she was getting at the injection. She was agreeable to have it increased to 7.5 mg today. She is also agreeable to take the Abilify Maintenna injection and continue on with treatment. She states that she has not heard about when her criminal attorney was in a calm possibly later on today. She states that she feels that she is ready for discharge soon to go back home to be with her kids. She sounded more future oriented today and was not religiously preoccupied or endorsing any delusions. Not endorsing any paranoia. She states that she's been sleeping well and has been going all the groups. She claims that she has a fair appetite. At this time patient denies any suicidal or homical ideations, intent or plan. Patient denies any auditory, visual halluc inations. Patient denies any side effects from the medications and has been compliant with meds. Mental Status Exam: General Appearance: Patient appears to be stated age is alert, directable at times, more directable today. Patient appears to have fair hygiene and grooming. Behavior: Patient is seated without any agitated behavior. More directable today. Speech: Patient's speech is pressured at times. Rambles. Mood/Affect: Patient reports their mood is "good", affect is congruent Suicidality/Homicidality: Patient denies having any homicidal ideation intent or plan. Denies any suicidal ideations intent or plan Perceptions: Patient denies any visual hallucinations and denies any auditory hallucinations Though content/process: Rambles, improving mildly. More goal-directed. Logical. Focused on discharge. Memory and concentration: AOX3, grossly intact for the purposes of this session Judgment and insight: improving mildly Assessment Bipolar disorder, current episode manic without psychotic features Anxiety disorder unspecified Noncompliance with medication regimen Nicotine dependence Plan: -Patient continues to meet criteria for inpatient psychiatric admission for symptom stabilization and safety. Patient has signed medication consent and was placed in patient's chart. -Medications: Increased Abilify to 7.5 mg daily by mouth for mood stabilization/psychosis. Plan to give Abilify Maintenna 400 mg IM today and observe overnight. Trazodone 50 mg daily at bedtime when necessary for insomnia. -When necessary Ativan and Haldol for agitation/aggression. -NRT - nicotine patch -SW on board for discharge planning. Encouraged the patient to participate in milieu. Currently she is awaiting demand for hearing date and wanted to meet with her criminal attorney to sign the waive and stip and is agreeable to conesnt to the treatment order. likely discharge tomorrow after patient receives her abilify maintenna GOLD.
[2021-06-05] MEDS ORDERED: ARIPiprazole IM SYRINGE 400 MG (NO CHARGE) PHARMACY STOCK IM ONE (11:15)
[2021-06-05] MEDS: ACETAMINOPHEN TAB 325 MG TAB PO PRN (12:36)
[2021-06-05] MEDS ORDERED: ARIPiprazole IM 400 MG VIAL (NO COST) PHARMACY STOCK IM ONE (18:00)
[2021-06-06 06:40] VITALS: BP 154/93; PULSE 105; TEMP 97.9
[2021-06-06] MEDS: CHLORTHALIDONE 25 MG TAB PO SCH (08:42)
[2021-06-06] MEDS: amLODIPine 5 MG TAB PO SCH (08:43)
[2021-06-06] MEDS: ARIPiprazole 5 MG TAB PO SCH (08:43)
--- NOTE | 2021-06-06 09:42 | P.DS ---
Providers Date of admission: 06/01/21 18:11 Expected date of discharge: 06/06/21 Attending physician: Dorian Rosen MD Consults: 06/01/21 18:18 Consult Physician Routine Consulting Provider: Eliezer Schreiber Consult Reason/Comments: history and physical/medical management Do you want consulting provider notified?: Yes Primary care physician: Antionette Mast - Discharge Diagnosis(es) (1) Bipolar disorder, current episode manic without psychotic features Current Visit: Yes Status: Acute (2) Anxiety disorder Current Visit: Yes Status: Acute Priority: High (3) Non compliance w medication regimen Current Visit: Yes Status: Acute Priority: High (4) Nicotine dependence Current Visit: Yes Status: Acute Priority: Low Hospital Course: Admission HPI: Admission note was completed by quality analyst/technical writer "Patient is a 41-year-old female, currently is , unemployed, lives in an apartment with her 3 kids. Patient presented to the hospital yesterday on a pickup order for noncompliance. Apparently patient is on a deferral from her last psychiatric hospitalization last month at [facility]. Patient apparently has not been taking medications and not compliant with her follow-up at [facility]. Patient's UDS was negative. Patient was seen on the unit agreeable to information writer. She was denying and minimizing everything on the petition that was stated. Patient claims that she does not feel that she has bipolar disorder and does not need medications however was stating that "I'll just take them so I can go home". She states that she wanted to come to the hospital to get a "independent evaluation" and was minimizing her need for treatment. She claims that they are "fabricating lies about me" and claims that a lot of the evidence is "hearsay". She was rambling and had pressured speech. She had a flight of ideas and was disorganized at times. She is mainly tangential and loose associations. She also was religiously preoccupied. She was demanding discharge. She claims that her sleep has been fair. Has poor insight. Fair appetite. She does not believe that she has bipolar disorder or any other mental health problem. Patient denies any suicidal or homicidal ideations intent or plan. At this time patient denies any auditory or visual hallucinations. She claims that she uses vape products regularly. Denies any other recreational drug use." Hospital course: Upon admission to the unit patient was admitted involuntarily already on a deferral from a previous hospitalization. Patient ended up meeting with her room clerk on 06/05 and signed a waive and stip endocrine to treatment. Patient got along well with other patients on the unit and followed unit protocol. Patient was compliant with the medications and denied any side effects throughout hospital course. Patient was started on Abilify by mouth and titrated up to dose of 7.5 mg daily for mood stabilization. Due to patient's eye likelihood of noncompliance with treatment, she was transitioned onto Abilify Maintenna and given first dose of 400 mg IM on 06/05 and will be due for her next dose of 400 mg IM on 07/03 and monthly thereafter. Patient spoke of her stressors and engaged in therapy both group and individual. Patient was also seen by medical team for history and physical exam. Throughout the course of the hospitalization patient gradually improved with regards to mood, anxiety, sleep and returned back to their baseline level of functioning. On the day of discharge patient denied any suicidal or homicidal ideations intent or plan denied any auditory or visual hallucinations. Patient endorsed wanting to live for her health and her children. The patient denied any access to guns or weapons. Patient denied any paranoia and did not endorse any delusions. Patient does not have a significant history of substance abuse however was counseled on abstaining from all substances including alcohol and marijuana. Patient was also counseled on the medications and need for regular compliance and was encouraged to follow-up with their outpatient appointment for mental health and also for primary care. Prior to discharge a family meeting will be arranged by social work associate to answer any questions and ensure safety upon discharge. Mental status exam: General Appearance: Patient appears to be stated age is alert, pleasant, and cooperative. Patient is in no acute distress and has improved hygiene and grooming Behavior: Patient is calmly seated without any agitated behavior. Speech: Patient's speech is fluent and nonpressured. Mood/Affect: Patient reports their mood is "better", affect is congruent and euthymic. Suicidality/Homicidality: Patient denies having any suicidal or homicidal ideation intent or plan. Perceptions: Patient denies any auditory or visual hallucinations. Though content/process: There is no evidence of any delusional thought content and thought process is linear and goal-directed. more future oriented Memory and concentration: AOX3, grossly intact for the purposes of this session. Can spell "WORLD" backwards correctly. Judgment and insight: improved with guarded prognosis Impression: Bipolar disorder, manic episode, without psychotic features Anxiety disorder unspecified Noncompliance with medication regimen Nicotine dependence Plan: -Continue with discharge today as patient has improved and stabilized psychiatrically and is not currently an imminent threat to herself and/or others. Patient will remain at chronically elevated risk for harm to self and/or others due to her noncompliance with treatment. -Continue medications: Abilify by mouth 7.5 mg daily for mood stabilization/psychosis. Patient was advised to take this for 13 more days then discontinue. Patient was given Abilify Maintenna injection 400 mg IM on 06/05 and will be due for her next dose of 400 mg IM on 07/03. -Patient was counseled on the need for medication compliance and appropriate follow-up at mental health and also primary care for medical issues. Patient verbalized understanding and agreed. -Social work to arrange for and conduct family meeting to ensure safety upon discharge and answer any questions/concerns. Social work also to arrange for patients follow up appointments with [facility] for psychiatric care along with follow up with primary care provider. -Patient counseled on abstaining from recreational drugs and marijuana and alcohol. Was informed/educated on the adverse effects on their physical and mental health. Patient verbally agreed and understood. -Patient was instructed to return to the hospital or seek immediate medical care if their psychiatric or medical symptoms do worsen or reoccur. Allergies Allergy/AdvReac Type Severity Reaction Status Date / Time No Known Allergies Allergy Verified 06/03/21 18:46 Laboratory Results WBC 4.4 k/uL (3.8-10.6) 06/02/21 07:15 RBC 4.64 m/uL (3.80-5.40) 06/02/21 07:15 Hgb 12.4 gm/dL (11.4-16.0) 06/02/21 07:15 Hct 38.9 % (34.0-46.0) 06/02/21 07:15 MCV 83.9 fL (80.0-100.0) 06/02/21 07:15 MCH 26.7 pg (25.0-35.0) 06/02/21 07:15 MCHC 31.9 g/dL (31.0-37.0) 06/02/21 07:15 RDW 13.1 % (11.5-15.5) 06/02/21 07:15 Plt Count 286 k/uL (150-450) 06/02/21 07:15 MPV 8.8 06/02/21 07:15 Neutrophils % 48 % 06/02/21 07:15 Lymphocytes % 42 % 06/02/21 07:15 Monocytes % 6 % 06/02/21 07:15 Eosinophils % 3 % 06/02/21 07:15 Basophils % 1 % 06/02/21 07:15 Neutrophils # 2.1 k/uL (1.3-7.7) 06/02/21 07:15 Lymphocytes # 1.8 k/uL (1.0-4.8) 06/02/21 07:15 Monocytes # 0.2 k/uL (0-1.0) 06/02/21 07:15 Eosinophils # 0.1 k/uL (0-0.7) 06/02/21 07:15 Basophils # 0.0 k/uL (0-0.2) 06/02/21 07:15 Hypochromasia Slight 06/02/21 07:15 Sodium 139 mmol/L (137-145) 06/02/21 07:15 Potassium 4.1 mmol/L (3.5-5.1) 06/02/21 07:15 Chloride 105 mmol/L (98-107) 06/02/21 07:15 Carbon Dioxide 29 mmol/L (22-30) 06/02/21 07:15 Anion Gap 5 mmol/L 06/02/21 07:15 BUN 5 mg/dL (7-17) L 06/02/21 07:15 Creatinine 0.51 mg/dL (0.52-1.04) L 06/02/21 07:15 Est GFR (CKD-EPI)AfAm >90 (>60 ml/min/1.73 sqM) 06/02/21 07:15 Est GFR (CKD-EPI)NonAf >90 (>60 ml/min/1.73 sqM) 06/02/21 07:15 Glucose 88 mg/dL (74-99) 06/02/21 07:[address] Glu mg/dL 102 06/02/21 07:15 Hemoglobin A1c 5.2 % (0.0-6.0) 06/02/21 07:15 Calcium 9.0 mg/dL (8.4-10.2) 06/02/21 07:15 Total Bilirubin 0.5 mg/dL (0.2-1.3) 06/02/21 07:15 AST 22 U/L (14-36) 06/02/21 07:15 ALT 15 U/L (4-34) 06/02/21 07:15 Alkaline Phosphatase 66 U/L (38-126) 06/02/21 07:15 Total Protein 7.5 g/dL (6.3-8.2) 06/02/21 07:15 Albumin 3.8 g/dL (3.5-5.0) 06/02/21 07:15 Triglycerides 80.20 mg/dL (0.00-149.00) 06/02/21 07:15 Cholesterol 162.00 mg/dL (0.00-200.00) 06/02/21 07:15 LDL Cholesterol, Calc 103.7 mg/dL (0.0-131.0) 06/02/21 07:15 VLDL Cholesterol, Calc 16.04 mg/dL (5.00-40.00) 06/02/21 07:15 HDL Cholesterol 42.30 mg/dL (40.00-60.00) 06/02/21 07:15 Cholesterol/HDL Ratio 3.83 Ratio 06/02/21 07:15 TSH 2.030 mIU/L (0.465-4.680) 06/02/21 07:15 Urine Opiates Screen Not Detected (NotDetected) 06/01/21 11:19 Ur Oxycodone Screen Not Detected (NotDetected) 06/01/21 11:19 Urine Methadone Screen Not Detected (NotDetected) 06/01/21 11:19 Ur Propoxyphene Screen Not Detected (NotDetected) 06/01/21 11:19 Ur Barbiturates Screen Not Detected (NotDetected) 06/01/21 11:19 Valproic Acid 30.7 ug/mL 06/02/21 07:15 U Tricyclic Antidepress Not Detected (NotDetected) 06/01/21 11:19 Ur Phencyclidine Scrn Not Detected (NotDetected) 06/01/21 11:19 Ur Amphetamines Screen Not Detected (NotDetected) 06/01/21 11:19 U Methamphetamines Scrn Not Detected (NotDetected) 06/01/21 11:19 U Benzodiazepines Scrn Not Detected (NotDetected) 06/01/21 11:19 Urine Cocaine Screen Not Detected (NotDetected) 06/01/21 11:19 U Marijuana (THC) Screen Not Detected (NotDetected) 06/01/21 11:19 Coronavirus (PCR) Not Detected (Not Detectd) 06/01/21 11:53 Vital Signs Temp 97.9 F 06/06/21 06:39 Pulse 105 H 06/06/21 06:39 Resp 16 06/05/21 07:05 BP 154/93 06/06/21 06:39 Pulse Ox 97 06/06/21 06:39 Patient Condition at Discharge: Stable Plan - Discharge Summary Discharge Rx Participant: No New Discharge Prescriptions: New ARIPiprazole [Abilify] 7.5 mg PO DAILY 13 Days tab ARIPiprazole IM [Abilify Maintena] 400 mg IM QMONTHLY #1 each Chlorthalidone [Hygroton] 25 mg PO DAILY 30 Days tab amLODIPine [Norvasc] 5 mg PO DAILY 30 Days tab Discharge Medication List ARIPiprazole IM [Abilify Maintena] 400 mg IM QMONTHLY #1 each 06/06/21 [Rx] ARIPiprazole [Abilify] 7.5 mg PO DAILY 13 Days tab 06/06/21 [Rx] Chlorthalidone [Hygroton] 25 mg PO DAILY 30 Days tab 06/06/21 [Rx] amLODIPine [Norvasc] 5 mg PO DAILY 30 Days tab 06/06/21 [Rx] Follow up Appointment(s)/Referral(s): Antionette Mast MD [Primary Care Provider] - 1-2 days Discharge Disposition: HOME SELF-CARE
--- NOTE | 2021-06-06 14:39 | P.PN ---
Progress Note - Text Progress Note Date: 06/06/21 - Chief Complaint Not taking medications This is a 41-year-old patient, follows with Dr. Maggie Mast. Patient not taking any medications. She was sent in for a pickup order for noncompliance. She was at have an [facility] hospital last month. Has not been taking her medications and did not follow-up with [facility]. She was reported to have a negative urine drug screen. She feels that she keeps getting petitioned by her ex-. She lives with h er daughter and twin sons. Not employed. She is at appetite is fair sleeping well denies any hallucinations. She feels slightly anxious and slightly depressed. Has a good appetite. She thinks P[place] be bluff fabricating this. She has a diagnosis of bipolar disorder. No suicidal or homicidal thought processes. Admitted with bipolar disorder with manic episode. June 03: Oral intake fair. Ambulating. Slept okay. Has not had a bowel movement for 2 or 3 days. States finds it difficult to have a BM other than home. She is concerned that her children were currently with her ex-'s parents are being given for and she does not like that. June 06: Eating better. Sleeping well. No obvious psychosis reflected. Has been up and about. Per psychiatry to be discharged today. She looking for to see her children. Very slight pressured speech. Current medications reviewed Past medical history to include: Bipolar disorder, anxiety disorder Social history: . Not employed. Has a 13-year-old and 10-year-old twins. Does vape. Family history: Unremarkable Physical examination: VITAL SIGNS: He 7.9, 105, 16, 1:30/81, 97% room air GENERAL: Sitting up, comfortable. EYES: Pupils equal. Conjunctiva normal. HEENT: External appearance of nose and ears normal, oral cavity grossly normal. NECK: JVD not raised; masses not palpable. HEART: First and second heart sounds are normal; no edema. LUNGS: Respiratory rate normal; clear to auscultation. ABDOMEN: Soft, nontender, liver spleen not palpable, no masses palpable. PSYCH: Alert and oriented x3; mood and affect normal. MUSCULOSKELETAL:No Clubbing/cyanosis;muscles-grossly intact INVESTIGATIONS, reviewed in the clinical context: White count 4.4 hemoglobin 12.4 platelets 286 potassium 4.1 BUN 5 creatinine 0.5 bun LDL 103 TSH 2.0 Urine drug screen negative Coronavirus [PCR: Not detected Assessment and plan: -Obesity BMI 30.6 Weight loss measures -Recreational nicotine use in the form of vaping Nicotine patch -Bipolar disorder with manic episode as diagnosed by psychiatry Maria Fernanda Vora Ativan, Desyrel -Essential hypertension Amlodipine 5 mg a day. chlorthalidone 25 mg a day Care was discussed the patient. Follow-up with PCP upon discharge Thank you Dr. Rosen
== END 2021-06-06 12:36 | disposition home or self-care (01) | DRG 885 ==
LOC: EC 10:51 → 3MHU 18:11
PROVIDERS: ADMIT Psychiatry & Neurology Psychiatry; ATTEND Psychiatry & Neurology Psychiatry
DX: F31.10 Bipolar disorder, current episode manic without psychotic features, unspecified (principal); E66.9 Obesity, unspecified; Z68.30 Body mass index [BMI] 30.0-30.9, adult; Z71.6 Tobacco abuse counseling; F17.290 Nicotine dependence, other tobacco product, uncomplicated; Z71.89 Other specified counseling; F90.9 Attention-deficit hyperactivity disorder, unspecified type; F41.9 Anxiety disorder, unspecified; G47.00 Insomnia, unspecified; I10 Essential (primary) hypertension; Z79.899 Other long term (current) drug therapy; Z91.14 Patient's other noncompliance with medication regimen; Z91.19 Patient's noncompliance with other medical treatment and regimen; Z98.82 Breast implant status; Z56.0 Unemployment, unspecified; Z63.5 Disruption of family by separation and divorce; Z20.822 Contact with and (suspected) exposure to COVID-19
CPT/HCPCS: 80053; 80061; 80164; 80306; 82075; 83036; 84443; 85025; 87635; 99284

== ENCOUNTER 2022-11-06 10:27 | Inpatient (IN) | payer MEDICAID, OTHER ==
[2022-11-06] MEDS ORDERED: LORazepam 2 MG/ML INJ IM STA (11:52)
[2022-11-06] MEDS ORDERED: ZIPRASIDONE 20 MG VIAL IM STA (11:52)
--- NOTE | 2022-11-06 12:13 | ED ---
General Adult HPI - General Chief complaint: Psychiatric Symptoms Stated complaint: mental health Source: patient, RN notes reviewed, old records reviewed Mode of arrival: ambulatory Limitations: no limitations - History of Present Illness Initial comments: This is a 42-year-old female presents to the emergency department under a court order because she is acting very bizarre. Patient comes in here yelling and screaming and spitting up people. Patient is making statements that make no sense whatsoever and she is not answering any questions directly. Patient is not complaining of anything physically. - Related Data Home Medications Medication Instructions Recorded Confirmed Dextroamphetamine/Amphetamine 20 mg PO BID 11/06/22 11/06/22 [Adderall] Metoprolol Tartrate [Lopressor] 25 mg PO BID 11/06/22 11/06/22 lisinopriL 30 mg PO DAILY 11/06/22 11/06/22 Allergies Allergy/AdvReac Type Severity Reaction Status Date / Time No Known Allergies Allergy Verified 11/06/22 12:01 Review of Systems ROS Statement: Those systems with pertinent positive or pertinent negative responses have been documented in the HPI. ROS Other: All systems not noted in ROS Statement are negative. Past Medical History Past Medical History: Hypertension History of Any Multi-Drug Resistant Organisms: None Reported Past Surgical History: No Surgical Hx Reported Additional Past Surgical History / Comment(s): breast implants Past Anesthesia/Blood Transfusion Reactions: No Reported Reaction Past Psychological History: ADD/ADHD, Bipolar Smoking Status: Current every day smoker Past Alcohol Use History: None Reported Past Drug Use History: Marijuana - Past Family History Father Family Medical History: No Reported History Mother Family Medical History: No Reported History Brother(s) Family Medical History: No Reported History Sister(s) Family Medical History: No Reported History General Exam - General Exam Comments Initial Comments: GENERAL: Patient is well-developed and well-nourished. Patient is nontoxic and well- hydrated and is in no acute distress. ENT: Neck is soft and supple. No significant lymphadenopathy is noted. Oropharynx is clear. Moist mucous membranes. Neck has full range of motion without eliciting any pain. EYES: The sclera were anicteric and conjunctiva were pink and moist. Extraocular movements were intact and pupils were equal round and reactive to light. Eyelids were unremarkable. PULMONARY: Unlabored respirations. Good breath sounds bilaterally. No audible rales rhonchi or wheezing was noted. CARDIOVASCULAR: There is a regular rate and rhythm without any murmurs gallops or rubs. ABDOMEN: Soft and nontender with normal bowel sounds. SKIN: Skin is clear with no lesions or rashes and otherwise unremarkable. NEUROLOGIC: Patient is alert and oriented unable to assess orientation she does not answer any questions. Cranial nerves II through XII are grossly intact. Motor and sensory are also intact. Normal speech, volume and content. Symmetrical smile. MUSCULOSKELETAL: Normal extremities with adequate strength and full range of motion. LYMPHATICS: No significant lymphadenopathy is noted PSYCHIATRIC: Patient is bizarre and is not making any sense yelling and screaming and spitting all time she's in the emergency department Limitations: no limitations Course Vital Signs 11/06/22 10:30 Temperature 99.1 F Pulse Rate 92 Respiratory 18 Rate Blood Pressure 144/110 O2 Sat by Pulse 99 Oximetry Medical Decision Making - Medical Decision Making Was pt. sent in by a medical professional or institution (, PA, EGG WORKER, urgent care, hospital, or fci...) When possible be specific @ -No Did you speak to anyone other than the patient for history (EMS, parent, family, police, friend...)? What history was obtained from this source @ -No Did you review nursing and triage notes (agree or disagree)? Why? @ -I reviewed and agree with nursing and triage notes Were old charts reviewed (outside hosp., previous admission, EMS record, old EKG, old radiological studies, urgent care reports/EKG's, fci records)? Report findings @ -No old charts were reviewed Differential Diagnosis (chest pain, altered mental status, abdominal pain women, abdominal pain men, vaginal bleeding, weakness, fever, dyspnea, syncope, headache, dizziness, GI bleed, back pain, seizure, CVA, palpatations, mental health, musculoskeletal)? @ -Differential Mental Health Depression, anxiety, bipolar, psychosis, schizophrenia, borderline personality, situational depression, adjustment disorder, behavioral disorder, brain tumor, malingering, substance abuse, encephalopathy, medication reaction, dementia, hypothyroidism, degenerative neurologic disorder, lupus.... This is not meant to be all-inclusive list EKG interpreted by me (3pts min.). @ -As above X-rays interpreted by me (1pt min.). @ -None done CT interpreted by me (1pt min.). @ -None done U/S interpreted by me (1pt. min.). @ -None done What testing was considered but not performed or refused? (CT, X-rays, U/S, labs)? Why? @ -None What meds were considered but not given or refused? Why? @ -None Did you discuss the management of the patient with other professionals (professionals i.e. DrScar, PA, EGG WORKER, lab, RT, psych nurse, social media intern, tong hooker, teacher, hydrographical technical officer, onsite case manager)? Give summary @ -I spoke with the EPS and he agreed the patient needed to be admitted. Was smoking cessation discussed for >3mins.? @ -No Was critical care preformed (if so, how long)? @ -No Were there social determinants of health that impacted care today? How? (Homelessness, low income, unemployed, alcoholism, drug addiction, transportation, low edu. Level, literacy, decrease access to med. care, fpc, rehab)? @ -No Was there de-escalation of care discussed even if they declined (Discuss DNR or withdrawal of care, Hospice)? DNR status @ -No What co-morbidities impacted this encounter? (DM, HTN, Smoking, COPD, CAD, Cancer, CVA, ARF, Chemo, Hep., AIDS, mental health diagnosis, sleep apnea, morbid obesity)? @ -None Was patient admitted / discharged? Hospital course, mention meds given and route, prescriptions, significant lab abnormalities, going to OR and other pertinent info. @ -Patient is acutely psychotic and aggressive and uncooperative and spitting up people as they walked by. Patient was evaluated by EPS that he agreed the patient needed to be admitted at which point and the patient received Ativan and Geodon. Undiagnosed new problem with uncertain prognosis? @ -No Drug Therapy requiring intensive monitoring for toxicity (Heparin, Nitro, Insulin, Cardizem)? @ -No Were any procedures done? @ -No Diagnosis/symptom? @ -Psychosis Acute, or Chronic, or Acute on Chronic? @ -Acute Uncomplicated (without systemic symptoms) or Complicated (systemic symptoms)? @ -Complicated Side effects of treatment? @ -No Exacerbation, Progression, or Severe Exacerbation? @ -No Poses a threat to life or bodily function? How? (Chest pain, [place], AL, pneumonia, PE, COPD, DKA, ARF, appy, cholecystitis, CVA, Diverticulitis, Homicidal, Suicidal, threat to staff... and all critical care pts) @ -No Disposition Clinical Impression: Psychosis Disposition: ADMITTED IP TO THIS HOSP Referrals: None,Stated [Primary Care Provider] - 1-2 days Time of Disposition: 14:18
[2022-11-06] MEDS ORDERED: LORazepam 1 MG TAB PO PRN (17:43)
[2022-11-06] MEDS ORDERED: ACETAMINOPHEN TAB 325 MG TAB PO PRN (17:43)
[2022-11-06] MEDS ORDERED: IBUPROFEN 600 MG TAB PO PRN (17:43)
[2022-11-06] MEDS ORDERED: MAGNESIUM HYDROXIDE 2,400 MG/30 ML CUP PO PRN (17:43)
[2022-11-06] MEDS ORDERED: haloperidoL 5 MG TAB PO PRN (17:43)
[2022-11-06] MEDS ORDERED: HALOPERIDOL LACTATE 5 MG/ML 1 ML VIAL IM PRN (17:43)
[2022-11-06] MEDS ORDERED: MAG HYDROX/AL HYDROX/SIMETH 30 ML CUP PO PRN (17:43)
[2022-11-06] MEDS ORDERED: LORazepam 2 MG/ML INJ IM PRN (17:43)
[2022-11-06 18:16] LABS: Appearance,Urine Clear (Clear); Bacteria,Urine Rare /hpf; Bilirubin,Urine Negative (Negative); Blood,Urine Negative (Negative); Color,Urine Yellow; Glucose,Urine (UA) Negative (Negative); Hyaline Casts,Urine 20 /lpf (0-2); Ketones,Urine Negative (Negative); Leukocyte Esterase,Urine Small (Negative); Mucus,Urine Few /hpf; Nitrite,Urine Negative (Negative); Protein,Urine Trace (Negative); RBC,Urine <1 /hpf (0-5); Specific Gravity,Urine 1.013 (1.001-1.035); Squamous Epithelial Cell,Urine 3 /hpf (0-4); Urobilinogen,Urine <2.0 mg/dL (<2.0); WBC,Urine 2 /hpf (0-5)
[2022-11-06 18:24] LABS: Amphetamine Screen,Urine Not Detected (NotDetected); Barbiturate Screen,Urine Not Detected (NotDetected); Benzodiazepines Screen,Urine Detected (NotDetected); Cocaine Screen,Urine Not Detected (NotDetected); Methadone Screen, Urine Not Detected (NotDetected); Opiate Screen,Urine Not Detected (NotDetected); Oxycodone Screen, Urine Not Detected (NotDetected); Phencyclidine Screen,Urine Not Detected (NotDetected); Tricyclic Antidepressant,Urine Not Detected (NotDetected); Urn Cannabinoid Scrn Detected (NotDetected)
[2022-11-06] MEDS: METOPROLOL TARTRATE 25 MG TAB PO SCH (21:14)
[2022-11-07 08:06] LABS: Basophils % (A) 1 %; Eosinophils # (A) 0.2 k/uL (0-0.7); Eosinophils % (A) 3 %; HCT 35.7 % (34.0-46.0); HGB 11.5 gm/dL (11.4-16.0); Hypochromasia Slight; Lymphocytes % (A) 39 %; MCH 24.9 pg (25.0-35.0); MCHC 32.2 g/dL (31.0-37.0); MCV 77.5 fL (80.0-100.0); Mean Platelet Volume 7.7; Microcytosis Slight; Monocytes # (A) 0.3 k/uL (0-1.0); Monocytes % (A) 6 %; Neutrophils # (A) 2.5 k/uL (1.3-7.7); Neutrophils % (A) 50 %; Platelet Count 291 k/uL (150-450); RDW 15.5 % (11.5-15.5); WBC 5.1 k/uL (3.8-10.6)
[2022-11-07 08:20] LABS: ALT 18 U/L (4-34); AST 26 U/L (14-36); African American GFR (CKD) >90 (>60 ml/min/1.73 sqM); Alkaline Phosphatase 47 U/L (38-126); Anion Gap 7 mmol/L; Blood Urea Nitrogen 7 mg/dL (7-17); Carbon Dioxide 25 mmol/L (22-30); Chloride 104 mmol/L (98-107); Glucose 91 mg/dL (74-99); Non-African American GFR(CKD) >90 (>60 ml/min/1.73 sqM); Potassium 4.3 mmol/L (3.5-5.1); Sodium 136 mmol/L (137-145); Total Bilirubin 0.5 mg/dL (0.2-1.3); Total Protein 7.1 g/dL (6.3-8.2)
[2022-11-07] MEDS: lisinopriL 10 MG TAB PO SCH ×2 (09:06→09:17)
[2022-11-07] MEDS: NICOTINE 14MG/24HR PATCH TRANSDERM SCH (09:13)
[2022-11-07] MEDS: METOPROLOL TARTRATE 25 MG TAB PO SCH ×2 (09:16→21:11)
[2022-11-07] MEDS ORDERED: ARIPiprazole 5 MG TAB PO STA (10:16)
[2022-11-07 13:37] LABS: VLDL Calculation 11.32 mg/dL (5.00-40.00)
--- NOTE | 2022-11-07 13:44 | P.HP ---
Psychiatric H&P - . H&P Date: 11/07/22 History & Physical: Allergies Allergy/AdvReac Type Severity Reaction Status Date / Time No Known Allergies Allergy Verified 11/06/22 12:01 Vital Signs Temp 97.1 F L 11/07/22 06:34 Pulse 88 11/07/22 06:34 Resp 16 11/07/22 06:34 BP 134/93 11/07/22 06:34 Pulse Ox 99 11/06/22 18:09 FiO2 Intake & Output 11/06/22 11/07/22 11/07/22 18:59 06:59 18:59 Weight 81.647 kg Laboratory Last Values WBC 5.1 k/uL (3.8-10.6) 11/07/22 07:33 RBC 4.60 m/uL (3.80-5.40) 11/07/22 07:33 Hgb 11.5 gm/dL (11.4-16.0) 11/07/22 07:33 Hct 35.7 % (34.0-46.0) 11/07/22 07:33 MCV 77.5 fL (80.0-100.0) L 11/07/22 07:33 MCH 24.9 pg (25.0-35.0) L 11/07/22 07:33 MCHC 32.2 g/dL (31.0-37.0) 11/07/22 07:33 RDW 15.5 % (11.5-15.5) 11/07/22 07:33 Plt Count 291 k/uL (150-450) 11/07/22 07:33 MPV 7.7 11/07/22 07:33 Neutrophils % 50 % 11/07/22 07:33 Lymphocytes % 39 % 11/07/22 07:33 Monocytes % 6 % 11/07/22 07:33 Eosinophils % 3 % 11/07/22 07:33 Basophils % 1 % 11/07/22 07:33 Neutrophils # 2.5 k/uL (1.3-7.7) 11/07/22 07:33 Lymphocytes # 2.0 k/uL (1.0-4.8) 11/07/22 07:33 Monocytes # 0.3 k/uL (0-1.0) 11/07/22 07:33 Eosinophils # 0.2 k/uL (0-0.7) 11/07/22 07:33 Basophils # 0.0 k/uL (0-0.2) 11/07/22 07:33 Hypochromasia Slight 11/07/22 07:33 Microcytosis Slight 11/07/22 07:33 Sodium 136 mmol/L (137-145) L 11/07/22 07:33 Potassium 4.3 mmol/L (3.5-5.1) 11/07/22 07:33 Chloride 104 mmol/L (98-107) 11/07/22 07:33 Carbon Dioxide 25 mmol/L (22-30) 11/07/22 07:33 Anion Gap 7 mmol/L 11/07/22 07:33 BUN 7 mg/dL (7-17) 11/07/22 07:33 Creatinine 0.57 mg/dL (0.52-1.04) 11/07/22 07:33 Est GFR (CKD-EPI)AfAm >90 (>60 ml/min/1.73 sqM) 11/07/22 07:33 Est GFR (CKD-EPI)NonAf >90 (>60 ml/min/1.73 sqM) 11/07/22 07:33 Glucose 91 mg/dL (74-99) 11/07/22 07:33 Calcium 9.0 mg/dL (8.4-10.2) 11/07/22 07:33 Total Bilirubin 0.5 mg/dL (0.2-1.3) 11/07/22 07:33 AST 26 U/L (14-36) 11/07/22 07:33 ALT 18 U/L (4-34) 11/07/22 07:33 Alkaline Phosphatase 47 U/L (38-126) 11/07/22 07:33 Total Protein 7.1 g/dL (6.3-8.2) 11/07/22 07:33 Albumin 4.0 g/dL (3.5-5.0) 11/07/22 07:33 Triglycerides 56.60 mg/dL (0.00-149.00) 11/07/22 07:33 Cholesterol 157.00 mg/dL (0.00-200.00) 11/07/22 07:33 LDL Cholesterol, Calc 83.0 mg/dL (0.0-131.0) 11/07/22 07:33 VLDL Cholesterol, Calc 11.32 mg/dL (5.00-40.00) 11/07/22 07:33 HDL Cholesterol 62.70 mg/dL (40.00-60.00) H 11/07/22 07:33 Cholesterol/HDL Ratio 2.50 Ratio 11/07/22 07:33 TSH 1.270 mIU/L (0.465-4.680) 11/07/22 07:33 Urine Color Yellow 11/06/22 17:59 Urine Appearance Clear (Clear) 11/06/22 17:59 Urine pH 5.0 (5.0-8.0) 11/06/22 17:59 Ur Specific [place] 1.013 (1.001-1.035) 11/06/22 17:59 Urine Protein Trace (Negative) H 11/06/22 17:59 Urine Glucose (UA) Negative (Negative) 11/06/22 17:59 Urine Ketones Negative (Negative) 11/06/22 17:59 Urine Blood Negative (Negative) 11/06/22 17:59 Urine Nitrite Negative (Negative) 11/06/22 17:59 Urine Bilirubin Negative (Negative) 11/06/22 17:59 Urine Urobilinogen <2.0 mg/dL (<2.0) 11/06/22 17:59 Ur Leukocyte Esterase Small (Negative) H 11/06/22 17:59 Urine RBC <1 /hpf (0-5) 11/06/22 17:59 Urine WBC 2 /hpf (0-5) 11/06/22 17:59 Ur Squamous Epith Cells 3 /hpf (0-4) 11/06/22 17:59 Urine Bacteria Rare /hpf (None) H 11/06/22 17:59 Hyaline Casts 20 /lpf (0-2) H 11/06/22 17:59 Urine Mucus Few /hpf (None) H 11/06/22 17:59 Urine HCG, Qual Not Detected (Not Detectd) 11/06/22 17:59 Urine Opiates Screen Not Detected (NotDetected) 11/06/22 18:03 Ur Oxycodone Screen Not Detected (NotDetected) 11/06/22 18:03 Urine Methadone Screen Not Detected (NotDetected) 11/06/22 18:03 Ur Propoxyphene Screen Not Detected (NotDetected) 11/06/22 18:03 Ur Barbiturates Screen Not Detected (NotDetected) 11/06/22 18:03 U Tricyclic Antidepress Not Detected (NotDetected) 11/06/22 18:03 Ur Phencyclidine Scrn Not Detected (NotDetected) 11/06/22 18:03 Ur Amphetamines Screen Not Detected (NotDetected) 11/06/22 18:03 U Methamphetamines Scrn Not Detected (NotDetected) 11/06/22 18:03 U Benzodiazepines Scrn Detected (NotDetected) H 11/06/22 18:03 Urine Cocaine Screen Not Detected (NotDetected) 11/06/22 18:03 U Marijuana (THC) Screen Detected (NotDetected) H 11/06/22 18:03 Coronavirus (PCR) Not Detected (Not Detectd) 11/06/22 15:39 11/07/22 13:44 IDENTIFYING DATA: Patient is a , unemployed, 42-year-old female with significant history of bipolar 1 disorder who presents to the hospital on 11/06/2022, under petition for mental health evaluation due to acute marquita. HPI: Patient presented to the hospital her 11/06/2022, brought in some emergency department by the [facility] from [facility]. The patient was noted in the emergency department to be overtly manic and agitated. She spat on the nurse. She was administered medications to sedate. She was disorganized, pressured, belligerent, abrasive, swearing, and making multiple lewd statements. She also presented with restorationism preoccupation and history of visual hallucinations. She was subsequently admitted onto our psychiatric unit. Upon evaluation on the psychiatric unit, the patient continues to present as overtly manic. She has very poor insight and does not believe that she requires any treatment. She states that once for court order lapsed, she stopped taking her medications. She believes she does not need to be on any medications. She is unable to provide a clear history of events leading up to this hospitalization however does report that her neighbor is probably the reason why she is here. She states that her neighbor and her have not been getting along and that she has been constantly recording her and making mean comments towards her. The patient herself denies any suicidal or homicidal ideation, intention, and/or plan. She does report occasional auditory hallucinations and visual hallucinations however is vehemently denying any at this time. The patient firmly states that she does not require any medications. Second clinical certificate was filled out due to the patient's acute marquita and history of nonadherence with treatment. PAST PSYCHIATRIC HISTORY: Patient has significant history of bipolar 1 disorder. The patient has trialed numerous psychiatric medications including Zyprexa, Depakote, and Abilify. She was last discharged on a regimen of Abilify maintena. She was last hospitalized on our psychiatric unit in May 2021. She is open with [facility]. Patient denies any history of suicide attempts in the past. PMH: Past Medical History: Hypertension History of Any Multi-Drug Resistant Organisms: None Reported Past Surgical History: No Surgical Hx Reported Additional Past Surgical History / Comment(s): breast implants Past Anesthesia/Blood Transfusion Reactions: No Reported Reaction Past Psychological History: ADD/ADHD, Bipolar Smoking Status: Current every day smoker Past Alcohol Use History: None Reported Past Drug Use History: Marijuana ALLERGIES: NO KNOWN DRUG ALLERGIES CHEMICAL DEPENDENCY HISTORY: Patient has history of marijuana use. She also reports daily tobacco use. No illicit drug use or alcohol use endorsed. UDS is positive for marijuana and benzodiazepines. FAMILY PSYCHIATRIC/SUBSTANCE USE HISTORY: The patient reports a history of mental illness with her father. SOCIAL HISTORY: Patient was born and raised in [place], [place]. She completed up to the eighth grade of school. 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 She has a history of being incarcerated for trespassing. She reports that she has 3 daughters. She is currently unemployed. She is currently . MENTAL STATUS EXAM: General Appearance: Patient appears to be stated age is alert, and difficult to direct but attempts to cooperate. Patient appears to have fair hygiene and grooming. Behavior: Patient displays elevated psychomotor activity. Patient is unable to sit still. Constantly pacing. Speech: Patient's speech is pressured, loud in volume, tangential Mood/Affect: Patient reports their mood is "feeling really good," affect is labile. Patient can be very bright and euphoric one second and very irritable. Suicidality/Homicidality: Patient is vehemently denying any suicidal or homi cidal ideation, intention, and/or plan. Perceptions: Patient denies any visual hallucinations and denies any auditory hallucinations Though content/process: Flight of ideas and loose associations are evident. Some restorationism preoccupation and grandiosity as well. Memory and concentration: Grossly poor Judgment and insight: Very poor STRENGTHS/WEAKNESSES: Strength is that the patient is resilient. Weakness is that the patient has severe mental illness and a history of nonadherence with treatment. Insight and judgment is very poor. INTELLECT: average IMPRESSIONS: Bipolar 1 disorder, manic episode Anxiety disorder, unspecified Noncompliance with medication regimen Nicotine dependence PLAN: -Patient is admitted under involuntary status to [facility] for stabilization of psychiatric symptoms and safety. A second certification was completed and along with petition will be filed for court. -Medications : Will start patient on Abilify 5 mg by mouth daily with plans to increase to 10 mg tomorrow. Plan is to transition patient back to long-acting injectable medication. -Ativan and Haldol PRN for agitation/aggression -Patient was counselled on substance abuse and desired to cut back on use -Patient was informed of the risks, benefits and side effects of the medication and patient verbally consented to taking the medications. -Internal Medicine consult to perform medical evaluation and physical. -NRT - nicotine patch -SW on board for discharge planning. Encourage patient to participate in groups to work on coping skills. 11/07/22 13:44
--- NOTE | 2022-11-07 15:57 | P.HPMEDMHU ---
History of Present Illness H&P Date: 11/07/22 Patient is a 42-year-old female with a past medical history of hypertension and ADHD who presents with acute psychosis. Patient admitted to [facility] to and medicine service has been consulted for history and physical. Patient does not know why she is in the psych unit. She states that there is nothing wrong with her. Patient denies any medical history. She is on blood pressure medications however she believes that she should not be in any medications at all. She wants to go home. She actually wants to go to [place]. Patient says that she does vaping. She denies using marijuana because it makes her sick. However UDS was positive for marijuana. Review of Systems 10 ROS reviewed and are negative except as noted in HPI Past Medical History Past Medical History: Hypertension History of Any Multi-Drug Resistant Organisms: None Reported Past Surgical History: No Surgical Hx Reported Additional Past Surgical History / Comment(s): breast implants Past Anesthesia/Blood Transfusion Reactions: No Reported Reaction Past Psychological History: ADD/ADHD, Bipolar Smoking Status: Vaper Past Alcohol Use History: None Reported Additional Past Alcohol Use History / Comment(s): Patient has history of smoking and quit when she was 18 years old. She does use marijuana approximately once every 6 months. She drinks alcohol on a rare basis. She denies any medical marijuana card. She is currently but his left her . She has 3-year-old twins and one 6-year-old daughter. Past Drug Use History: Marijuana - Past Family History Father Family Medical History: No Reported History Mother Family Medical History: No Reported History Brother(s) Family Medical History: No Reported History Sister(s) Family Medical History: No Reported History Medications and Allergies Home Medications Medication Instructions Recorded Confirmed Type Dextroamphetamine/Amphetamine 20 mg PO BID 11/06/22 11/06/22 History [Adderall] Metoprolol Tartrate [Lopressor] 25 mg PO BID 11/06/22 11/06/22 History lisinopriL 30 mg PO DAILY 11/06/22 11/06/22 History Allergies Allergy/AdvReac Type Severity Reaction Status Date / Time No Known Allergies Allergy Verified 11/06/22 12:01 Physical Exam Osteopathic Statement: *. No significant issues noted on an osteopathic structural exam other than those noted in the History and Physical/Consult. Vitals: Vital Signs Temp Pulse Pulse Resp BP BP Pulse Ox 11/07/22 06:34 97.1 F L 88 16 134/93 11/06/22 21:22 97 154/87 11/06/22 18:09 97.9 F 87 18 138/88 99 11/06/22 18:03 92 18 144/89 96 Intake and Output 11/07/22 11/07/22 11/07/22 06:59 14:59 22:59 Other: Weight 81.647 kg General: [Alert and oriented, well nourished, no acute distress]. Eye: [PERRL, EOMI, normal conjunctiva]. HENT: [Normocephalic, clear tympanic membranes, normal hearing, moist oral mucosa, no scleral icterus, no sinus tenderness]. Neck: [Supple, non-tender, no carotid bruits, no JVD, no lymphadenopathy]. Lungs: [Clear to auscultation and percussion, non-labored respiration]. Heart: [Normal rate, regular rhythm, no murmur, gallop or edema]. Abdomen: [Soft, non-tender, non-distended, normal bowel sounds, no masses]. Musculoskeletal: [Normal range of motion and strength, no tenderness or swelling]. Skin: [Skin is warm, dry and pink, no rashes or lesions]. Neurologic: [Awake, alert, and oriented X3, CN II-XII intact]. Psychiatric: [Cooperative, appropriate mood and affect]. Cranial Nerve Examination - Cranial Nerves Cranial Nerve I- Olfactory: Intact Cranial Nerve II- Optic: Intact Cranial Nerve III- Oculomotor: Intact Cranial Nerve IV- Trochlear: Intact Cranial Nerve V- Trigeminal: Intact Cranial Nerve - Abducens: Intact Cranial Nerve VII- Facial: Intact Cranial Nerve VIII- Auditory: Intact Cranial Nerve IX- Glossopharyngeal: Intact Cranial Nerve X- Vagus: Intact Cranial Nerve XI- Accessory: Intact Cranial Nerve XII- Hypoglossal: Intact Results CBC & Chem 7: 11/07/22 07:33 11/07/22 07:33 Labs: Abnormal Lab Results - Last 24 Hours (Table) 11/06/22 11/06/22 11/07/22 Range/Units 17:59 18:03 07:33 MCV 77.5 L (80.0-100.0) fL MCH 24.9 L (25.0-35.0) pg Sodium (137-145) mmol/L HDL Cholesterol (40.00-60.00) mg/dL Urine Protein Trace H (Negative) Ur Leukocyte Esterase Small H (Negative) Urine Bacteria Rare H (None) /hpf Hyaline Casts 20 H (0-2) /lpf Urine Mucus Few H (None) /hpf U Benzodiazepines Scrn Detected H (NotDetected) U Marijuana (THC) Screen Detected H (NotDetected) 11/07/22 Range/Units 07:33 MCV (80.0-100.0) fL MCH (25.0-35.0) pg Sodium 136 L (137-145) mmol/L HDL Cholesterol 62.70 H (40.00-60.00) mg/dL Urine Protein (Negative) Ur Leukocyte Esterase (Negative) Urine Bacteria (None) /hpf Hyaline Casts (0-2) /lpf Urine Mucus (None) /hpf U Benzodiazepines Scrn (NotDetected) U Marijuana (THC) Screen (NotDetected) Thrombosis Risk Factor Assmnt - Choose All That Apply Any of the Below Risk Factors Present?: Yes Each Factor Represents 1 point: Age 41-60 years Other Risk Factors: No Other congenital or acquired thrombophilia - If yes, enter type in comment: No Thrombosis Risk Factor Assessment Total Risk Factor Score: 1 Thrombosis Risk Factor Assessment Level: Low Risk Assessment and Plan Assessment: Vaping use Marijuana use Patient counseled on cessation Bipolar As per your psychiatric management Please do not hesitate to contact us for any medical questions.
[2022-11-08] MEDS: METOPROLOL TARTRATE 25 MG TAB PO SCH ×2 (08:58→20:36)
[2022-11-08] MEDS: lisinopriL 10 MG TAB PO SCH (08:58)
[2022-11-08] MEDS: NICOTINE 14MG/24HR PATCH TRANSDERM SCH (08:59)
[2022-11-08] MEDS ORDERED: ARIPiprazole 10 MG TAB PO SCH (09:00)
[2022-11-08] MEDS ORDERED: ARIPiprazole IM SYRINGE 400 MG (NO CHARGE) PHARMACY STOCK IM ONE (09:24)
--- NOTE | 2022-11-08 12:11 | P.PN ---
Progress Note - Text Progress Note Date: 11/08/22 Interval History: Patient was seen wandering the hallways and was directable and agreeable to speak with job specification writer in the office. The patient continues to be overtly manic. She expresses she wants to be discharged and is demanding this provider to contact "RadhaMalissa, whoever!" to get it done. The patient vehemently states that she is not manic. However, the patient continues to display flight of ideas and is difficult to follow in conversation. She is denying any suicidal or homicidal ideation, intention, and/or plan. She is denying any auditory or visual hallucinations. She reports no paranoia however does continue to express concerns regarding her relationship with her . She reports that she is willing to take the Abilify injection today in order to facilitate her discharge. Mental Status Exam: General Appearance: Patient appears to be stated age is alert, difficult to direct but is cooperative. Behavior: Patient displays elevated psychomotor activity. Patient is unable to sit still. Constantly pacing. Speech: Patient's speech is pressured, loud in volume, tangential. Slightly less pressured today. Mood/Affect: Patient reports their mood is "I'm mad at you because of what she wrote (the petition)." affect is labile. Patient can be very bright and euphoric one second and very irritable. Suicidality/Homicidality: Patient is vehemently denying any suicidal or homicidal ideation, intention, and/or plan. Perceptions: Patient denies any visual hallucinations and denies any auditory hallucinations Though content/process: Flight of ideas and loose associations are evident. Grandiose delusions. Memory and concentration: Grossly poor Judgment and insight: Very poor Vital Signs Temp 98.1 F 11/08/22 08:58 Pulse 70 11/08/22 10:15 Resp 20 11/08/22 08:58 BP 133/85 11/08/22 10:15 Pulse Ox 98 11/08/22 06:44 FiO2 Intake & Output 11/07/22 11/08/22 11/08/22 18:59 06:59 18:59 Weight 81.647 kg Laboratory Results - Last 24 Hours 11/07/22 11/07/22 07:33 07:[address] Glu mg/dL 105 Hemoglobin A1c 5.3 Triglycerides 56.60 Cholesterol 157.00 LDL Cholesterol, Calc 83.0 VLDL Cholesterol, Calc 11.32 HDL Cholesterol 62.70 H Cholesterol/HDL Ratio 2.50 Assessment Bipolar 1 disorder, manic episode Anxiety disorder, unspecified Noncompliance with medication regimen Nicotine dependence Plan: -Patient continues to meet criteria for inpatient psychiatric admission for symptom stabilization and safety. Patient has been petitioned and certified. -Medications: Increase Abilify to 15 mg today and we will administer Abilify maintena 400 mg IM today for bipolar disorder -When necessary Ativan and Haldol for agitation/aggression. -NRT - nicotine patch -SW on board for discharge planning. Encouraged the patient to participate in milieu.
[2022-11-09] MEDS: NICOTINE 14MG/24HR PATCH TRANSDERM SCH (07:56)
[2022-11-09] MEDS: lisinopriL 10 MG TAB PO SCH (07:58)
[2022-11-09] MEDS: METOPROLOL TARTRATE 25 MG TAB PO SCH ×2 (07:58→21:15)
[2022-11-09] MEDS ORDERED: ARIPiprazole 15 MG TAB PO SCH (09:00)
--- NOTE | 2022-11-09 11:38 | P.PN ---
Progress Note - Text Progress Note Date: 11/09/22 Interval History: Patient was seen wandering the hallways and was directable and agreeable to speak with sign writer hand in the office. The patient is currently not reporting any suicidal or homicidal ideation, intention, and/or plan. She is not reporting any auditory or visualizations. However, the patient continues to be manic and displays labile, expansive, and euphoric moods. Furthermore, the patient often goes on tangents and makes grandiose statements such as being in contact with Putin, and suspecting the treatment team for working for [employer] (suspects this provider for working with [employer]) to keep "God loving women locked up." She continues to state numerous times that she is a "Woman of God." She reports, "The only thing that is not of God on me are my breasts." When informed that she would not be discharged today, the patient becomes quite tearful. Her insight is very poor as she does not believe that she is bipolar. Mental Status Exam: General Appearance: Patient appears to be stated age is alert, directable, and cooperative. Behavior: She displays elevated psychomotor activity however appears to be less intrusive today. Speech: Patient's speech is pressured, at times loud in volume. More linear today. Mood/Affect: Mood is "very upset because of not being discharged," affect is expansive however less so than before Suicidality/Homicidality: Patient vehemently denies any suicidal or homicidal ideation. Perceptions: Patient denies any visual hallucinations and denies any auditory hallucinations Though content/process: Flight of ideas, grandiosity, loose associations. Memory and concentration: Grossly poor but mildly improving Judgment and insight: Grossly poor but mildly improving Vital Signs Temp 98.6 F 11/09/22 07:06 Pulse 82 11/09/22 07:06 Resp 18 11/09/22 07:06 BP 167/67 11/09/22 07:06 Pulse Ox 98 11/09/22 07:06 FiO2 Laboratory Results WBC 5.1 k/uL (3.8-10.6) 11/07/22 07:33 RBC 4.60 m/uL (3.80-5.40) 11/07/22 07:33 Hgb 11.5 gm/dL (11.4-16.0) 11/07/22 07:33 Hct 35.7 % (34.0-46.0) 11/07/22 07:33 MCV 77.5 fL (80.0-100.0) L 11/07/22 07:33 MCH 24.9 pg (25.0-35.0) L 11/07/22 07:33 MCHC 32.2 g/dL (31.0-37.0) 11/07/22 07:33 RDW 15.5 % (11.5-15.5) 11/07/22 07:33 Plt Count 291 k/uL (150-450) 11/07/22 07:33 MPV 7.7 11/07/22 07:33 Neutrophils % 50 % 11/07/22 07:33 Lymphocytes % 39 % 11/07/22 07:33 Monocytes % 6 % 11/07/22 07:33 Eosinophils % 3 % 11/07/22 07:33 Basophils % 1 % 11/07/22 07:33 Neutrophils # 2.5 k/uL (1.3-7.7) 11/07/22 07:33 Lymphocytes # 2.0 k/uL (1.0-4.8) 11/07/22 07:33 Monocytes # 0.3 k/uL (0-1.0) 11/07/22 07:33 Eosinophils # 0.2 k/uL (0-0.7) 11/07/22 07:33 Basophils # 0.0 k/uL (0-0.2) 11/07/22 07:33 Hypochromasia Slight 11/07/22 07:33 Microcytosis Slight 11/07/22 07:33 Sodium 136 mmol/L (137-145) L 11/07/22 07:33 Potassium 4.3 mmol/L (3.5-5.1) 11/07/22 07:33 Chloride 104 mmol/L (98-107) 11/07/22 07:33 Carbon Dioxide 25 mmol/L (22-30) 11/07/22 07:33 Anion Gap 7 mmol/L 11/07/22 07:33 BUN 7 mg/dL (7-17) 11/07/22 07:33 Creatinine 0.57 mg/dL (0.52-1.04) 11/07/22 07:33 Est GFR (CKD-EPI)AfAm >90 (>60 ml/min/1.73 sqM) 11/07/22 07:33 Est GFR (CKD-EPI)NonAf >90 (>60 ml/min/1.73 sqM) 11/07/22 07:33 Glucose 91 mg/dL (74-99) 11/07/22 07:[address] Glu mg/dL 105 mg/dL 11/07/22 07:33 Hemoglobin A1c 5.3 % (<=6.0) 11/07/22 07:33 Calcium 9.0 mg/dL (8.4-10.2) 11/07/22 07:33 Total Bilirubin 0.5 mg/dL (0.2-1.3) 11/07/22 07:33 AST 26 U/L (14-36) 11/07/22 07:33 ALT 18 U/L (4-34) 11/07/22 07:33 Alkaline Phosphatase 47 U/L (38-126) 11/07/22 07:33 Total Protein 7.1 g/dL (6.3-8.2) 11/07/22 07:33 Albumin 4.0 g/dL (3.5-5.0) 11/07/22 07:33 Triglycerides 56.60 mg/dL (0.00-149.00) 11/07/22 07:33 Cholesterol 157.00 mg/dL (0.00-200.00) 11/07/22 07:33 LDL Cholesterol, Calc 83.0 mg/dL (0.0-131.0) 11/07/22 07:33 VLDL Cholesterol, Calc 11.32 mg/dL (5.00-40.00) 11/07/22 07:33 HDL Cholesterol 62.70 mg/dL (40.00-60.00) H 11/07/22 07:33 Cholesterol/HDL Ratio 2.50 Ratio 11/07/22 07:33 TSH 1.270 mIU/L (0.465-4.680) 11/07/22 07:33 Urine Color Yellow 11/06/22 17:59 Urine Appearance Clear (Clear) 11/06/22 17:59 Urine pH 5.0 (5.0-8.0) 11/06/22 17:59 Ur Specific [place] 1.013 (1.001-1.035) 11/06/22 17:59 Urine Protein Trace (Negative) H 11/06/22 17:59 Urine Glucose (UA) Negative (Negative) 11/06/22 17:59 Urine Ketones Negative (Negative) 11/06/22 17:59 Urine Blood Negative (Negative) 11/06/22 17:59 Urine Nitrite Negative (Negative) 11/06/22 17:59 Urine Bilirubin Negative (Negative) 11/06/22 17:59 Urine Urobilinogen <2.0 mg/dL (<2.0) 11/06/22 17:59 Ur Leukocyte Esterase Small (Negative) H 11/06/22 17:59 Urine RBC <1 /hpf (0-5) 11/06/22 17:59 Urine WBC 2 /hpf (0-5) 11/06/22 17:59 Ur Squamous Epith Cells 3 /hpf (0-4) 11/06/22 17:59 Urine Bacteria Rare /hpf (None) H 11/06/22 17:59 Hyaline Casts 20 /lpf (0-2) H 11/06/22 17:59 Urine Mucus Few /hpf (None) H 11/06/22 17:59 Urine HCG, Qual Not Detected (Not Detectd) 11/06/22 17:59 Urine Opiates Screen Not Detected (NotDetected) 11/06/22 18:03 Ur Oxycodone Screen Not Detected (NotDetected) 11/06/22 18:03 Urine Methadone Screen Not Detected (NotDetected) 11/06/22 18:03 Ur Propoxyphene Screen Not Detected (NotDetected) 11/06/22 18:03 Ur Barbiturates Screen Not Detected (NotDetected) 11/06/22 18:03 U Tricyclic Antidepress Not Detected (NotDetected) 11/06/22 18:03 Ur Phencyclidine Scrn Not Detected (NotDetected) 11/06/22 18:03 Ur Amphetamines Screen Not Detected (NotDetected) 11/06/22 18:03 U Methamphetamines Scrn Not Detected (NotDetected) 11/06/22 18:03 U Benzodiazepines Scrn Detected (NotDetected) H 11/06/22 18:03 Urine Cocaine Screen Not Detected (NotDetected) 11/06/22 18:03 U Marijuana (THC) Screen Detected (NotDetected) H 11/06/22 18:03 Coronavirus (PCR) Not Detected (Not Detectd) 11/06/22 15:39 Assessment Bipolar 1 disorder, manic episode Anxiety disorder, unspecified Noncompliance with medication regimen Nicotine dependence Plan: -Patient continues to meet criteria for inpatient psychiatric admission for symptom stabilization and safety. She has been petitioned and certified Patient is scheduled to meet with an v belt inspector for possible deferral today. -Medications: Increase Abilify to 20 mg by mouth daily for mood stabilization Patient received Abilify maintena 400 mg IM on 11/08/2022. -When necessary Ativan and Haldol for agitation/aggression. -NRT - nicotine patch -SW on board for discharge planning. Encouraged the patient to participate in milieu.
[2022-11-10] MEDS: NICOTINE 14MG/24HR PATCH TRANSDERM SCH (07:46)
[2022-11-10] MEDS: lisinopriL 10 MG TAB PO SCH (07:47)
[2022-11-10] MEDS: METOPROLOL TARTRATE 25 MG TAB PO SCH ×2 (07:47→20:51)
--- NOTE | 2022-11-10 17:51 | P.PN ---
Progress Note - Text Progress Note Date: 11/10/22 Interval history: Patient was seen resting in her bed and was directable and agreeable to speak with customs entry writer. Nursing reports that patient slept throughout the night, however she is still exhibiting signs of marquita. She is talkative with rapid pressured speech, mood appears elevated. She is focused on going home however her insight remains poor and she claims she does not have a mental illness, states "I'm in no way mentally ill, nothing wrong with me". She later gets dressed up in sparkly clothes with heavy makeup, and appears religiously preoccupied, talking about God's Will. At this time patient denies any suicidal or homicidal ideation, intent or plan. Denies any auditory or visual hallucinations. Patient denies any side effects from the medications and has been compliant with meds. Mental status exam: General Appearance: Patient appears to be stated age, dresses in sparkly clothes with heavy make-up Behavior: No agitated behavior. Patient exhibiting signs of marquita, appears religiously preoccupied. Speech: Patient's speech is rapid and pressured. Mood/Affect: Mood is elevated, affect is bright and animated. Suicidality/Homicidality: Patient denies having any suicidal or homicidal ideation intent or plan. Perceptions: Patient denies any auditory or visual hallucinations. Though content/process: Thought content contains grandiose delusions, and thought process is rambling. Memory and concentration: AOX3, grossly intact for the purposes of this session Judgment and insight: poor Assessment/Plan: Continue with current diagnosis. Patient continues to meet criteria for inpatient psychiatric admission for symptom stabilization and safety. Patient will be maintained on current psychotropic medication regimen. Monitor response to Abilify Maintena. Consider adding mood stabilizer. Monitor for medication compliance and for any psychotropic medication side effects. Will continue to monitor ongoing response to treatment. Encouraged participation in milieu.
[2022-11-11] MEDS: lisinopriL 10 MG TAB PO SCH (08:30)
[2022-11-11] MEDS: NICOTINE 14MG/24HR PATCH TRANSDERM SCH (08:30)
[2022-11-11] MEDS: METOPROLOL TARTRATE 25 MG TAB PO SCH ×2 (08:32→21:31)
--- NOTE | 2022-11-11 18:47 | P.PN ---
Progress Note - Text Progress Note Date: 11/11/22 Interval history: Patient was seen active on the unit and later was resting in her bed and agreeable to speak with sql report writer. She continues to exhibit signs and symptoms of marquita. Nursing reports that patient did not sleep much last night, and only slept about 2 hours the night before. She has been loud, intrusive on the unit. She is talkative with rapid pressured speech, mood appears labile. She continues to be focused on discharge however her insight remains poor and she claims she does not have a mental illness. She claims she slept well last night, claims she slept 8 hours, however staff recorded she was up most of the night. She continues to be religiously preoccupied; earlier in the day greeted me with "Adryan Dudley, it is a Holy Day and I need to be home with my family." She continues to exhibit rapid shifting of ideas with pressured speech, talking about "blasphemy of the holy spirit" is wrong, and she feels she is "incarcerated" here and "locked up like a science experiment", and she is on her menses and had to do her laundry in the middle of the night. At this time patient denies any suicidal or homicidal ideation, intent or plan. Denies any auditory or visual hallucinations. Patient denies any side effects today but is only willing to take Abilify. We discussed the addition of a mood stabilizer and she became upset stating that she will not take Depakote or [place] or any other medication, just Abilify. Mental status exam: General Appearance: Patient appears to be stated age, dressed in sparkly clothes with heavy make-up Behavior: Intrusive, loud on the unit at times, insomnia. Patient exhibiting signs of marquita, appears religiously preoccupied. Speech: Patient's speech is rapid and pressured. Mood/Affect: Mood is labile, affect is bright and animated. Suicidality/Homicidality: Patient denies having any suicidal or homicidal ideati on intent or plan. Perceptions: Patient denies any auditory or visual hallucinations. Though content/process: Thought content contains grandiose delusions, and thought process is rambling with flight of ideas. Memory and concentration: AOX3, fair Judgment and insight: poor Assessment/Plan: Continue with current diagnosis. Patient continues to meet criteria for inpatient psychiatric admission for symptom stabilization and safety. Patient will be maintained on current psychotropic medication regimen. Monitor response to Abilify Maintena. She is refusing a mood stabilizer. Monitor for medication compliance and for any psychotropic medication side effects. Will continue to monitor ongoing response to treatment. Encouraged participation in milieu.
[2022-11-12 06:42] VITALS: BP 163/78; PULSE 75; RESP 20; TEMP 97.8
[2022-11-12] MEDS: NICOTINE 14MG/24HR PATCH TRANSDERM SCH (08:17)
[2022-11-12] MEDS: lisinopriL 10 MG TAB PO SCH (08:18)
[2022-11-12] MEDS: METOPROLOL TARTRATE 25 MG TAB PO SCH (08:18)
--- NOTE | 2022-11-12 11:42 | P.DS ---
Providers Date of admission: 11/06/22 17:40 Expected date of discharge: 11/12/22 Attending physician: Primitivo Covington MD Consults: 11/06/22 17:43 Consult Physician Routine Consulting Provider: Caroline Thorne Consult Reason/Comments: H&P and medical Do you want consulting provider notified?: Yes Primary care physician: Stated None - Discharge Diagnosis(es) (1) Bipolar I disorder, most recent episode manic, severe without psychotic features Current Visit: Yes Status: Acute Priority: High (2) Non compliance w medication regimen Current Visit: Yes Status: Acute Priority: High (3) Anxiety disorder Current Visit: Yes Status: Chronic Priority: Medium (4) Nicotine dependence Current Visit: Yes Status: Chronic Priority: Low Hospital Course: Admission HPI: Patient is a , unemployed, 42-year-old female with significant history of bipolar 1 disorder who presents to the hospital on 11/06/2022, under petition for mental health evaluation due to acute marquita. Patient presented to the hospital her 11/06/2022, brought in some emergency department by the [facility] [employer] [facility]'s [facility] from [facility]. The patient was noted in the emergency department to be overtly manic and agitated. She spat on the nurse. She was administered medications to sedate. She was disorganized, pressured, belligerent, abrasive, swearing, and making multiple lewd statements. She also presented with temple preoccupation and history of visual hallucinations. She was subsequently admitted onto our psychiatric unit. Upon evaluation on the psychiatric unit, the patient continues to present as overtly manic. She has very poor insight and does not believe that she requires any treatment. She states that once for court order lapsed, she stopped taking her medications. She believes she does not need to be on any medications. She is unable to provide a clear history of events leading up to this hospitalization however does report that her neighbor is probably the reason why she is here. She states that her neighbor and her have not been getting along and that she has been constantly recording her and making mean comments towards her. The patient herself denies any suicidal or homicidal ideation, intention, and/or plan. She does report occasional auditory hallucinations and visual hallucinations however is vehemently denying any at this time. The patient firmly states that she does not require any medications. Second clinical certificate was filled out due to the patient's acute marquita and history of nonadherence with treatment. Patient has significant history of bipolar 1 disorder. The patient has trialed numerous psychiatric medications including Zyprexa, Depakote, and Abilify. She was last discharged on a regimen of Abilify maintena. She was last hospitalized on our psychiatric unit in May 2021. She is open with [facility]. Patient denies any history of suicide attempts in the past. Hospital course: Upon admission to the unit patient was initially presented as overtly manic, expansive, grandiose, impulsive, intrusive, and labile. The patient had limited insight and does not believe that she needed further treatment for her marquita. Her insight was poor. Therefore, the patient was petitioned and certified and a second clinical certificate was filled out for the court. The patient did take her scheduled Abilify, stating that she would take the medication in order to facilitate a quicker discharge. As the patient continued to take the medication, she displayed significant improvement in regards to her mood stability and overt grandiosity. She became less religiously preoccupied and more future and goal oriented. She was eventually transitioned to Abilify maintena 400 mg IM on 11/08/2022. Patient spoke of her stressors and engaged in therapy both group and individual. Patient was also seen by medical team for history and physical exam. She developed better insight and judgment. On the day of discharge, the patient is not reporting any suicidal or homicidal ideation, intention, and/or plan. She reports asked firearms other weapons. She had improved sleep. She reported no auditory or visual hallucinations. She denied any grandiose delusions or temple preoccupation today. Although she continues to present with an expansive affect, the patient is directable and less intrusive. The patient was counseled at length and the importance of medication adherence appropriate outpatient follow-up. She was also counseled on abstaining from all substances including alcohol, tobacco, marijuana, and all illicit drugs. She was also counseled on abstaining from being on Adderall as stimulants may trigger her marquita. She reports no medical issues or concerns on the day of discharge and denies any chest pain, shorts of breath, palpitations, akathisia, or tardive dyskinesia. As the patient no longer met criteria for continued inpatient psychiatric hospitalization, she was subsequently discharged after appropriate safety planning. Mental status exam: General Appearance: Patient appears to be stated age is alert, pleasant, and cooperative. Patient is in no acute distress and has fair hygiene and grooming Behavior: Patient is calmly seated without any agitated behavior. Speech: Patient's speech is fluent and nonpressured. Mood/Affect: Patient reports their mood is "much better", affect is expansive and bright. Suicidality/Homicidality: Patient vehemently denies any suicidal or homicidal ideation. Perceptions: Patient denies any auditory or visual hallucinations. Though content/process: There is no evidence of any delusional thought content and thought process is linear and goal-directed. Patient is future oriented. Memory and concentration: AOX3, grossly intact for the purposes of this session. Can spell "WORLD" backwards correctly. Judgment and insight: Improved with guarded prognosis Impression: Bipolar 1 disorder, manic episode Anxiety disorder, unspecified Noncompliance with medication regimen Nicotine dependence Plan: -Continue with discharge today as patient has improved and stabilized psychiatrically and is not currently an imminent threat to herself and/or othe rs. Patient will remain at chronically elevated due to the severity and chronicity of her bipolar disorder. She is also historically nonadherent with treatment regimens. -Continue medications: Abilify 20 mg by mouth daily for mood stabilization Abilify maintena 400 mg IM was administered on 11/08/2022.Next dose due on 12/06/2022. -Patient was counseled on the need for medication compliance and appropriate follow-up at mental health and also primary care for medical issues. Patient verbalized understanding and agreed. -Social work to arrange for and conduct family meeting to ensure safety upon discharge and answer any questions/concerns. Social work also to arrange for patients follow up appointments with [facility] for psychiatric care along with follow up with primary care provider. -Patient counseled on abstaining from recreational drugs and marijuana and alcohol. Was informed/educated on the adverse effects on their physical and mental health. Patient verbally agreed and understood. -Patient was instructed to return to the hospital or seek immediate medical care if their psychiatric or medical symptoms do worsen or reoccur. -Psychoeducation and supportive therapy provided to patient. Risks and benefits of pharmacological treatment versus the risks and benefits of nontreatment weighed and discussed. Informed consent discussion held. Common side effects of psychotropics discussed such as, but not limited to headache, GI disturbance, sexual dysfunction, movement disorders, sedation, and orthostatic hypotension. Life threatening and blackbox warnings of prescribed medications also discussed. Potential risks of operating a vehicle or heavy machinery discussed with patient at length. Advised on importance of compliance and a reliable and responsible manner. Patient advised to review FDA consumer labeling of all medications prior to taking. Patient verbalized understanding of potential risks, and agrees with current treatment plan. Patient advised to medically con tact physician/emergency personnel if any acute changes in condition occur. Vital Signs Temp 97.8 F 11/12/22 06:39 Pulse 75 11/12/22 06:39 Resp 20 11/12/22 06:39 BP 163/78 11/12/22 06:39 Pulse Ox 98 11/12/22 06:39 FiO2 Laboratory Results WBC 5.1 k/uL (3.8-10.6) 11/07/22 07:33 RBC 4.60 m/uL (3.80-5.40) 11/07/22 07:33 Hgb 11.5 gm/dL (11.4-16.0) 11/07/22 07:33 Hct 35.7 % (34.0-46.0) 11/07/22 07:33 MCV 77.5 fL (80.0-100.0) L 11/07/22 07:33 MCH 24.9 pg (25.0-35.0) L 11/07/22 07:33 MCHC 32.2 g/dL (31.0-37.0) 11/07/22 07:33 RDW 15.5 % (11.5-15.5) 11/07/22 07:33 Plt Count 291 k/uL (150-450) 11/07/22 07:33 MPV 7.7 11/07/22 07:33 Neutrophils % 50 % 11/07/22 07:33 Lymphocytes % 39 % 11/07/22 07:33 Monocytes % 6 % 11/07/22 07:33 Eosinophils % 3 % 11/07/22 07:33 Basophils % 1 % 11/07/22 07:33 Neutrophils # 2.5 k/uL (1.3-7.7) 11/07/22 07:33 Lymphocytes # 2.0 k/uL (1.0-4.8) 11/07/22 07:33 Monocytes # 0.3 k/uL (0-1.0) 11/07/22 07:33 Eosinophils # 0.2 k/uL (0-0.7) 11/07/22 07:33 Basophils # 0.0 k/uL (0-0.2) 11/07/22 07:33 Hypochromasia Slight 11/07/22 07:33 Microcytosis Slight 11/07/22 07:33 Sodium 136 mmol/L (137-145) L 11/07/22 07:33 Potassium 4.3 mmol/L (3.5-5.1) 11/07/22 07:33 Chloride 104 mmol/L (98-107) 11/07/22 07:33 Carbon Dioxide 25 mmol/L (22-30) 11/07/22 07:33 Anion Gap 7 mmol/L 11/07/22 07:33 BUN 7 mg/dL (7-17) 11/07/22 07:33 Creatinine 0.57 mg/dL (0.52-1.04) 11/07/22 07:33 Est GFR (CKD-EPI)AfAm >90 (>60 ml/min/1.73 sqM) 11/07/22 07:33 Est GFR (CKD-EPI)NonAf >90 (>60 ml/min/1.73 sqM) 11/07/22 07:33 Glucose 91 mg/dL (74-99) 11/07/22 07:[address] Glu mg/dL 105 mg/dL 11/07/22 07:33 Hemoglobin A1c 5.3 % (<=6.0) 11/07/22 07:33 Calcium 9.0 mg/dL (8.4-10.2) 11/07/22 07:33 Total Bilirubin 0.5 mg/dL (0.2-1.3) 11/07/22 07:33 AST 26 U/L (14-36) 11/07/22 07:33 ALT 18 U/L (4-34) 11/07/22 07:33 Alkaline Phosphatase 47 U/L (38-126) 11/07/22 07:33 Total Protein 7.1 g/dL (6.3-8.2) 11/07/22 07:33 Albumin 4.0 g/dL (3.5-5.0) 11/07/22 07:33 Triglycerides 56.60 mg/dL (0.00-149.00) 11/07/22 07:33 Cholesterol 157.00 mg/dL (0.00-200.00) 11/07/22 07:33 LDL Cholesterol, Calc 83.0 mg/dL (0.0-131.0) 11/07/22 07:33 VLDL Cholesterol, Calc 11.32 mg/dL (5.00-40.00) 11/07/22 07:33 HDL Cholesterol 62.70 mg/dL (40.00-60.00) H 11/07/22 07:33 Cholesterol/HDL Ratio 2.50 Ratio 11/07/22 07:33 TSH 1.270 mIU/L (0.465-4.680) 11/07/22 07:33 Urine Color Yellow 11/06/22 17:59 Urine Appearance Clear (Clear) 11/06/22 17:59 Urine pH 5.0 (5.0-8.0) 11/06/22 17:59 Ur Specific Lapel 1.013 (1.001-1.035) 11/06/22 17:59 Urine Protein Trace (Negative) H 11/06/22 17:59 Urine Glucose (UA) Negative (Negative) 11/06/22 17:59 Urine Ketones Negative (Negative) 11/06/22 17:59 Urine Blood Negative (Negative) 11/06/22 17:59 Urine Nitrite Negative (Negative) 11/06/22 17:59 Urine Bilirubin Negative (Negative) 11/06/22 17:59 Urine Urobilinogen <2.0 mg/dL (<2.0) 11/06/22 17:59 Ur Leukocyte Esterase Small (Negative) H 11/06/22 17:59 Urine RBC <1 /hpf (0-5) 11/06/22 17:59 Urine WBC 2 /hpf (0-5) 11/06/22 17:59 Ur Squamous Epith Cells 3 /hpf (0-4) 11/06/22 17:59 Urine Bacteria Rare /hpf (None) H 11/06/22 17:59 Hyaline Casts 20 /lpf (0-2) H 11/06/22 17:59 Urine Mucus Few /hpf (None) H 11/06/22 17:59 Urine HCG, Qual Not Detected (Not Detectd) 11/06/22 17:59 Urine Opiates Screen Not Detected (NotDetected) 11/06/22 18:03 Ur Oxycodone Screen Not Detected (NotDetected) 11/06/22 18:03 Urine Methadone Screen Not Detected (NotDetected) 11/06/22 18:03 Ur Propoxyphene Screen Not Detected (NotDetected) 11/06/22 18:03 Ur Barbiturates Screen Not Detected (NotDetected) 11/06/22 18:03 U Tricyclic Antidepress Not Detected (NotDetected) 11/06/22 18:03 Ur Phencyclidine Scrn Not Detected (NotDetected) 11/06/22 18:03 Ur Amphetamines Screen Not Detected (NotDetected) 11/06/22 18:03 U Methamphetamines Scrn Not Detected (NotDetected) 11/06/22 18:03 U Benzodiazepines Scrn Detected (NotDetected) H 11/06/22 18:03 Urine Cocaine Screen Not Detected (NotDetected) 11/06/22 18:03 U Marijuana (THC) Screen Detected (NotDetected) H 11/06/22 18:03 Coronavirus (PCR) Not Detected (Not Detectd) 11/06/22 15:39 Allergies Allergy/AdvReac Type Severity Reaction Status Date / Time No Known Allergies Allergy Verified 11/06/22 12:01 Patient Condition at Discharge: Stable Plan - Discharge Summary Discharge Rx Participant: No New Discharge Prescriptions: New ARIPiprazole IM [Abilify Maintena] 400 mg IM QMONTHLY 1 Days #1 each ARIPiprazole [Abilify] 20 mg PO DAILY 12 Days #12 tab Continue lisinopriL 30 mg PO DAILY Metoprolol Tartrate [Lopressor] 25 mg PO BID Discontinued Dextroamphetamine/Amphetamine [Adderall] 20 mg PO BID Discharge Medication List Metoprolol Tartrate [Lopressor] 25 mg PO BID 11/06/22 [History] lisinopriL 30 mg PO DAILY 11/06/22 [History] ARIPiprazole IM [Abilify Maintena] 400 mg IM QMONTHLY 1 Days #1 each 11/12/22 [Rx] ARIPiprazole [Abilify] 20 mg PO DAILY 12 Days #12 tab 11/12/22 [Rx] Follow up Appointment(s)/Referral(s): [facility] [Outside] - 11/13/22 11:00 am (11-13-22 at 11:00 with Paulina Whitaker 11-20-22 at 11:[address] Adrian) None,Stated [Primary Care Provider] - 1-2 days Patient Instructions/Handouts: How to Stop Smoking (DC), Bipolar Disorder (DC) Activity/Diet/Wound Care/Special Instructions: Avoid the use of street drugs and alcohol. Take all medications as prescribed. When you are in need of refills on your medications, please contact your medical provider and/or outpatient psychiatrist/provider to have this done. Please go to your scheduled outpatient appointment for aftercare treatment. If symptoms return or become worse, call the crisis line at and/or go to the nearest emergency room for evaluation. National Suicide Hotline 558. Discharge Disposition: HOME SELF-CARE
== END 2022-11-12 13:48 | disposition home or self-care (01) | DRG 753 ==
LOC: EC 10:27 → 3MHU 17:40
PROVIDERS: ADMIT Psychiatry & Neurology Psychiatry; ATTEND Psychiatry & Neurology Psychiatry
DX: F31.13 Bipolar disorder, current episode manic without psychotic features, severe (principal); R45.851 Suicidal ideations; I10 Essential (primary) hypertension; F90.9 Attention-deficit hyperactivity disorder, unspecified type; F41.9 Anxiety disorder, unspecified; Z91.148 Patient's other noncompliance with medication regimen for other reason; Z76.5 Malingerer [conscious simulation]; Z98.82 Breast implant status; Z20.822 Contact with and (suspected) exposure to COVID-19; Z71.6 Tobacco abuse counseling
CPT/HCPCS: 80053; 80061; 80306; 81001; 81025; 82075; 83036; 84443; 85025; 87635; 96372; 99285

== ENCOUNTER 2023-08-08 13:36 | Inpatient (IN) | payer MEDICAID, OTHER ==
--- NOTE | 2023-08-08 14:30 | ED ---
General Adult HPI - General Chief complaint: Psychiatric Symptoms Stated complaint: mental health Time Seen by Provider: 08/08/23 14:11 Source: patient, police Mode of arrival: ambulatory Limitations: no limitations - History of Present Illness Initial comments: Dictation was produced using [employer] dictation software. please excuse any grammatical, word or spelling errors. Chief Complaint: 43-year-old female presents to the emergency department for EPS evaluation History of Present Illness: Patient is a 43-year-old female with past medical history of psychiatric illness. She is brought in by [facility]. Patient is petition for mental health evaluation. Patient apparently psychotic and called the customer strategy manager on her boyfriend 15 times in the past 2 days. Patient poor historian. States that people are out to get her and take her money. Unable to obtain ROS secondary to mental status - Related Data Home Medications Medication Instructions Recorded Confirmed Metoprolol Tartrate [Lopressor] 25 mg PO BID 11/06/22 11/06/22 lisinopriL 30 mg PO DAILY 11/06/22 11/06/22 Previous Rx's Medication Instructions Recorded ARIPiprazole IM [Abilify Maintena] 400 mg IM QMONTHLY 1 Days #1 each 11/12/22 ARIPiprazole [Abilify] 20 mg PO DAILY 12 Days #12 tab 11/12/22 Allergies Allergy/AdvReac Type Severity Reaction Status Date / Time No Known Allergies Allergy Verified 08/08/23 14:09 Review of Systems ROS Statement: Those systems with pertinent positive or pertinent negative responses have been documented in the HPI. ROS Other: All systems not noted in ROS Statement are negative. Past Medical History Past Medical History: Hypertension History of Any Multi-Drug Resistant Organisms: None Reported Past Surgical History: No Surgical Hx Reported Additional Past Surgical History / Comment(s): breast implants Past Anesthesia/Blood Transfusion Reactions: No Reported Reaction Past Psychological History: ADD/ADHD, Bipolar Smoking Status: Vaper Past Alcohol Use History: None Reported Past Drug Use History: Marijuana - Past Family History Father Family Medical History: No Reported History Mother Family Medical History: No Reported History Brother(s) Family Medical History: No Reported History Sister(s) Family Medical History: No Reported History General Exam - General Exam Comments Initial Comments: General: Well-appearing, nontoxic, no acute distress. Head: Normocephalic, atraumatic Eyes: PERRLA, EOMI ENT: Airway patent Chest: Nonlabored breathing Skin: No visual rash, normal skin tone Neuro: Alert and oriented 3 Musculoskeletal: No gross abnormalities Psychiatric: Tangential speech, flight of ideas, paranoid Limitations: no limitations Course Vital Signs 08/08/23 14:05 Temperature 98.2 F Pulse Rate 117 H Respiratory 20 Rate Blood Pressure 174/118 O2 Sat by Pulse 98 Oximetry Medical Decision Making - Medical Decision Making Was pt. sent in by a medical professional or institution (, PA, INSTRUMENT TECHNOLOGIST, urgent care, hospital, or [facility]...) When possible be specific @ -No Did you speak to anyone other than the patient for history (EMS, parent, family, police, friend...)? What history was obtained from this source @ -No Did you review nursing and triage notes (agree or disagree)? Why? @ -I reviewed and agree with nursing and triage notes Were old charts reviewed (outside hosp., previous admission, EMS record, old EKG, old radiological studies, urgent care reports/EKG's, [facility] records)? Report findings @ -No old charts were reviewed Differential Diagnosis (chest pain, altered mental status, abdominal pain women, abdominal pain men, vaginal bleeding, musculoskeletal, weakness, fever, dyspnea, syncope, headache, dizziness, GI bleed, back pain, seizure, CVA, palpatations, mental health)? @ -Differential Mental Health: Depression, anxiety, bipolar, psychosis, schizophrenia, borderline personality, situational depression, adjustment disorder, behavioral disorder, brain tumor, malingering, substance abuse, encephalopathy, medication reaction, dementia, hypothyroidism, degenerative neurologic disorder, lupus.... This is not meant to be all-inclusive list EKG interpreted by me (3pts min.). @ -None done X-rays interpreted by me (1pt min.). @ -None done CT interpreted by me (1pt min.). @ -None done U/S interpreted by me (1pt. min.). @ -None done What testing was considered but not performed or refused? (CT, X-rays, U/S, labs)? Why? @ -None What meds were considered but not given or refused? Why? @ -None Did you discuss the management of the patient with other professionals (professionals i.e. , PA, INSTRUMENT TECHNOLOGIST, lab, RT, psych nurse, social security benefits interviewer, national sales trainer, teacher, activities officer, top case assembler)? Give summary @ -No Was smoking cessation discussed for >3mins.? @ -No Was critical care preformed (if so, how long)? @ -No Were there social determinants of health that impacted care today? How? (Homelessness, low income, unemployed, alcoholism, drug addiction, transportation, low edu. Level, literacy, decrease access to med. care, usp, rehab)? @ -No Was there de-escalation of care discussed even if they declined (Discuss DNR or withdrawal of care, Hospice)? DNR status @ -No What co-morbidities impacted this encounter? (DM, HTN, Smoking, COPD, CAD, Cancer, CVA, ARF, Chemo, Hep., AIDS, mental health diagnosis, sleep apnea, morbid obesity)? @ -None Was patient admitted / discharged? Hospital course, mention meds given and route, prescriptions, significant lab abnormalities, going to OR and other pertinent info. @ -43-year-old female presents to the emergency department for psychiatric evaluation. Vital signs stable. Patient clearly psychotic at the bedside. Patient physical examination is otherwise benign. Patient has no medical complaints. Medically cleared for EPS evaluation. Patient evaluated by EPS will be admitted to inpatient psych clinical cert completed. Undiagnosed new problem with uncertain prognosis? @ -No Drug Therapy requiring intensive monitoring for toxicity (Heparin, Nitro, Insulin, Cardizem)? @ -No Were any procedures done? @ -No Diagnosis/symptom? Acute, or Chronic, or Acute on Chronic? Uncomplicated (without systemic symptoms) or Complicated (systemic symptoms)? @ -Acute psychosis Side effects of treatment? @ -No Exacerbation, Progression, or Severe Exacerbation? @ -No Poses a threat to life or bodily function? How? (Chest pain, [place], [place], pneumonia, PE, COPD, DKA, ARF, appy, cholecystitis, CVA, Diverticulitis, Homicidal, Suicidal, threat to staff... and all critical care pts) @ -yes Disposition Clinical Impression: Psychosis Disposition: ADMITTED IP TO THIS [facility] Condition: Serious Referrals: None,Stated [Primary Care Provider] - 1-2 days Decision Time: 15:18
[2023-08-08 15:39] LABS: Amphetamine Screen,Urine Not Detected (NotDetected); Barbiturate Screen,Urine Not Detected (NotDetected); Benzodiazepines Screen,Urine Not Detected (NotDetected); Cocaine Screen,Urine Not Detected (NotDetected); Methadone Screen, Urine Not Detected (NotDetected); Opiate Screen,Urine Not Detected (NotDetected); Oxycodone Screen, Urine Not Detected (NotDetected); Phencyclidine Screen,Urine Not Detected (NotDetected); Tricyclic Antidepressant,Urine Not Detected (NotDetected); Urn Cannabinoid Scrn Not Detected (NotDetected)
[2023-08-08] MEDS: chlorproMAZINE 25 MG/ML 2 ML AMP IM STA (16:32)
[2023-08-08] MEDS: LORazepam 2 MG/ML INJ IM STA (16:33)
[2023-08-08] MEDS ORDERED: HALOPERIDOL LACTATE 5 MG/ML 1 ML VIAL IM PRN (19:38)
[2023-08-08] MEDS ORDERED: MAG HYDROX/AL HYDROX/SIMETH 355 ML BOTTLE PO PRN (19:38)
[2023-08-08] MEDS ORDERED: LORazepam 2 MG/ML INJ IM PRN (19:38)
[2023-08-08] MEDS ORDERED: MAGNESIUM HYDROXIDE 2,400 MG/30 ML CUP PO PRN (19:38)
[2023-08-08] MEDS ORDERED: diphenhydrAMINE 50 MG/ML 1 ML VIAL IM PRN (19:42)
[2023-08-08 22:56] LABS: Appearance,Urine Cloudy (Clear); Bacteria,Urine Rare /hpf; Bilirubin,Urine Negative (Negative); Blood,Urine Negative (Negative); Color,Urine Yellow; Glucose,Urine (UA) Negative (Negative); Ketones,Urine 2+ (Negative); Leukocyte Esterase,Urine Negative (Negative); Mucus,Urine Occasional /hpf; Nitrite,Urine Negative (Negative); PH, Urine 5.5 (5.0-8.0); Protein,Urine 1+ (Negative); RBC,Urine 1 /hpf (0-5); Specific Gravity,Urine 1.028 (1.001-1.035); Squamous Epithelial Cell,Urine 6 /hpf (0-4); WBC,Urine 7 /hpf (0-5)
[2023-08-09] MEDS: ACETAMINOPHEN TAB 325 MG TAB PO PRN (05:59)
[2023-08-09] MEDS: IBUPROFEN 600 MG TAB PO PRN (06:01)
[2023-08-09] MEDS: LORazepam 1 MG TAB PO PRN (08:52)
[2023-08-09] MEDS: haloperidoL 5 MG TAB PO PRN (08:52)
[2023-08-09] MEDS ORDERED: NICOTINE 14MG/24HR PATCH TRANSDERM SCH ×2 (10:00)
[2023-08-09] MEDS: NICOTINE 14MG/24HR PATCH TRANSDERM SCH (10:20)
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
[2023-08-09 12:16] LABS: Basophils % (A) 0 %; Eosinophils # (A) 0.1 k/uL (0-0.7); Eosinophils % (A) 2 %; Lymphocytes # (A) 2.1 k/uL (1.0-4.8); Lymphocytes % (A) 38 %; MCH 25.8 pg (25.0-35.0); MCHC 31.6 g/dL (31.0-37.0); MCV 81.6 fL (80.0-100.0); Mean Platelet Volume 7.8; Monocytes # (A) 0.3 k/uL (0-1.0); Monocytes % (A) 5 %; Neutrophils # (A) 2.9 k/uL (1.3-7.7); Neutrophils % (A) 53 %; Platelet Count 240 k/uL (150-450); RBC 4.66 m/uL (3.80-5.40); RDW 15.3 % (11.5-15.5); WBC 5.5 k/uL (3.8-10.6)
[2023-08-09 12:38] LABS: ALT 20 U/L (4-34); AST 33 U/L (14-36); African American GFR (CKD) >90 (>60 ml/min/1.73 sqM); Alkaline Phosphatase 66 U/L (38-126); Anion Gap 9 mmol/L; Bilirubin, Delta 0.2 mg/dL (0.0-0.2); Bilirubin,Unconjugated 0.1 mg/dL (0.0-1.1); Blood Urea Nitrogen 15 mg/dL (7-17); Carbon Dioxide 20 mmol/L (22-30); Chloride 105 mmol/L (98-107); Glucose 118 mg/dL (74-99); Non-African American GFR(CKD) >90 (>60 ml/min/1.73 sqM); Potassium 4.1 mmol/L (3.5-5.1); Sodium 134 mmol/L (137-145); Total Bilirubin 0.3 mg/dL (0.2-1.3); Total Protein 7.3 g/dL (6.3-8.2)
[2023-08-09] MEDS: ARIPiprazole 15 MG TAB PO SCH (12:43)
[2023-08-09] MEDS: LORazepam 1 MG TAB PO STA (12:45)
[2023-08-09] MEDS: traZODone HCL 100 MG TAB PO PRN (20:38)
[2023-08-09 21:18] LABS: Chol/HDL Ratio 3.16 Ratio; LDL Cholesterol,Calculated 94.8 mg/dL (0.0-131.0); VLDL Calculation 18.56 mg/dL (5.00-40.00)
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
[2023-08-10 07:29] LABS: African American GFR (CKD) >90 (>60 ml/min/1.73 sqM); Anion Gap 5 mmol/L; Blood Urea Nitrogen 10 mg/dL (7-17); Calcium 8.7 mg/dL (8.4-10.2); Carbon Dioxide 24 mmol/L (22-30); Chloride 107 mmol/L (98-107); Glucose 89 mg/dL (74-99); Non-African American GFR(CKD) >90 (>60 ml/min/1.73 sqM); Potassium 4.4 mmol/L (3.5-5.1); Sodium 136 mmol/L (137-145)
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
--- NOTE | 2023-08-11 06:56 | P.PN ---
Subjective Progress Note Date: 08/11/23 Patient Name: Laurita Otto Date of : 80 Patient Status: Inpatient Attending Provider: Dorian Rosen Date: 08/11/23 Initialization Date: 08/09/23 09:02 Objective data: the patient was seen chart was reviewed and case discussed with nursing staff Patient reports that the medications are too strong and that she seems to sleep quite a bit and that she took before and have hour nap yesterday afternoon Patient stated that she has little children at home and that she cannot afford to be tired and sleepy Patient requested if her medications could be adjusted or changed She stated that she will be cooperative and wouldn't take the medications as prescribed MENTAL STATUS EXAM: General Appearance: Patient appears to be stated age is alert, and difficult to direct but attempts to cooperate. Patient appears to have fair hygiene and grooming. Behavior: Cooperative Speech: Patient's speech is pressured, when more appropriate Mood/Affect: Patient reports their mood is "ok" affect is fair. Suicidality/Homicidality: Patient is denying any suicidal or homicidal ideation, intention, and/or plan. Perceptions: Patient denies any visual hallucinations and denies any auditory hallucinations. Religiously preoccupied. Though content/process: Flight of ideas and loose associations are evident. Some taoist preoccupation and grandiosity as well. Memory and concentration: a0x3, difficult to redirect. Judgment and insight: Very poor STRENGTHS/WEAKNESSES: Strength is that the patient is resilient. Weakness is that the patient has severe mental illness and a history of nonadherence with treatment. Insight and judgment is very poor. INTELLECT: average IMPRESSIONS: Bipolar 1 disorder, manic episode, severe Anxiety disorder, unspecified Noncompliance with medication regimen Nicotine dependence PLAN: Agree with the current treatment plan and will continue the current medications as prescribed -Patient is admitted under involuntary status to MHU for stabilization of psychiatric symptoms and safety. A second certification was completed and along with petition will be filed for court. -Medications : patient on Abilfy 15mg po daily for psychosis,we'll discontinue the Abilify and start the patient on less sedating antipsychotic like Risperdal 2 mg at nighttime to start within titrated to response throrazine and benedryl prn for agitation. plan will be to transition patient onto GOLD prior to d/c to help ensure compliance. -Ativan and Haldol PRN for agitation/aggression -Patient was informed of the risks, benefits and side effects of the medication -Internal Medicine consult to perform medical evaluation and physical. -NRT - nicotine patch -SW on board for discharge planning. Encourage patient to participate in groups to work on coping skills. 08/11/23 Objective - Vital Signs Vital signs: Vital Signs Temp 98.0 F 08/11/23 06:26 Pulse 113 H 08/11/23 06:26 Resp 18 08/11/23 06:26 BP 177/109 08/11/23 06:26 Pulse Ox 98 08/11/23 06:26 FiO2 - Labs CBC & Chem 7: 08/09/23 11:11 08/10/23 06:03 Labs: Abnormal Lab Results - Last 24 Hours (Table) 08/10/23 Range/Units 06:03 Sodium 136 L (137-145) mmol/L
[2023-08-11] MEDS: METOPROLOL TARTRATE 25 MG TAB PO SCH (07:45)
[2023-08-11] MEDS: METOPROLOL TARTRATE 25 MG TAB PO STA (10:43)
[2023-08-11] MEDS: METOPROLOL TARTRATE 50 MG TAB PO SCH (19:58)
[2023-08-11] MEDS: risperiDONE 2 MG TAB PO SCH (19:58)
[2023-08-12] MEDS: amLODIPine 5 MG TAB PO SCH (07:04)
--- NOTE | 2023-08-12 11:24 | P.PN ---
Progress Note - Text Progress Note Date: 08/12/23 Interval History: Patient was seen in her room, and was directable and agreeable to speak with television script writer at the bedside. Patient is pleasant today. States she is good. Patient remains religiously preoccupied. Fiber Drier Operator spoke to the patient about changing her medication. Patient stated she would prefer nothing, however, she will take whatever to be able to get out and go home. She states that she is not mentally ill, and does not believe she is bipolar. Patient lacks insight for treatment and medication. Patient claims to be sleeping well at night, and her appetite is good. She does state that the risperdal made her feel quite ill, and made her head spin. At this time patient denies any suicidal or homicidal ideations, intent or plan. Patient denies any auditory, visual hallucinations and denies any paranoia or delusions. Patient denies any side effects from the medications and has been compliant with meds. MENTAL STATUS EXAM: General Appearance: Patient appears to be stated age is alert, and difficult to direct but attempts to cooperate. Patient appears to have fair hygiene and gr ooming. Behavior: Patient displays elevated psychomotor activity. Patient is unable to sit still. Constantly moving. intrusive. Speech: Patient's speech is pressured, loud in volume, tangential Mood/Affect: Patient reports their mood is "ok" affect is labile. Patient can be very bright and euphoric one second and very irritable the next. Suicidality/Homicidality: Patient is denying any suicidal or homicidal ideation, intention, and/or plan. Perceptions: Patient denies any visual hallucinations and denies any auditory hallucinations. Religiously preoccupied. Though content/process: Flight of ideas and loose associations are evident. Some samaritan preoccupation and grandiosity as well. Memory and concentration: a0x3, difficult to redirect. Judgment and insight: Very poor/impulsive. improving mildy IMPRESSIONS: Bipolar 1 disorder, manic episode, severe Anxiety disorder, unspecified Noncompliance with medication regimen Nicotine dependence PLAN: -Patient is admitted under involuntary status to MHU for stabilization of psychiatric symptoms and safety. A second certification was completed and along with petition will be filed for court. Deferral is today, Full hearing 08/20 -Medications : d/c risperdal, Invega 3mg qhs for psychosis, [place] 300mg bid for mood stabilization, throrazine and benedryl prn for agitation. plan will be to transition patient onto GOLD prior to d/c to help ensure compliance. -Ativan and Haldol PRN for agitation/aggression -NRT - nicotine patch -SW on board for discharge planning. Encourage patient to participate in groups to work on coping skills. Deferral is today, full hearing 08/20
[2023-08-12] MEDS: LITHIUM CARBONATE 300 MG CAP PO SCH (11:40)
[2023-08-12] MEDS: cloNIDine HCL 0.2 MG TAB PO PRN (16:53)
[2023-08-12] MEDS: PALIPERIDONE 3 MG TAB.ER.24 PO SCH (21:01)
[2023-08-13 06:04] VITALS: TEMP 97.3
--- NOTE | 2023-08-13 10:17 | P.PN ---
Progress Note - Text Progress Note Date: 08/13/23 Interval History: Patient was seen in her room, and was directable and agreeable to speak with check writer salesperson at the bedside. Patient states that she feels confused and constricted today as to why she is still here. She did defer with her civil litigation attorney yesterday, check writer salesperson attempted to explain to the patient that she would need to be transitioned onto a GOLD prior to discharge. Patient hesitantly agreeable. Patient lacks insight for treatment and medication. Patient claims to be sleeping well at night, and her appetite is good. At this time patient denies any suicidal or homicidal ideations, intent or plan. Patient denies any auditory, visual hallucinations and denies any paranoia or delusions. Patient denies any side effects from the medications and has been compliant with meds. MENTAL STATUS EXAM: General Appearance: Patient appears to be stated age is alert, and difficult to direct but attempts to cooperate. Patient appears to have fair hygiene and grooming. Behavior: Patient is seated without agitated behavior. intrusive. Speech: Patient's speech is not pressured, interrupting. Mood/Affect: Patient reports their mood is good affect is congruent Suicidality/Homicidality: Patient is denying any suicidal or homicidal ideation, intention, and/or plan. Perceptions: Patient denies any visual hallucinations and denies any auditory hallucinations. Religiously preoccupied. Though content/process: Flight of ideas and loose associations are evident. Some orthodoxy preoccupation and grandiosity as well.mildly improving Memory and concentration: a0x3, difficult to redirect. Judgment and insight: Very poor/impulsive. improving mildy IMPRESSIONS: Bipolar 1 disorder, manic episode, severe Anxiety disorder, unspecified Noncompliance with medication regimen Nicotine dependence PLAN: -Patient is admitted under involuntary status to MHU for stabilization of psychiatric symptoms and safety. A second certification was completed and along with petition will be filed for court. Deferral is today, Full hearing 08/20 -Medications : increase Invega 6mg qhs for psychosis, Phelan 300mg bid for mood stabilization, throrazine and benedryl prn for agitation. plan will be to transition patient onto GOLD prior to d/c to help ensure compliance. -Ativan and Haldol PRN for agitation/aggression -NRT - nicotine patch -SW on board for discharge planning. Encourage patient to participate in groups to work on coping skills. Patient deferred with her civil litigation attorney. Possible discharge , after first dose GOLD
[2023-08-13] MEDS: LITHIUM CARBONATE 150 MG CAP PO ONE (15:09)
[2023-08-13] MEDS: PALIPERIDONE 6 MG TAB.ER.24 PO SCH (20:18)
[2023-08-13] MEDS: LITHIUM CARBONATE 150 MG CAP PO SCH (20:18)
[2023-08-14 07:11] VITALS: RESP 16
[2023-08-14 08:58] VITALS: BP 138/83; PULSE 88
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
[2023-08-14] MEDS: PALIPERIDONE IM 234 MG/1.5 ML SYG IM STA (10:45)
== END 2023-08-14 14:30 | disposition home or self-care (01) | DRG 753 ==
LOC: EC 13:36 → 3MHU 19:31
PROVIDERS: ADMIT Psychiatry & Neurology Psychiatry; ATTEND Psychiatry & Neurology Psychiatry
DX: F31.10 Bipolar disorder, current episode manic without psychotic features, unspecified (principal); F17.200 Nicotine dependence, unspecified, uncomplicated; Z79.899 Other long term (current) drug therapy; Z91.148 Patient's other noncompliance with medication regimen for other reason; E87.1 Hypo-osmolality and hyponatremia; F90.9 Attention-deficit hyperactivity disorder, unspecified type; Z56.0 Unemployment, unspecified; Z91.199 Patient's noncompliance with other medical treatment and regimen due to unspecified reason; Z98.82 Breast implant status; Z11.52 Encounter for screening for COVID-19
CPT/HCPCS: 80048; 80053; 80061; 80178; 80306; 81001; 81025; 82075; 82248; 83036; 84443; 85025; 87635; 96372; 99285